=== PATIENT | female | born 1940 | race Caucasian/White ===

== ENCOUNTER 2019-03-31 19:33 | Inpatient (IN) | payer MEDICARE ==
--- NOTE | 2019-03-31 20:00 | ED ---
Adult Trauma - HPI Summary HPI Summary: 78 year old female presents to the ED with a chief complaint of right hip and knee pain secondary to falling this morning. Patient was walking in her kitchen when she tripped and fell on her right side. She denies LOC or head trauma. Patient took a nap after the fall and reports severe pain after she woke up. She reports shooting pain from her hip down her RLE. No chest pain or shortness of breath, although patient reports chronic SOB. History of right-sided sciatica , for which she just finished her course of steroids for. PMHx of DM, HTN, and depression. No history of CVA or tachycardia. PSHx of 2 c-sections and 2 carpal tunnels. FHx of PR and CVA. Patient does not smoke tobacco, drink alcohol, or do recreational drugs. - History of Current Complaint Chief Complaint: EDFall Stated Complaint: FALL PER PT Hx Obtained From: Patient ?: No Mechanism of Injury: Fall Ambulatory at the Scene: Yes Loss of Consciousness: no loss of consciousness Onset/Duration: Started Hours Ago, Still Present, Worse Since - After she took a nap Onset of Pain: Immediate - Immediate but worse throughout the day. Onset Severity: Severe Current Severity: Severe Pain Intensity: 8 Pain Scale Used: 0-10 Numeric Location: Abdomen/Pelvis, Extremities - RLE Character: Sharp - and shooting Associated Signs & Symptoms: Negative: SOB, Chest Pain, Loss of Consciousness - Allergy/Home Medications Allergies/Adverse Reactions: Allergies Allergy/AdvReac Type Severity Reaction Status Date / Time nickel Allergy Blisters Verified 03/31/19 19:41 Home Medications: Home Medications BuPROPion XL* [Bupropion XL*] 1 tab PO DAILY 04/01/19 [History Confirmed ] Divalproex Sodium [Divalproex Sodium ER] 1 tab PO DAILY 04/01/19 [History Confirmed 04/01/19] PMH/Surg Hx/FS Hx/Imm Hx Endocrine/Hematology History: Reports: Hx Diabetes - TYPE II ON ORAL MEDICATIONS Cardiovascular History: Reports: Hx Hypertension - ON MEDICATION GI History: Reports: Hx Gastroesophageal Reflux Disease - ON MEDICATION FOR Musculoskeletal History: Reports: Hx Arthritis - HANDS Sensory History: Reports: Hx Cataracts - BILATERAL, Hx Contacts or Glasses - GLASSES Denies: Hx Hearing Aid Opthamlomology History: Reports: Hx Cataracts - BILATERAL, Hx Contacts or Glasses - GLASSES Psychiatric History: Reports: Hx Depression - ON MEDICATION FOR - Cancer History Hx Chemotherapy: No Hx Radiation Therapy: No - Surgical History Surgery Procedure, Year, and Place: CARPAL TUNNEL RELEASE BILATERALLY. C- SECTIONS X 2 Hx Anesthesia Reactions: No Infectious Disease History: No Infectious Disease History: Denies: Traveled Outside the [place] in Last 30 Days - Family History Known Family History: Positive: Cardiac Disease, Other - CVA, PR - Social History Substance Use Type: Reports: None Smoking Status (MU): Never Smoked Tobacco Review of Systems - ROS Summary Review of Systems Summary: Home Medications Medication Instructions Recorded Confirmed Type Atorvastatin* [Lipitor*] 10 mg PO QAM 06/07/12 03/29/14 History Bupropion XL* [Wellbutrin XL (NF)] 150 mg PO QAM 06/07/12 03/29/14 History Citalopram TAB* [Celexa TAB*] 20 mg PO QPM 06/07/12 03/29/14 History Hydrochlorothiazide TAB* 25 mg PO QAM 06/07/12 03/29/14 History [Hydrodiuril TAB*] Lisinopril TAB* [Prinivil TAB*] 20 mg PO QAM 06/07/12 03/29/14 History Metformin HCl [Metformin HCl ER] 500 mg PO BID 06/07/12 03/29/14 History Omeprazole CAP (NF) [Prilosec CAP*] 20 mg PO QAM 06/07/12 03/29/14 History glipiZIDE TAB* [Glucotrol TAB*] 10 mg PO BID 06/07/12 03/29/14 History Negative: Fever Negative: Chest Pain Negative: Shortness Of Breath Positive: Arthralgia - right hip and knee, shooting pain from her hip. All Other Systems Reviewed And Are Negative: Yes Physical Exam - Summary Physical Exam Summary: General: Obese female. Moderately anxious appearing. Moderate discomfort with movement. HEENT: Normocephalic, Atraumatic. Eyes: Conjuctiva normal, PERRL. Ears: TMs within normal limits. Nares: (-) discharge, (-) erythema. Oropharynx: Clear, mucous membranes moist, (-) exudates. Neck: Soft, FROM, (-) lymphadenopathy, (-) thyromegaly, (-) JVD. Cardiovascular: Sinus rhythm, (-) murmur. Very tachycardic initially. Lungs: Clear to auscultation bilaterally (-) wheezes, (-) rales, (-) rhonchi. Abdomen: Soft, non-tender, non-distended, (-) organomegaly, normal bowel sounds. Back: (-) CVA tenderness Extremities: Tenderness of right posterior buttock. Normal strength, sensation, and reflexes and pulses in lower extremities bilaterally. Trace lower extremity edema. Skin: Warm, dry, (-) rash. Neuro: Alert and oriented x3, no focal deficits. Psychiatric: Mood normal, affect normal. Triage Information Reviewed: Yes Vital Signs On Initial Exam: Initial Vitals Temp Pulse Resp BP Pulse Ox 96.0 F 120 18 195/164 98 03/31/19 19:34 03/31/19 19:34 03/31/19 19:34 03/31/19 19:34 03/31/19 19:34 Vital Signs Reviewed: Yes Procedures - Sedation Patient Received Moderate/Deep Sedation with Procedure: No Diagnostics - Vital Signs Vital Signs Temp Pulse Resp BP Pulse Ox 03/31/19 19:34 96.0 F 120 18 195/164 98 - Laboratory Result Diagrams: 04/02/19 06:02 04/03/19 06:08 Lab Statement: Any lab studies that have been ordered have been reviewed, and results considered in the medical decision making process. - Radiology Chest XR Radiology Interpretation Completed By: ED Physician Summary of Radiographic Findings: Increased interstitial markings consistent CHF. No obvious infiltrate. An ED physician has interpreted and reviewed this scan. Pending official read. - EKG 1945 Cardiac Rate: Tachycardia - 191 bpm EKG Rhythm: Sinus Tachycardia ST Segment: Normal Summary of EKG Findings: EKG at 1945 reveals wide complex tachycardia with rate of 191 BPM. No STEMI. This EKG was reviewed and interpreted by Dr. Tong. 1957 Cardiac Rate: Tachycardia - 150 bpm EKG Rhythm: SVT Summary of EKG Findings: EKG at 1957 reveals SVT with rate of [address] elevation at III. No STEMI. This EKG was reviewed and interpreted by Dr. Tong. 2017 Cardiac Rate: Bradycardia - 58 bpm EKG Rhythm: Sinus Bradycardia ST Segment: Normal Ectopy: None Summary of EKG Findings: EKG at 2018 reveals bradycardic sinus rhythm with rate of 58 BPM, no acute changes, no ischemic changes. No STEMI. This EKG was reviewed and interpreted by Dr. Tong. Re-Evaluation - Re-Evaluation First Eval Re-Evaluation Time: 21:57 Change: Improved Comment: Patient is feeling better after being given an ice pack toradol. Heart rate is stable. I spoke to Dr. Harman Lopez who agrees to admit as observation. Adult Trauma Course/Dx - Course Course Of Treatment: 78-year-old female presents with left hip pain after fall this morning. Describes as sciatica. She states she just had an episode of this which just resolved. Pain has increased through the day. Worse with movement. No problem controlling bowel or bladder. No foot drop. upon arrival patient has heart rate of 190. Patient had no chest pain, shortness of breath. Denies any previous history of this. Patient's heart rate fluctuates greatly in the emergency room. At 150. 120. Appears to be wide complex, SVT at one point. Prior to any medication given the patient's heart rate decreases to the 60s. Sinus rhythm. she has workup demonstrates a negative troponin. Elevated BNP. chest x-ray negative. Patient referred to hospitalist for admission. - Diagnoses Provider Diagnoses: Fall, Right sided sciatica, Tachycardia - Physician Notifications Discussed Care Of Patient With: Harman Lopez - Hospitalist Time Discussed With Above Provider: 22:00 Instructed by Provider To: Admit As Observation - I spoke to Dr. Lopez at 2200. He recommends this patient for admission as observation. Admit/Transition Orders Completed By ED Provider: Yes Discharge ED - Sign-Out/Discharge Documenting (check all that apply): Patient Departure - admit - Discharge Plan Condition: Stable Disposition: ADMITTED TO [facility] - Billing Disposition and Condition Condition: STABLE Disposition: Admitted to [facility] - Attestation Statements Document Initiated by Scribe: Yes Documenting Scribe: Yaw Muniz Provider For Whom Nickibthuy is Documenting (Include Credential): Cassandra Tong MD Scribe Attestation: Yaw Xiong, scribed for Cassandra Tong MD on 04/03/19 at 2215. Scribe Documentation Reviewed: Yes Provider Attestation: The documentation as recorded by the scribYaw daley accurately reflects the service I personally performed and the decisions made by me, Cassandra Tong MD Status of Scribe Document: Viewed
--- OUTSIDE RECORDS SUMMARY | 2019-03-31 20:03 | XMS REPORT | Continuity of Care Document ---
:1940 External Reference #:[id number] Author Name Miki Gould M.D. Address [address] [place] [id number] Problems Description No Information Available Social History Type Date Description Comments Sex Unknown Tobacco Use Start: Unknown End: Former Cigarette Smoker quit 30 years ago Unknown ETOH Use Occasionally consumes alcohol Recreational Drug Use Denies Drug Use Enjoy Exercising Enjoys exercising walks some Allergies, Adverse Reactions, Alerts Description No Known Drug Allergies Medications Active Medications SIG Qnty Indications Ordering Date Provider Medrol dose pack take 21units Miki Gould, 03/26/2019 4mg TBPK as directed M.D. Ibuprofen 200 2-3 tabs by 60tabs M54.31 Miki Gould, 03/14/2019 200mg Tablets mouth three M.D. times a day for pain. Take with food. May cause heartburn. Bumetanide 1 by mouth 30tabs Carlos 04/21/2018 0.5mg Tablets every day as MD Thom needed for swollen ankles Blood Glucose Monitoring use as directed 1units Carlos 04/21/2018 System to test blood MD Thom W/Device Kit glucose once daily as per insurance coverage Glycolax 17 g daily in 8 255gm Pricilla 04/15/2018 3350NF Powder oz of water. Andrae Vásquez., R.D. Bupropion Hydrochloride 1 by mouth 90tabs Carlos 04/06/2018 ER (XL) every day MD Thom 300mg Tablets ER 24HR Glipizide 1 tab by mouth 90tabs E11.65 Carlos 07/22/2017 5mg Tablets with breakfast. MD Thom True Metrix Self use as directed 150units E11.65 Carlos Monitoring Blood Glucose to test blood MD Thom Strips sugars once Strips daily dx: e11.65 or as per brand covered by insurance. Trueplus Lancets 28G use as directed 200units Carlos 28G Misc to test blood MD Thom sugars once daily dx: e11.65 or as per brand covered by insurance Metformin HCL ER 2 tab by mouth 360tabs Carlos 500mg Tablets every morning MD Thom ER 24HR and 2 tabs by mouth in the evening Citalopram Hydrobromide 1 by mouth 90tabs Carlos 20mg every day MD Thom Tablets Atorvastatin Calcium 1 tab by mouth 90tabs Carlos 10mg every day MD Thom Tablets Divalproex Sodium ER 1 tab by mouth 90tabs Carlos 250mg every night at MD Thom Tablets ER 24HR bedtime Hydrochlorothiazide 1 tab by mouth 90tabs Carlos 25mg every day MD Thom Tablets Lisinopril 1 tab by mouth 90tabs Carlos 20mg Tablets every day MD Thom Omeprazole 1 by mouth 90caps Carlos 20mg Capsules DR every day MD Thom Immunizations CPT Code Status Date Vaccine Lot # [id number] Given 10/26/2017 Influenza Vaccine High Dose PF [id number] Given 03/14/2017 Prevnar-13 Pneumococcal Conjugate Vaccine [id number] 32948 Given 12/15/2016 Influenza Virus Vaccine, Quadrivalent, 3 Yr > Quad, Preserv Free 62906 Given 12/30/2014 Influenza Virus Vaccine, Quadrivalent, 3 Yr > Quad, Preserv Free 51639 Given 11/19/2011 Influenza Virus Vaccine, Quadrivalent, 3 Yr > Quad, Preserv Free [id number] Given 12/04/2008 Pneumovax 23 (PPSV23) 65+ years or high risk 2 to 64 year old Vital Signs Date Vital Result Comment 03/14/2019 9:59am Weight 214.00 lb Weight 97.070 kg BP Systolic 128 mmHg BP Diastolic 64 mmHg Heart Rate 70 /min Body Temperature 97.7 F Respiratory Rate 16 /min Height 61 inches 5'1" BMI (Body Mass Index) 40.4 kg/m2 O2 % BldC Oximetry 98 % 10/05/2018 3:12pm Weight 215.00 lb Weight 97.524 kg BP Systolic 120 mmHg BP Diastolic 80 mmHg Heart Rate 68 /min Body Temperature 97.8 F Respiratory Rate 16 /min O2 % BldC Oximetry 98 % Results Test Acquired Date Facility Test Result H/L Range Note CBC Auto 03/14/2019 [facility] White Blood 5.6 10^3/ uL Normal 3.5-10.8 Diff [phone] Count Red Blood Count 3.89 10^6/uL Normal 3.70-4.87 Hemoglobin 9.6 g/dL Low 12.0-16.0 Hematocrit 30 % Low 35-47 Mean Corpuscular Volume 76 fL Low 80-97 Mean Corpuscular Hemoglobin 25 pg Low 27-31 Mean Corpuscular HGB Conc 33 g/dL Normal 31-36 Red Cell Distribution Width 17 % High 10-15 Platelet Count 215 10^3/uL Normal 150-450 Mean Platelet Volume 9.3 fL Normal 7.4-10.4 Abs Neutrophils 3.7 10^3/uL Normal 1.5-7.7 Abs Lymphocytes 1.4 10^3/uL Normal 1.0-4.8 Abs Monocytes 0.5 10^3/uL Normal 0-0.8 Abs Eosinophils 0.1 10^3/uL Normal 0-0.6 Abs Basophils 0.0 10^3/uL Normal 0-0.2 Abs Nucleated RBC 0.0 10^3/uL Granulocyte % 65.3 % Lymphocyte % 24.7 % Monocyte % 8.7 % Eosinophil % 1.0 % Basophil % 0.3 % Nucleated Red Blood Cells % 0.0 Comp Metabolic 03/14/2019 [facility] Sodium 137 mmol/ L Normal 135-145 Panel [phone] Potassium 4.7 mmol/L Normal 3.5-5.0 Chloride 104 mmol/L Normal 101-111 Co2 Carbon Dioxide 24 mmol/L Normal 22-32 Anion Gap 9 mmol/L Normal 2-11 Glucose 89 mg/dL Normal 70-100 Blood Urea Nitrogen 30 mg/dL High 6-24 Creatinine 1.44 mg/dL High 0.51-0.95 BUN/Creatinine Ratio 20.8 High 8-20 Calcium 9.0 mg/dL Normal 8.6-10.3 Total Protein 6.6 g/dL Normal 6.4-8.9 Albumin 3.9 g/dL Normal 3.2-5.2 Globulin 2.7 g/dL Normal 2-4 Albumin/Globulin Ratio 1.4 Normal 1-3 Total Bilirubin 0.40 mg/dL Normal 0.2-1.0 Alkaline Phosphatase 117 U/L High 34-104 Alt 11 U/L Normal 7-52 Ast 12 U/L Low 13-39 Egfr Non- 35.4 >60 Egfr 42.8 >60 1 Laboratory test 03/14/2019 [facility] Hemoglobin A1c 7.4 % High 4.0-5.6 2 finding [phone] (Glyco HGB) TSH (Thyroid Stim Horm) 2.77 mcIU/mL Normal 0.34-5.60 3 Lipid Profile 03/14/2019 [facility] Triglycerides 98 mg/dL 4 (Trig/Chol/HDL) [phone] Cholesterol 109 mg/dL 5 HDL Cholesterol 43.5 mg/dL 6 LDL Cholesterol 46 mg/dL 7 Laboratory test finding 10/05/2018 In House Lab Hemoglobin A1c Poct 7.1 [phone] 1 Because ethnic data is not always readily available, this report includes an eGFR for both -Americans and non- Americans. The National Kidney Disease Education Program (NKDEP) does not endorse the use of the MDRD equation for patients that are not between the ages of 18 and 70, are , have extremes of body size, muscle mass, or nutritional status, or are non- or non-. According to the National Kidney Foundation, irrespective of diagnosis, the stage of the disease is based on the level of kidney function: Stage Description GFR(mL/min/1.73 m(2)) 1 Kidney damage with normal or decreased GFR 90 2 Kidney damage with mild decrease in GFR 60-89 3 Moderate decrease in GFR 30-59 4 Severe decrease in GFR 15-29 5 Kidney failure <15 (or dialysis) 2 Therapeutic target for the treatment of diabetes mellitus patients is <7% HBA1C, and in selective patients <6.0%. Please refer to [place] [employer] Association diabetic care guidelines for further information. 3 [id number] 4 Desirable: <150 Borderline High: 150-199 High: 200-499 Very High: >500 5 Desirable: <200 Borderline High: 200-239 High: >239 6 Low: <40 Desirable: 40-60 High: >60 7 Desirable: <100 Near Optimal: 100-129 Borderline High: 130-159 High: 160-189 Very High: >189 Procedures Description No Information Available Medical Devices Description No Information Available Encounters Type Date Location Provider Dx Diagnosis Office Visit 10/05/2018 Main Office Miki Gould M.D. M79.671 Pain in right foot 3:15p E11.65 Type 2 diabetes mellitus with hyperglycemia Assessments Date Code Description Provider 03/14/2019 M54.31 Sciatica, right side Miki Gould M.D. 03/14/2019 E11.65 Type 2 diabetes mellitus with hyperglycemia Miki Gould M.D. 10/05/2018 M79.671 Pain in right foot Miki Gould M.D. 10/05/2018 E11.65 Type 2 diabetes mellitus with hyperglycemia Miki Gould M.D. Plan of Treatment Future Appointment(s):04/04/2019 11:00 am - Miki Gould M.D. at Main Office Functional Status Description No Information Available Mental Status Description No Information Available Referrals Description No Information Available
[2019-03-31] MEDS ORDERED: Labetalol IV* 5 MG/ML 20 ML VIAL IV PUSH ONE (20:07)
[2019-03-31] MEDS ORDERED: Ketorolac INJ* 30 MG/ML 1 ML VIAL IV PUSH ONE (20:08)
[2019-03-31] MEDS ORDERED: Aspirin 81 mg CHEW TAB* 81 MG TAB.CHEW PO ONE (20:17)
[2019-03-31 20:50] LABS: ABS Basophils 0.1 10^3/ul (0-0.2); ABS Lymphocytes 1.9 10^3/ul (1.0-4.8); ABS Monocytes 0.8 10^3/ul (0-0.8); ABS Neutrophils 7.6 10^3/ul (1.5-7.7); Eosinophil % 0.3 %; Hematocrit 30 % (35-47); Hemoglobin 9.8 g/dL (12.0-16.0); Lymphocyte % 18.7 %; Mean Corpuscular HGB Conc 33 g/dL (31-36); Mean Corpuscular Hemoglobin 24 pg (27-31); Mean Corpuscular Volume 75 fL (80-97); Mean Platelet Volume 8.3 fL (7.4-10.4); Platelet Count 265 10^3/uL (150-450); Red Blood Count 4.01 10^6 /uL (3.70-4.87); Red Cell Distribution Width 17 % (10-15); White Blood Count 10.4 10^3/uL (3.5-10.8)
[2019-03-31 20:58] LABS: INR 1.11 (0.82-1.09)
[2019-03-31 21:08] LABS: ALT 12 U/L (7-52); AST 8 U/L (13-39); Albumin 4.1 g/dL (3.2-5.2); Albumin/Globulin Ratio 1.4 (1-3); Alkaline Phosphatase 102 U/L (34-104); Anion Gap 8 mmol/L (2-11); BUN/Creatinine Ratio 22.5 (8-20); Blood Urea Nitrogen 34 mg/dL (6-24); CO2 Carbon Dioxide 24 mmol/L (22-32); Calcium 9.5 mg/dL (8.6-10.3); Chloride 106 mmol/L (101-111); EGFR African American 40.5 (>60); EGFR Non-African American 33.5 (>60); Glucose 90 mg/dL (70-100); Magnesium 1.1 mg/dL (1.9-2.7); Potassium 4.3 mmol/L (3.5-5.0); Sodium 138 mmol/L (135-145); Total Protein 7.1 g/dL (6.4-8.9)
[2019-03-31 21:09] LABS: Troponin I 0.01 ng/mL (<0.03)
[2019-03-31 21:49] LABS: TSH (Thyroid Stimulating Horm) 3.88 mcIU/mL (0.34-5.60)
[2019-03-31] MEDS ORDERED: Magnesium Sulf 4 GM/100 ML IV* 4,000 MG/100 ML BAG IVPB ONE (22:50)
[2019-03-31] MEDS ORDERED: Adenosine* 3 MG/ML VIAL ONE (23:50)
[2019-03-31] MEDS: Adenosine* 3 MG/ML VIAL IV PUSH ONE ×2 (23:57→23:59)
[2019-03-31] MEDS ORDERED: Adenosine* 3 MG/ML VIAL IV PUSH ONE (23:59)
[2019-04-01] MEDS ORDERED: Adenosine* 3 MG/ML VIAL IV PUSH ONE (00:01)
[2019-04-01] MEDS: Adenosine* 3 MG/ML VIAL IV PUSH ONE (00:01)
[2019-04-01] MEDS ORDERED: Amiodarone IV VIAL** 50 MG/ML 3 ML (150 MG) VIAL ONE (00:03)
[2019-04-01] MEDS ORDERED: Amiodarone 150 MG IVPREMIX* 150 MG/100 ML BAG IV ONE ×2 (00:03→00:05)
[2019-04-01] MEDS ORDERED: Metoprolol Tartrate IV* 1 MG/ML 5 ML VIAL IV ONE (00:08)
[2019-04-01] MEDS ORDERED: Metoprolol Tartrate IV* 1 MG/ML 5 ML VIAL ONE (00:14)
[2019-04-01] MEDS ORDERED: Amiodarone 360 MG IVPREMIX* 360 MG/200 ML BAG IV ONE (00:28)
[2019-04-01 01:08] LABS: % Iron Saturation 5 % (15-55); Iron 24 ug/dL (50-212); Total Iron Binding Capacity 468 mcg/dL (250-450); Transferrin 334 mg/dL (203-362)
[2019-04-01] MEDS ORDERED: Ibuprofen TAB* 400 MG PO PRN (01:09)
[2019-04-01] MEDS: Acetaminophen TAB* 325 MG PO PRN ×3 (01:21→21:05)
[2019-04-01 06:06] LABS: Magnesium 2.3 mg/dL (1.9-2.7); Potassium 4.2 mmol/L (3.5-5.0)
[2019-04-01 06:11] LABS: BUN/Creatinine Ratio 24.4 (8-20); EGFR African American 36.9 (>60); EGFR Non-African American 30.5 (>60)
[2019-04-01] MEDS ORDERED: Perflutren Lipid Microsphere* 3 ML VIAL ONE (08:42)
[2019-04-01] MEDS: Atorvastatin* 10 MG TAB PO SCH (08:59)
[2019-04-01] MEDS: Ferrous Gluconate TAB* 324 MG TAB PO SCH (08:59)
--- NOTE | 2019-04-01 11:02 | ECHO ---
*[facility]* [place] [address] Fax #: [phone] Transthoracic Echocardiogram Patient: Denia Garrison : 1940 Study Date: 04/01/2019 Age: 78 Gender: F HR: 114 bpm Height: 60 in /152.4 cm BSA: 1.92 m^2 Weight: 214.6 lb /97.5 kg BMI: 42 kg/m^2 *Plan Checker: * Nicolette Suresh RDCS RN *Referring Physician: * Harman Lopez *Reading Physician: * Sara Velasquez MD Indications: SOB. Abnormal EKG. History: Risk factors: Hypertension. Diabetes mellitus. Obese. Conclusions Summary: - Study data: Sinus bradycardia to Atrial fibrillation during the exam. - Left ventricle: The cavity size is mildly reduced. Wall thickness is mildly increased. Systolic function is mildly reduced. The estimated ejection fraction is 45-50%. Doppler parameters are consistent with elevated ventricular end-diastolic filling pressure. - Left atrium: The atrium is moderately to severely dilated. - Mitral valve: There is mild regurgitation. - Tricuspid valve: There is trace to mild regurgitation. - Pulmonary arteries: Systolic pressure is mildly increased, estimated to be 38 mm Hg. - No prior echocardiogram to compare. Study data: Transthoracic echocardiogram. Procedure: Transthoracic echocardiography was performed. Image quality was fair. The study was technically limited due to body habitus. Intravenous Definity 3 ml was administered to enhance imaging. Complete 2D, spectral Doppler, and color flow Doppler. Location: ICU Patient status: Observation. Patient room number: ICU 2. Rhythm: Sinus bradycardia to Atrial fibrillation during the exam. Findings Left ventricle: The cavity size is mildly reduced. Wall thickness is mildly increased. Systolic function is mildly reduced. The estimated ejection fraction is 45-50%. There are no regional wall motion abnormalities. Left ventricular diastolic function parameters are indeterminate. Doppler parameters are consistent with elevated ventricular end-diastolic filling pressure. Right ventricle: The cavity size is normal. Systolic function is mildly reduced. [place] relatively hypokinetic. Systolic pressure is mildly increased. Left atrium: The atrium is moderately to severely dilated. Right atrium: The atrium is mildly dilated. Mitral valve: The leaflets are mildly thickened. There is no evidence of stenosis. There is mild regurgitation. Aortic valve: The leaflets are mildly thickened. Cusp separation is normal. There is no evidence of stenosis. There is no significant regurgitation. Tricuspid valve: Not well visualized. There is trace to mild regurgitation. Pulmonic valve: Not well visualized. There is trace to mild regurgitation. Aorta: Aortic root: The aortic root is not dilated. Ascending aorta: The ascending aorta is not dilated. Aortic arch: The aortic arch is not visualized. Pericardium: There is no significant pericardial effusion. Pulmonary arteries: Not well visualized. Systolic pressure is mildly increased, estimated to be 38 mm Hg. Systemic veins: Inferior vena cava: Not well visualized. Measurements Left ventricle Value Ref Right atrium Value Ref DILSHAD, LAX (L) 3.6 cm 3.8 - 5.2 ML dim, ES, A4C 4.3 cm 2.6 - 4.4 ESD, LAX 2.9 cm 2.2 - 3.5 SI dim, ES, A4C (H) 5.7 cm 3.4 - 5.3 PW, ED (H) 1.0 cm 0.6 - 0.9 Estimated RAP 8 mm Hg --------- IVS/PW, ED 1.15 E', lat latanya, TDI (L) 7.4 cm/sec >=10.0 Aortic valve Value Ref E/e', lat latanya, 20 Latanya diam, ED 2.0 cm ------- -- TDI Peak v, S 1.05 m/sec --------- E', med latanya, TDI 10.0 cm/sec >=7.0 VTI, S 17.8 cm ---- ----- E/e', med latanya, 15 Mean grad, S 3.0 mm Hg ------- -- TDI Peak grad, S 4.0 mm Hg --------- E', avg, TDI 8.7 cm/sec LVOT/AV, VTI ratio 0.74 ------- -- E/e', avg, TDI (H) 17 <=14 Mitral valve Value Ref LVOT Value Ref Peak E 1.5 m/sec --------- Peak ketan, S 0.74 m/sec Decel time 216 ms --------- VTI, S 13.1 cm PHT 104 ms --------- Mean grad, S 1 mm Hg Mean grad, D 3.0 mm Hg --------- Peak grad, D 9.0 mm Hg --------- Ventricular septum Value Ref MVA, PHT 2.8 cm^2 --------- IVS, ED (H) 1.1 cm 0.6 - 0.9 Tricuspid valve Value Ref Right ventricle Value Ref Peak RV-RA grad, S 30 mm Hg --------- DILSHAD, LAX 2.9 cm Max TR ketan 2.73 m/sec --------- DILSHAD minor ax, A4C 2.9 cm 1.9 - 3.5 mid Aortic root Value Ref Pressure, S 38 mm Hg Root diam 2.8 cm <4.1 Left atrium Value Ref Ascending aorta Value Ref AP dim, ES (H) 4.50 cm 2.70 - AAo AP diam, S 3.2 cm --------- 3.80 ML dim, A4C 5.1 cm Pulmonary artery Value Ref SI dim, A4C 5.9 cm Pressure, S 38.0 mm Hg --------- Vol/bsa, ES, 1-p (H) 55 ml/m^2 11 - 40 A4C Vol/bsa, ES, A/L (H) 53 ml/m^2 16 - 34 Legend: (L) and (H) nicol values outside specified reference range. Prepared and electronically signed by Sara Velasquez MD 04/01/2019 11:01
[2019-04-01] MEDS ORDERED: Dextrose 50% Syringe 50 ML* 25 GM/50 ML SYRINGE IV PUSH PRN (11:06)
[2019-04-01] MEDS ORDERED: Insulin LISPRO* 1 UNITS UNIT SUBCUT SCH (12:00)
[2019-04-01] MEDS: Lidocaine PATCH 5%* 1 PATCH TRANSDERM SCH (13:42)
--- NOTE | 2019-04-01 14:10 | PN ---
Date of Service: 04/01/19 Critical Care Services: Patient seen and examined. Pleasant, offers no complaints. Denies chest pain, no SOB, no palpitations. No headache or blurred vision. Pain in back and hip well controlled. Discussed plan of care at length. Family present. Vital Signs: Temp Pulse Resp BP SpO2 FiO2 96.7 F 50 14 89/43 98 04/01/19 07:34 04/01/19 13:00 04/01/19 13:00 04/01/19 12:02 04/01/19 13:00 Physical Exam: General: Alert, NAD HEENT: Normocephalic, atraumatic, non-icteric sclera, moist oral mucosa Neck: soft, supple, no JVD CV: Irregular rate and rhythm, no murmurs or rubs Pulm/Chest: Good bilateral air entry, no rhonchi or rales, no wheeze Abdomen/GI: soft, nontender, nondistended, +BS noted MSK/Skin: warm, dry, intact, +2 pulses+, no edema or cyanosis Neuro: A&Ox3, no gross focal deficits Psych: Appropriate affect and mood Fluid Balance (Past 24 Hours): I= O= Net Intake & Output 03/30/19 03/31/19 04/01/19 04/02/19 06:59 06:59 06:59 06:59 Intake Total 220 Output Total 200 Balance 20 Weight 210 lb 5.136 oz Intake: IV Fluids 100 Medicated IV 120 CC - Amiodarone 120 Oral 0 Output: Urine 200 Other: Estimated Void Large # Voids 1 Labs: Laboratory Results - last 24 hr 03/31/19 03/31/19 03/31/19 20:42 20:42 20:42 WBC 10.4 RBC 4.01 Hgb 9.8 L Hct 30 L MCV 75 L MCH 24 L MCHC 33 RDW 17 H Plt Count 265 MPV 8.3 Neut % (Auto) 73.0 Lymph % (Auto) 18.7 Gilliam % (Auto) 7.4 Eos % (Auto) 0.3 Baso % (Auto) 0.6 Absolute Neuts (auto) 7.6 Absolute Lymphs (auto) 1.9 Absolute Monos (auto) 0.8 Absolute Eos (auto) 0.0 Absolute Basos (auto) 0.1 Absolute Nucleated RBC 0.0 Nucleated RBC % 0.0 INR (Anticoag Therapy) 1.11 H APTT 33.0 D-Dimer, Quantitative 320 H Sodium 138 Potassium 4.3 Chloride 106 Carbon Dioxide 24 Anion Gap 8 BUN 34 H Creatinine 1.51 H Est GFR ( Amer) 40.5 Est GFR (Non-Af Amer) 33.5 BUN/Creatinine Ratio 22.5 H Glucose 90 POC Glucose (mg/dL) Lactic Acid Calcium 9.5 Magnesium 1.1 L Iron 24 L TIBC 468 H % Saturation 5 L Unsat Iron Binding < 453 Transferrin 334 Ferritin 5.0 L Total Bilirubin 0.30 AST 8 L ALT 12 Alkaline Phosphatase 102 Troponin I 0.01 B-Natriuretic Peptide Total Protein 7.1 Albumin 4.1 Globulin 3.0 Albumin/Globulin Ratio 1.4 TSH 3.88 03/31/19 03/31/19 03/31/19 20:42 20:42 23:30 WBC RBC Hgb Hct MCV MCH MCHC RDW Plt Count MPV Neut % (Auto) Lymph % (Auto) Gilliam % (Auto) Eos % (Auto) Baso % (Auto) Absolute Neuts (auto) Absolute Lymphs (auto) Absolute Monos (auto) Absolute Eos (auto) Absolute Basos (auto) Absolute Nucleated RBC Nucleated RBC % INR (Anticoag Therapy) APTT D-Dimer, Quantitative Sodium Potassium Chloride Carbon Dioxide Anion Gap BUN Creatinine Est GFR ( Amer) Est GFR (Non-Af Amer) BUN/Creatinine Ratio Glucose POC Glucose (mg/dL) Lactic Acid 1.5 Calcium Magnesium Iron TIBC % Saturation Unsat Iron Binding Transferrin Ferritin Total Bilirubin AST ALT Alkaline Phosphatase Troponin I 0.02 B-Natriuretic Peptide 177 H Total Protein Albumin Globulin Albumin/Globulin Ratio TSH 04/01/19 04/01/19 04/01/19 02:00 02:30 05:34 WBC RBC Hgb Hct MCV MCH MCHC RDW Plt Count MPV Neut % (Auto) Lymph % (Auto) Gilliam % (Auto) Eos % (Auto) Baso % (Auto) Absolute Neuts (auto) Absolute Lymphs (auto) Absolute Monos (auto) Absolute Eos (auto) Absolute Basos (auto) Absolute Nucleated RBC Nucleated RBC % INR (Anticoag Therapy) APTT D-Dimer, Quantitative Sodium 137 Potassium 4.2 Chloride 105 Carbon Dioxide 25 Anion Gap 7 BUN 40 H Creatinine 1.64 H Est GFR ( Amer) 36.9 Est GFR (Non-Af Amer) 30.5 BUN/Creatinine Ratio 24.4 H Glucose 160 H POC Glucose (mg/dL) 280 H Lactic Acid Calcium 9.0 Magnesium 2.3 Iron TIBC % Saturation Unsat Iron Binding Transferrin Ferritin Total Bilirubin AST ALT Alkaline Phosphatase Troponin I 0.02 B-Natriuretic Peptide Total Protein Albumin Globulin Albumin/Globulin Ratio TSH Studies: Patient Name: DENIA GARRISON Medical Record#: [id number] Ordering Physician: Bailey Stout NP Acct.#: [id number] : 1940 Age: 78 Sex: F Location: [facility] Exam Date: 04/01/19 1202 ADM Status: ADM Carmela Order Information: CT BRAIN WO Accession Number: [id number] CPT: 47899 Indication: Fall, head injury. CT of the brain performed without IV contrast. Ventricular structures are midline. No midline shift is noted. The extraction spaces are unremarkable. There is no evidence of intracranial mass or hemorrhage. No other high or low density lesions are identified. Mastoid air cells and paranasal sinuses are unremarkable. IMPRESSION: No intracranial mass or hemorrhage is noted. *[facility]* [place] [address] Fax #: [phone] Transthoracic Echocardiogram Patient: Denia Garrison : 1940 Study Date: 04/01/2019 Age: 78 Gender: F HR: 114 bpm Height: 60 in /152.4 cm BSA: 1.92 m^2 Weight: 214.6 lb /97.5 kg BMI: 42 kg/m^2 *Audio Visual Aide: * Nicolette Suresh RDCS RN *Referring Physician: * Harman Lopez *Reading Physician: * Sara Velasquez MD Indications: SOB. Abnormal EKG. History: Risk factors: Hypertension. Diabetes mellitus. Obese. Conclusions Summary: - Study data: Sinus bradycardia to Atrial fibrillation during the exam. - Left ventricle: The cavity size is mildly reduced. Wall thickness is mildly increased. Systolic function is mildly reduced. The estimated ejection fraction is 45-50%. Doppler parameters are consistent with elevated ventricular end-diastolic filling pressure. - Left atrium: The atrium is moderately to severely dilated. - Mitral valve: There is mild regurgitation. - Tricuspid valve: There is trace to mild regurgitation. - Pulmonary arteries: Systolic pressure is mildly increased, estimated to be 38 mm Hg. - No prior echocardiogram to compare. Nutrition: Heart healthy no caffeine Impression: This is a 78 year old female with history of mood disorder iron deficiency anemia, frequent falls, sciatica and CKD that presented to the ED after a fall, then found to be in a wide complex tachycardia. Diagnoses: 1. Afib with RVR/Tachy-Geoff Syndrome 2. Frequent Falls 3. DMII 4. CHUCK on CKD 5. Iron Deficiency Anemia 6. Hx of depression and mood disorder 7. Hx of sciatica/chronic pain Plan: Neuro - Patient describes striking her head during the fall, sent for CT to r/o occult bleeding - CT head negative for any acute findings - Mentating appropriately - No active issues CV - Rate has fluctuated from rapid afib to junctional, but per cardiology did not appear to be in any ventricular arrhythmia at any time - Currently bradycardic and alternating between afib and sinus geoff - Plan per cardiology, r/o bleeding given low H&H (which is more likely chronic iron deficiency rather than GIB) before opting to place on eliquis for anticoagulation. In terms of rate control, she is off amiodarone, will need something for rate control, multaq vs low dose metoprolol? and will likely need pacemaker in the future and holter monitoring as an outpatient - Echo shows reduced EF to approx 45% - Ordered overnight pulse oximetry, may be component of LIBRADO - Adjust BP meds at discharge if BB start for rate control, home BP meds currently on hold Resp - No active issues, but will address any findings on overnight oximetry as needed ID - No active issues GI - Follow occult stool when available - Consistent carb diet - PPI Renal- - Baseline CKD since last 4 years with creat above baseline, may be in presence of GIB vs advancing medical renal disease, also use of NSAIDS for back pain - Hold all NSAIDS - Replete to keep K>4, Mg>2 - UOP adequate - Monitor daily labs Heme - Iron studies indicative of iron deficiency - Evaluated records from 2014, EGD and colonoscopy; had small AVMs, no ulcers and no bleeding and stool occult was negative then. Not likely that low H&H is related to active bleeding now, but will obtain occult stool to ensure no bleeding before starting on NOAC - Continue iron supplementation Endo - A1c 7.4% - Maintain BG<200, insulin protocol as needed with lispro SS - Restart glipizide tomorrow MSK/SKIN - OOB to chair with assist, PT consult - Hold NSAIDS, trial lidoderm patch and tylenol for pain - Can trial tylenol with codeine for severe pain Psychosocial - Restart psychiatric meds in AM DVT prophylaxis: HSQ GI prophylaxis: PPI daily Central Line: None Disposition: Medically stable for downgrade to telemetry Patient clinical status: Stable Code Status: Full Total Critical Care time is 45 minutes
--- NOTE | 2019-04-01 14:37 | HP ---
HISTORY AND PHYSICAL: DATE OF ADMISSION: 03/31/19 ADMITTING PROVIDER: Harman Lopez MD PRIMARY CARE PROVIDER: Dr. Gould. CHIEF COMPLAINT: Right hip pain radiating to her leg after a mechanical fall. Course in the emergency room complicated by wide complex tachycardia. HISTORY OF PRESENT ILLNESS: Denia Garrison is a 78-year-old female with past medical history of xtr-etianfs-ylgablbcn diabetes mellitus, hypertension, hyperlipidemia, depression. She slipped on some ice around [facility] [place] and though she did not hit the ground, she seems to have twisted her body during the recovery effort. She developed increasing pain in her right hip with some radiation down her right leg. One week ago, she sought evaluation by primary care doctor and she was referred to [facility] and she received methylprednisolone pack, which improved her symptoms. The morning of admission, her shoe caught on something and she fell forward with her head hitting into the wall and then tumbling down onto a concrete floor. She denies that she lost consciousness, but did take her a little bit of time to get up from the floor get situated. Her pain in her right hip returned and progressed throughout the day. She contacted Dr. Gould, who eventually recommended that she come to the emergency room for further evaluation. Here, she was found to have a wide complex tachycardia with a heart rate 191 around the 1945 EKG. She was asymptomatic from that perspective, more focused on the pain that she have with ambulation in the emergency room. , she does have episodes of fluttering in her chest and had episodes when she was driving where she felt like she had a pressure in her head until like she had to pullover multiple times, this was back on [place] or [facility] last year. She is relatively a poor historian in terms of time and frequency of these events. Repeat EKG at 1957 shows heart rate 150, still with some widened QRS complexes, especially V1 to V3 and then by the EKG of 2018, she had slowed down all the way to 58 with evidence of a right bundle-branch block and possible isolated ST elevation in lead 3. She was referred to hospitalist service for consultation given this wide complex tachycardia. It was noted that her magnesium was very low at 1.1 and she had started to be supplemented with 4 g of that. She is notably on a Dyazide diuretic and PPI and also relates frequent diarrhea for about a year's duration, and she had multiple loose bowel movements on the morning of admission , though again, she is somewhat poor historian in terms of frequency. She was getting ready to get up to go to the commode. Once again, she went into a wide complex tachycardia between 160s and 180s. She was initially relatively asymptomatic, but her anxiety did increase given the commotion in the room to set up the EKG and the additional providers that were evaluating her, when she would say that she does feel some again fluttering in her chest during this episode. Denied any chest pain. Upon further review, she does say that she gets very stiff neck with exertion and this occurs seemingly randomly and not continuously and also has sometimes associated with wheezing. The EKG of 2353 showed QRS of 132, heart rate 165. She was hooked up to a continuous EKG. The V4 to V6 leads were notably to have narrow QRS complexes. She was given 6 mg of adenosine at 2356. This briefly slowed the heart rate but soon back to the 150s to 160s. She got 12 mg of adenosine at 2358 and this slowed the heart rate down to the 60s for about 7 seconds before returning to the 150s to 160s. She got an additional 12 mg of adenosine at 2358 and this slowed the heart rate again for approximately 8 seconds before returning again to heart rate 150s to 160s. There was continuous EKG traces, not the best quality with wandering baseline and no clear P waves are seen in the best lead of V5. V2 continued to have a widened QRS complex, but there was some irregularity in the V5 lead. At that point, 150 mg bolus of amio was given for the wide complex tachycardia and her rate did slow mostly to the 120s to 130s. An additional 5 mg Lopressor was trialed without much effect. She was admitted to the ICU for further amio drip. Repeat EKG at 227 seemed to show atrial fibrillation again with a right bundle-branch block, heart rate 104, and at 356, a repeat EKG showed heart rate 51 with junction rhythm and amiodarone was stopped. PAST MEDICAL HISTORY: Yxq-fpbliit-xoslbtotm diabetes mellitus, hypertension, hyperlipidemia, depression versus? bipolar disorder ( she needed some additional mood stabilization with long-standing Depakote), large hiatal hernia. MEDICATIONS: Include: 1. Lipitor 10 mg p.o. q.a.m. 2. Glipizide 10 mg p.o. q.a.m. 3. Prilosec 20 mg p.o. q.a.m. 4. Metformin 1000 mg p.o. b.i.d. 5. Lisinopril 20 mg daily. 6. Hydrochlorothiazide 25 mg daily. 7. Citalopram 20 mg daily. 8. Bupropion XL 300 mg p.o. daily. ALLERGIES: No known drug allergies. FAMILY MEDICAL HISTORY: Mother at age 83 of COPD, CAD, and CHF. Father at age 57 of heart attack. SOCIAL HISTORY: The patient is a former smoker about 30-pack years. She has significant alcohol use. Medical surrogate is son, Faustino Garrison. REVIEW OF SYSTEMS: A complete 14-point review of systems is negative except as per HPI. Denies any fevers, chills, nausea, vomiting, stomach pains. She is not the most reliable historian. PHYSICAL EXAMINATION GENERAL APPEARANCE: No acute distress. VITAL SIGNS: Temperature 96.0, heart rate initially 120, but then went up to 180, respiratory rate 18, oxygen saturation 98, initial blood pressure 195/164, the next one was 113/86. HEENT: Normocephalic, atraumatic. Pupils are equal, round, and reactive to light. Extraocular muscles intact. No scleral icterus. LUNGS: Clear to auscultation bilaterally with no wheezing, rales, or rhonchi. CARDIOVASCULAR: Upon initial evaluation, regular rate and rhythm. No murmurs, rubs, or gallops. ABDOMEN: Soft, nontender, nondistended. EXTREMITIES: Warm, well perfused. No peripheral edema. SKIN: No lesions or rashes. DIAGNOSTIC STUDIES/LAB DATA: White count 10.4, hemoglobin 9.8, hematocrit 30, platelets 265, MCV 75, INR 1.11, D-dimer 320. Sodium 138, potassium 4.3, chloride 106, carbon dioxide 24, BUN 34, creatinine 1.51, glucose 90, lactic acid 1.5, calcium 9.5, magnesium 1.1, iron panel pending. Total bili 0.3, AST 8 , ALT 12, alk phos 102. Troponin 0.01. BNP 177. TSH 3.88. Imaging: Chest x-ray formal read pending but no acute process per my read. EKGs, as described above, please see H and P. ASSESSMENT AND PLAN: Denia Garrison is a 78-year-old female with past medical history of hhj-uluswfj-yhdxheevx diabetes mellitus, hypertension, hyperlipidemia , depression, and recent diagnosis of right-sided hip pain with some mild sciatica that had been improving with steroids over the last week until mechanical fall morning of admission. On initial evaluation, she had a wide complex tachycardia into the 180s, which spontaneously resolved, but then returned and did not improve with 6, 12, 12 mg troughs of adenosine. She had evidence of some right bundle- branch block when she had been in the interim between these 2 events. Because of the broadened QRS, she was initiated on amiodarone bolus for her wide complex tachycardia. She has since converted with showing some evidence of some atrial fibrillation and then junctional rhythm and her amiodarone was stopped. She was admitted to ICU for the amiodarone bolus alone and is continued on telemetry, though poor historian she does reflect upon episodes of heart palpitations and sometimes presyncopal like event. I would recommend cardiology consult and echocardiogram in the morning. She had marked hypomagnesium levels and this may be reflected by her Dyazide diuretic, PPI, and diarrhea or combination of all three and that should be aggressively repleted and monitored. We will continue to trend the troponins which the next two were also negative. In the setting of above, I am going to hold her PPI and hydrochlorothiazide. If she comes out of this junctional rhythm, we will initiate a beta-jeremie. I have some suspicion that this is a kind of a rate dependent right bundle-branch block with aberrancy with underlying atrial fibrillation or supraventricular tachycardia. She is a full code. She can eat a heart healthy, carbohydrate consistent diet, and I will hold her citalopram and bupropion for now until we get her cardiac meds sorted out given QTc implications. Also going to hold her lisinopril given some fluctuations in her blood pressure. We will continue her atorvastatin 10 mg q.a.m. [id number]/[facility] #: [id number] [facility]
[2019-04-01] MEDS: Pantoprazole TAB * 40 MG TAB PO SCH (15:06)
[2019-04-01] MEDS ORDERED: Dronedarone TAB* 400 MG PO ONE (15:24)
[2019-04-01] MEDS: Insulin LISPRO* 1 UNITS UNIT SUBCUT SCH ×2 (16:15→21:05)
--- NOTE | 2019-04-01 17:04 | CONS ---
CC: Dr. Miki Gould; Hospitalist * CARDIOLOGY CONSULTATION: DATE OF CONSULT: 04/01/19 REASON FOR CONSULT: Wide complex tachycardia. HISTORY OF PRESENT ILLNESS: Denia Garrison is a 78-year-old woman with no past cardiac history identified. She was in her usual state of health until yesterday, 03/31/19 when she was turning and her foot slipped and she fell. She crawled to the chair, sat on the chair. She had hit her head and she had a bad headache and she has chronic sciatica and her back progressively got worse and she presented to the emergency room. She was found in a wide complex tachycardia at that time and was given Adenocard in the ER and amiodarone, then became bradycardiac and the amiodarone drip was stopped. The patient said she has had fluttering that she associates with anxiety on and off for quite a while, she thinks has escalated over the last 6 months, but she was not really ever aware that she had a rhythm and she does not recall feeling any fluttering or evidence of tachycardia yesterday when she presented to the emergency room. The patient's functional ability has been limited by her sciatica. It was revealed that her sciatica had increased recently, so she had been on steroids and was taking regular ibuprofen. She took extra ibuprofen yesterday after the fall. PAST MEDICAL HISTORY: The patient has a past medical history. based on the past records, (the patient is not a good historian in this respect) of type 2 diabetes, hypertension, dyslipidemia, depression, degenerative arthritis with sciatica, knee problems more and more, history of hiatal hernia. PAST SURGICAL HISTORY: Based on medical records includes: 1. Cesarian section 2. Hysterectomy. 3. Breast mass excision. 4. Carpal tunnel. 5. Salpingo-oophorectomy. OUTPATIENT MEDICATIONS: Included: 1. Bupropion XL. 2. Lipitor 10 mg a day. 3. Glipizide 10 mg a day. 4. Omeprazole 20 mg a day. 5. Metformin 1000 mg b.i.d. 6. Lisinopril 20 mg a day. 7. Hydrochlorothiazide 25 mg a day. 8. Celexa 20 mg a day. 9. Ibuprofen p.r.n. 10. Recent steroids as above. ALLERGIES: She is allergic to nickel but no known drug allergies. FAMILY HISTORY: Significant in that her father in his early 50s of myocardial infarction, had a history of rheumatic fever. Her mother had a history of strokes and a pacemaker. An old record report, she had a history of coronary disease. SOCIAL HISTORY: The patient smoked but has not in 30 years and she got a lot of passive smoking from her parents. She would like to drink 1 beer a year with the hotdog in the summer. 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 REVIEW OF SYSTEMS: As above with recent steroids for her sciatic pain. Additionally, she has had about 6 falls in the last 6 months. Her son and granddaughter were present. The patient and her family state there always seems to be a reason like the cat in a way, so they all sound like mechanical falls. She also describes "spells." At [facility], she was driving to her sons and felt her head was very full and she saw white, she had to pullover, this happened twice on the way there. She thought it might be because she had not eaten and she felt fine after eating. She denies orthopnea, PND, chest pain , pressure, heaviness. Positive fluttering as above. She denies any recent abdominal pain, respiratory symptoms, fevers, change in urinary habits or swelling in the legs. All other 14- point review of systems was negative. The patient's sleep cycles way off. She is up at night, sleeps in the day, admits to snoring, waking all the time. PHYSICAL EXAM: Vitals: The patient is 5 feet, weighs 210 pounds with a BMI of 41. Vitals on arrival to the emergency room 03/31/19, blood pressure 195/164, pulse was 120 to 140, oxygen saturation 98%, temperature 96. Current Vitals: Blood pressure 136/92, pulse at the time I saw her 54 but recently 102 in AFib, oxygen saturation 100% on room air and she remains afebrile. General Appearance : Short, quite overweight woman lying at 40 degrees, family in the room, appears comfortable, chatty, in no acute distress at rest, but very painful to move during exam. Psychologically, pleasant and cooperative. Neurologically, awake, alert, oriented to person, place and time. Grossly normal sensory and motor function in the upper and lower extremities on bed exam but as mentioned, pain with sitting up or rolling over and formal exam not done. Skin: Warm, dry without appreciable cyanosis or rashes. HEENT: Pupils were equal and round. Mucous membranes moist. Neck quite thick from obesity. Carotid pulses were hard to palpate but palpable and no carotid bruits. Respirations were distant but clear with good effort. No wheezes, rales or rhonchi. Coronary: Distal S1, S2, regular without murmurs or rubs. Abdomen: Quite overweight. No epigastric discomfort. Normal bowel sounds. No appreciable hepatomegaly but difficult exam. Femoral pulses without bruits. Lower extremities are free of edema, but distal pulses hard to find. DIAGNOSTIC STUDIES/LAB DATA: 12-lead ECGs and rhythm strips: EKG on arrival at 8 p.m. shows a regular wide complex tachycardia at a 150 beats a minute. Rhythm strips concur with this with a right bundle branch block morphology. 12-lead ECG 03/31/19 at 8:18 p.m. shows normal sinus rhythm, 58 beats a minute. QRS axis of 0, normal AV conduction times and a right bundle branch block. ST segments unremarkable. 12-lead ECG 03/31/19 at midnight consistent with atrial fibrillation, rate of 165 beats a minute with a right bundle branch block, upsloping ST depressions in the lateral leads. 12-lead ECG this morning at 4 a.m. shows a junctional rhythm at 51 beats a minute, QRS axis of 0, right bundle branch block, some nonspecific ST changes. Labs: White count 10.4, hematocrit 30, mean cell volume 75. INR 1.1. D-dimer 320. PTT 33. Sodium 137, potassium 4.2, chloride 105, bicarb 25, BUN 40, creatinine 1.64. Glucose 160, previously 280. Lactic acid on arrival 1.5. BNP 177. Troponin #1 is 0.02, troponin #2 is 0.02. TSH 3.88. Transaminases normal. Ferritin level low 5.0, transferrin 334. TIBC elevated at 468, iron level low at 24, magnesium 1.1, calcium 9.5. Echocardiogram done today showed some subtle septal dyssynchrony. Ejection fraction of 45% to 50%, evidence of elevated left ventricular end-diastolic pressure with left atrial enlargement. She had mild mitral insufficiency, trace -to- mild tricuspid insufficiency and PA pressure mildly elevated to 38 mmHg. ASSESSMENT AND PLAN: In summary, Denia Garrison is a 78-year-old woman who presented to the emergency room after a fall where she hit her head due to pain , both headache and sciatic pain, and was found seemingly incidentally in a wide complex tachycardia. This was consistent with atrial flutter with 2:1 block and a right bundle branch block. Later, she appears to be in atrial fibrillation as it was irregularly irregular with the ventricular rate of 165 beats a minute. With amiodarone, she developed junctional bradycardia as opposed to sinus bradycardia. Denia has paroxysmal atrial fibrillation with tachybrady syndrome. Denia does not have ventricular tachycardia. Denia has atherosclerotic risks but normal troponins. No evidence of an ischemic presentation. The patient has had frequent falls over the last 6 months that she attributes to mechanical issues, that it is concerning for her rhythm if dysrhythmias could possibly be contributing. Her "spells" could be hypoglycemic episodes that could also be dysrhythmias. For the paroxysmal atrial fibrillation, I recommend anticoagulation if considered safe with her recent fall hitting her head with headaches and with her iron deficiency anemia. Based on verbal communication with the hospitalist who reviewed her chart, she has had past workups with Dr. 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 We are going to guaiac her stools now, CT her head and then make a decision regarding anticoagulation. If she turns out not be a candidate for anticoagulation or a poor candidate, in the future we could consider her for an occluder device. I suspect she has been going in and out of atrial fibrillation for years where she is almost asymptomatic. In terms of antiarrhythmics, ideally we would get her on an antiarrhythmic or in the safest, in the setting of a renal insufficiency it would Multaq but this has low potency and could still make her bradycardiac as the amiodarone did. She is not a good candidate for sotalol due to her renal insufficiency or Tikosyn and with her ejection fraction not being perfect and atherosclerotic risk, I do not consider a good candidate for flecainide or procainamide. She might do well on lower dose amiodarone. For now, we can watch her as the amiodarone wears off but consider Multaq. Future outpatient options could include electrophysiology evaluation to see if she is a candidate for flutter ablation which often times will lead to lower incidence of atrial fibrillation. Short term, I think the most important thing is to make the decision about anticoagulation to lower her stroke risk. Her atrial fibrillation risks include age, recent use of steroids, and nonsteroidals which can raise blood pressure. I think we should get overnight oximeters here and an outpatient formal sleep study, I strongly suspect she has obstructive sleep apnea and the diagnosis and management of this will be integral treating her paroxysmal atrial fibrillation. For the patient's iron deficiency anemia, updated evaluation and management will be deferred to the hospitalist and her outpatient physician team. For her blood pressure, it was high on admission but in the setting of anxiety, currently is improved, although diastolic pressures are high. It would be ideal to get medications other than nonsteroidals for her in the setting of hypertension, atrial fibrillation, and renal insufficiency, but this could be tough. Outpatient, she was on lisinopril. I will defer to the hospitalist and outpatient physicians and renal team to determine if that is still of benefit with her diabetes, it may be reasonable to continue but consider adding a dihydropyridine such as amlodipine or Procardia as an additional non-rate lowering antihypertensive. For her diabetic management, I defer to the hospitalist and her primary care team. Additional considerations can be made pending her response to the above inpatient measures. It should be noted the patient very much wants to leave as soon as possible to take care of her cat and make her hair appointment. [id number]/[facility] #: [id number] MEE
[2019-04-01] MEDS: Citalopram TAB* 20 MG PO SCH (17:39)
[2019-04-01] MEDS: Apixaban* 5 MG TAB PO SCH (21:05)
[2019-04-01] MEDS: Lidocaine Patch REMOVE* 1 NOTE MISC SCH (21:06)
[2019-04-02] MEDS: Divalproex ER TAB(*) 250 MG PO SCH ×2 (00:12→21:05)
[2019-04-02] MEDS ORDERED: traMADol TAB* 50 MG PO ONE ×2 (00:26→23:21)
[2019-04-02 06:27] LABS: Hematocrit 29 % (35-47); Hemoglobin 9.3 g/dL (12.0-16.0); Mean Corpuscular HGB Conc 32 g/dL (31-36); Mean Corpuscular Hemoglobin 24 pg (27-31); Mean Corpuscular Volume 75 fL (80-97); Mean Platelet Volume 8.6 fL (7.4-10.4); Platelet Count 213 10^3/uL (150-450); Red Blood Count 3.81 10^6 /uL (3.70-4.87); Red Cell Distribution Width 16 % (10-15); White Blood Count 6.3 10^3/uL (3.5-10.8)
[2019-04-02 06:45] LABS: Magnesium 1.8 mg/dL (1.9-2.7)
[2019-04-02] MEDS: Acetaminophen TAB* 325 MG PO PRN ×3 (07:31→21:12)
[2019-04-02] MEDS: glipiZIDE TAB* 5 MG PO SCH (09:00)
[2019-04-02] MEDS: Atorvastatin* 10 MG TAB PO SCH (09:01)
[2019-04-02] MEDS: Apixaban* 5 MG TAB PO SCH (09:01)
[2019-04-02] MEDS: Pantoprazole TAB * 40 MG TAB PO SCH (09:01)
[2019-04-02] MEDS: BuPROPion XL* 300 MG TAB.XL PO SCH (09:01)
[2019-04-02] MEDS: Ferrous Gluconate TAB* 324 MG TAB PO SCH (09:01)
[2019-04-02] MEDS: Insulin LISPRO* 1 UNITS UNIT SUBCUT SCH ×4 (09:01→21:06)
[2019-04-02] MEDS: Lidocaine PATCH 5%* 1 PATCH TRANSDERM SCH (09:05)
--- NOTE | 2019-04-02 09:17 | PN ---
Subjective Date of Service: 04/02/19 - tachybrady syndrome Interval History: Patient continues to go in afib/flutter HR 120-130's with c/o heart racing. At times she is in sinus bradycardia rate 45-55. She denies dizziness, syncope. Does report sensation of heart racing when she is in AF. She states 2-3 weeks ago while sitting in her car she almost passed out. She is aware that PPM is indicated for SSS. I informed her that she could have it implanted this admission so we could initiate Multaq therapy/bblocker therapy or she could come back and have PPM implanted. She desires to have it implanted this admit. Medications Active Medications: Acetaminophen (Tylenol Tab*) 650 mg PO Q6H PRN PRN Reason: PAIN - MILD Last Admin: 04/02/19 07:31 Dose: 650 mg Atorvastatin Calcium (Lipitor*) 10 mg PO QAM [facility] Last Admin: 04/02/19 09:01 Dose: 10 mg Bupropion HCl (Bupropion Xl*) 300 mg PO DAILY [facility] Last Admin: 04/02/19 09:01 Dose: 300 mg Citalopram Hydrobromide (Celexa Tab*) 20 mg PO QPM [facility] Last Admin: 04/01/19 17:39 Dose: 20 mg Dextrose (D50w Syringe 50 Ml*) 12.5 gm IV PUSH .FOR FS < 60 - SS PRN PRN Reason: FS < 60 Divalproex Sodium (Depakote Er Tab(*)) 250 mg PO BEDTIME [facility] Last Admin: 04/02/19 00:12 Dose: 250 mg Enoxaparin Sodium (Lovenox(*)) 95 mg SUBCUT Q12H [facility] Stop: 04/02/19 22:01 Ferrous Gluconate (Fergon Tab*) 324 mg PO DAILY [facility] Last Admin: 04/02/19 09:01 Dose: 324 mg Glipizide (Glucotrol Tab*) 10 mg PO QAM [facility] Last Admin: 04/02/19 09:00 Dose: 10 mg Cefazolin Sodium/Dextrose (Kefzol 2 Gm Premix In Ors(*)) 2 gm in 50 mls @ 100 mls/hr IVPB ONCE ONE Stop: 04/03/19 07:29 Sodium Chloride (Ns 0.9% 1000 Ml) 1,000 mls @ 75 mls/hr IV PER RATE [facility] Insulin Human Lispro (Humalog*) 0 units SUBCUT ACHS [facility]; Protocol Last Admin: 04/02/19 09:01 Dose: 3 units Lidocaine (Lidoderm 5% Patch*) 1 patch TRANSDERM DAILY [facility] Last Admin: 04/02/19 09:05 Dose: 1 patch Pantoprazole Sodium (Protonix Tab*) 40 mg PO DAILY [facility] Last Admin: 04/02/19 09:01 Dose: 40 mg Pharmacy Profile Note (Lidocaine Patch Remove*) 1 note N/A 2100 [facility] Last Admin: 04/01/19 21:06 Dose: 1 note Objective Vital Signs: Temp Pulse Resp BP Pulse Ox 97.2 F 128 16 117/78 98 04/02/19 00:00 04/02/19 07:00 04/02/19 07:00 04/02/19 07:00 04/02/19 07:00 Oxygen Devices in Use Now: None Appearance: sitting upright in bed, NAD, obese pleasant 78 year old female Eyes: No Scleral Icterus, PERRLA Ears/Nose/Mouth/Throat: NL Teeth, Lips, Gums, Clear Oropharnyx, Mucous Membranes Moist Neck: NL Appearance and Movements; NL JVP, Trachea Midline, No Thyroid Enlargement, Masses, - - uncertain JVD Respiratory: Symmetrical Chest Expansion and Respiratory Effort, Clear to Auscultation Cardiovascular: RRR, No Edema Extremities: No Edema Skin: No Rash or Ulcers Neurological: Alert and Oriented x 3 Lines/Tubes/Other Access: Clean, Dry and Intact Peripheral IV Laboratory Results: 04/02/19 06:02 04/01/19 05:34 INR (Anticoag Therapy) 1.11 (0.82-1.09) H 03/31/19 20:42 APTT 33.0 seconds (26.0-38.0) 03/31/19 20:42 Total Bilirubin 0.30 mg/dL (0.2-1.0) 03/31/19 20:42 AST 8 U/L (13-39) L 03/31/19 20:42 ALT 12 U/L (7-52) 03/31/19 20:42 Alkaline Phosphatase 102 U/L (34-104) 03/31/19 20:42 B-Natriuretic Peptide 177 pg/mL (<=100) H 03/31/19 20:42 Total Protein 7.1 g/dL (6.4-8.9) 03/31/19 20:42 Albumin 4.1 g/dL (3.2-5.2) 03/31/19 20:42 Globulin 3.0 g/dL (2-4) 03/31/19 20:42 Albumin/Globulin Ratio 1.4 (1-3) 03/31/19 20:42 TSH 3.88 mcIU/mL (0.34-5.60) 03/31/19 20:42 03/31/19 03/31/19 04/01/19 20:42 23:30 02:30 Troponin I 0.01 0.02 0.02 Laboratory Results - last 24 hr 04/01/19 04/01/19 04/01/19 11:10 16:14 20:45 WBC RBC Hgb Hct MCV MCH MCHC RDW Plt Count MPV POC Glucose (mg/dL) 144 H 246 H 236 H Magnesium 04/02/19 04/02/19 04/02/19 06:02 06:02 08:31 WBC 6.3 RBC 3.81 Hgb 9.3 L Hct 29 L MCV 75 L MCH 24 L MCHC 32 RDW 16 H Plt Count 213 MPV 8.6 POC Glucose (mg/dL) 184 H Magnesium 1.8 L Diagnostic Imaging: fair. The study was technically limited due to body habitus. Intravenous Definity 3 ml was administered to enhance imaging. Complete 2D, spectral Doppler, and color flow Doppler. Location: ICU Patient status: Observation. Patient room number: ICU 2. Rhythm: Sinus bradycardia to Atrial fibrillation during the exam. Findings Left ventricle: The cavity size is mildly reduced. Wall thickness is mildly increased. Systolic function is mildly reduced. The estimated ejection fraction is 45-50%. There are no regional wall motion abnormalities. Left ventricular diastolic function parameters are indeterminate. Doppler parameters are consistent with elevated ventricular end-diastolic filling pressure. Right ventricle: The cavity size is normal. Systolic function is mildly reduced. [place] relatively hypokinetic. Systolic pressure is mildly increased. Left atrium: The atrium is moderately to severely dilated. Right atrium: The atrium is mildly dilated. Mitral valve: The leaflets are mildly thickened. There is no evidence of stenosis. There is mild regurgitation. Aortic valve: The leaflets are mildly thickened. Cusp separation is normal. There is no evidence of stenosis. There is no significant regurgitation. Tricuspid valve: Not well visualized. There is trace to mild regurgitation. Pulmonic valve: Not well visualized. There is trace to mild regurgitation. Aorta: Aortic root: The aortic root is not dilated. Ascending aorta: The ascending aorta is not dilated. Aortic arch: The aortic arch is not visualized. Pericardium: There is no significant pericardial effusion. Pulmonary arteries: Not well visualized. Systolic pressure is mildly increased, estimated to be 38 mm Hg. Systemic veins: Inferior vena cava: Not well visualized. Measurements Left ventricle Value Ref Right atrium Value Ref DILSHAD, LAX (L) 3.6 cm 3.8 - 5.2 ML dim, ES, A4C 4.3 cm 2.6 - 4.4 ESD, LAX 2.9 cm 2.2 - 3.5 SI dim, ES, A4C (H) 5.7 cm 3.4 - 5.3 This report is only to be considered final once signed by the Provider(s) as displayed in the "<Electronically Signed by >" field (s). Absence of a signature indicates the report is in a draft status and still needs to be finalized. In the event this document was created by someone other than the signing Provider, the individual initiating the document will be listed in the "Entered by:" or "Dictated by:" carey. Patient Name: MADELINE ALLISON Medical Record#: [id number] Ordering Physician: Bailey Stout NP Acct.#: [id number] : 1940 Age: 78 Sex: F Location: [facility] Exam Date: 04/01/19 1202 ADM Status: ADM Carmela Order Information: CT BRAIN WO Accession Number: [id number] CPT: 21887 Indication: Fall, head injury. CT of the brain performed without IV contrast. Ventricular structures are midline. No midline shift is noted. The extraction spaces are unremarkable. There is no evidence of intracranial mass or hemorrhage. No other high or low density lesions are identified. Mastoid air cells and paranasal sinuses are unremarkable. IMPRESSION: No intracranial mass or hemorrhage is noted. <Electronically signed by Catina Mendieta MD in OV> 04/01/191314 Dictated By: Catina Mendieta MD Dictated Date/Time: 04/01/191313 Transcribed Date/Time: 04/01/191313 Copy to: CC:Bailey Stout NP; Harman Lopez MD; Miki Gould MD; Sara Velasquez MD Imaging [facility] [address] [address] ph ([phone]) ph ([phone]) ph ([phone]) This report is only to be considered final once signed by the Provider(s) as displayed in the "<Electronically Signed by >" field (s). Absence of a signature indicates the report is in a draft status and still needs to be finalized. In the event this document was created by someone other than the signing Provider, the individual initiating the document will be listed in the "Entered by:" or "Dictated by:" carey. 1 of 1 EKG Data: Telemetry reviewed; Afib/flutter rate 120-130's, periods of sinus bradycardia rate 45-50. no significant pauses noted. ECG 04/01/2019; Junctional bradycardia rate 51, RBBB. Assessment/Plan #1 Newly diagnosed PAF/AFL with RVR. Echo 04/01/2019 revealed LVEF 45-50 % with moderate to severe LAD dilatation. She reports sensation of heart racing now that she is aware of AF. Chads Vasc 6( age, gender, h/o HTN, h/o DM and LV dysfunction). On Eliquis 5mg Po BID last dose 04/01/2019 at 2200. Will hold Eliquis and RX Lovenox 95mg Sub Q BID last dose this evening in preparation of PPM implant 04/03/2019. TFTs normal. Overnight oximetry did not show significant hypoxia. Will address initiating Multaq +/- bblocker post ppm implant. 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 NO evidence of RWMA. Troponin normal. May benefit from eventual stress test. TFTs normal. #3 SSS; periods of tachybrady noted on telemetry. She reports episodes of near syncope at home several weeks ago, but recent falls appears to be mechanical in nature. Patient desires PPM to be implanted prior to discharge this stay. I did inform her that she was stable enough to come back another time but again she desires it to be implanted now rather than re presenting to hospital. NPO after midnight. Pre PPM implant orders placed. Last dose of Lovenox is tonight at 2200. Risk/indication/ benefit of procedure reviewed with patient. Consent to be obtained by Dr. Nikos Loving. #4 h/o Sciatica with ongoing back pain and recent mechanical fall. Differ to primary team. #5 h/o SAVANNA; Differ to primary team. 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 #6 Disposition pending course. Will d/w Dr. Loving. Attending: Darren Loving
--- NOTE | 2019-04-02 10:00 | PN ---
Date of Service: 04/02/19 Critical Care Services: Had an uneventful evening but continues with alternating periods of tachycardia (AF) and bradycardia, which are mostly asymptomatic while patient in bed. Permanent pacer scheduled for tomorrow. Current anticoag is enoxaparin. Vital Signs: Temp Pulse Resp BP SpO2 FiO2 97.2 F 65 22 125/48 100 Physical Exam: Gen:Alert and appears comfortable. Lungs: Clear Cardiac: No murmurs Abdomen: Not distended Extremities: No cyanosis or edema Fluid Balance (Past 24 Hours): 04/01/19 06:59 Intake Total 220 Output Total 200 Balance 20 Weight 210 lb 5.136 oz Intake: IV Fluids 100 Medicated IV 120 CC - Amiodarone 120 Oral 0 Output: Urine 200 Other: Estimated Void Date of Last Bowel Movement # Bowel Movements Estimated Stool Amount # Voids Labs: 04/01/19 04/01/19 04/01/19 11:10 16:14 20:45 WBC RBC Hgb Hct MCV MCH MCHC RDW Plt Count MPV POC Glucose (mg/dL) 144 H 246 H 236 H Magnesium 04/02/19 04/02/19 04/02/19 06:02 06:02 08:31 WBC 6.3 RBC 3.81 Hgb 9.3 L Hct 29 L MCV 75 L MCH 24 L MCHC 32 RDW 16 H Plt Count 213 MPV 8.6 POC Glucose (mg/dL) 184 H Magnesium 1.8 L Studies: Stool hematest - negative Nutrition: Oral diet - intake good. Impression: Clinically stable while awaiting pacemaker. Plan: 1. Infuse magnesium to correct hypomagnesemia. 2. Anticoagulate with enoxaparin pending pacer (CrCL around 30 mL/min). 3. Transfer to telemetry. Critical Care Time: 30 minutes
[2019-04-02] MEDS ORDERED: Amiodarone IV VIAL** 50 MG/ML 3 ML (150 MG) VIAL ONE ×2 (10:26→10:27)
[2019-04-02] MEDS ORDERED: Magnesium Sulfate 2 GM IV* 2 GM/50 ML BAG IVPB ONE (10:44)
[2019-04-02] MEDS: Enoxaparin(*) 100 MG/ML SYR SUBCUT SCH ×2 (10:51→21:06)
[2019-04-02 13:02] LABS: BUN/Creatinine Ratio 24.3 (8-20); Calcium 8.7 mg/dL (8.6-10.3); EGFR African American 41.5 (>60); EGFR Non-African American 34.3 (>60)
[2019-04-02] MEDS: Citalopram TAB* 20 MG PO SCH (17:41)
[2019-04-02] MEDS: Lidocaine Patch REMOVE* 1 NOTE MISC SCH (21:06)
[2019-04-03] MEDS ORDERED: Metoprolol Tartrate IV* 1 MG/ML 5 ML VIAL IV ONE ×2 (00:27→01:04)
[2019-04-03] MEDS ORDERED: Dronedarone TAB* 400 MG PO ONE (02:15)
[2019-04-03] MEDS ORDERED: NS 0.9% 1000 ML** 1,000 ML IV SCH (06:00)
[2019-04-03 06:29] LABS: Calcium 8.5 mg/dL (8.6-10.3); Potassium 4.6 mmol/L (3.5-5.0)
[2019-04-03 06:35] LABS: BUN/Creatinine Ratio 21.1 (8-20); EGFR African American 41.8 (>60); EGFR Non-African American 34.6 (>60)
[2019-04-03] MEDS ORDERED: ceFAZolin 2 GM PREMIX in ORs 2 GM/50 ML BAG IVPB ONE (07:00)
[2019-04-03] MEDS ORDERED: ceFAZolin 2 GM in NS 100 ml - ONCE (Pharmacy Admix) IVPB ONE (07:00)
[2019-04-03] MEDS ORDERED: Diazepam TAB(*) 5 MG PO ONE (08:02)
[2019-04-03] MEDS ORDERED: ceFAZolin 1 GM/10 ML flush(*) SYRINGE for pocket flush (cardiology) FLUSH ONE (08:02)
[2019-04-03] MEDS ORDERED: ceFAZolin VIAL 1 GM in NS *SYRINGE * * 10 ML ONE (09:00)
[2019-04-03] MEDS: Insulin LISPRO* 1 UNITS UNIT SUBCUT SCH ×4 (09:03→20:28)
--- NOTE | 2019-04-03 09:03 | PN ---
Subjective Date of Service: 04/03/19 Interval History: Patient evaluated shortly after returning to the floor after pacemaker placement. Patient's family telling me she is a "little more loopy than usual" due to anesthesia. Patient overall has no complaints. She tells me she does have low back pain and right hip pain, which have been ongoing since fall prior to presenting to hospital. Her family does mention she was outpatient diagnosed with disc herniation after fall in January 2019. She denies palpitations, chest pain, difficulty breathing, abd pain, nausea. Objective Active Medications: Acetaminophen (Tylenol Tab*) 650 mg PO Q6H PRN PRN Reason: PAIN - MILD Last Admin: 04/02/19 21:12 Dose: 650 mg Atorvastatin Calcium (Lipitor*) 10 mg PO QAM [facility] Last Admin: 04/02/19 09:01 Dose: 10 mg Bupropion HCl (Bupropion Xl*) 300 mg PO DAILY [facility] Last Admin: 04/02/19 09:01 Dose: 300 mg Citalopram Hydrobromide (Celexa Tab*) 20 mg PO QPM [facility] Last Admin: 04/02/19 17:41 Dose: 20 mg Dextrose (D50w Syringe 50 Ml*) 12.5 gm IV PUSH .FOR FS < 60 - SS PRN PRN Reason: FS < 60 Divalproex Sodium (Depakote Er Tab(*)) 250 mg PO BEDTIME [facility] Last Admin: 04/02/19 21:05 Dose: 250 mg Ferrous Gluconate (Fergon Tab*) 324 mg PO DAILY [facility] Last Admin: 04/02/19 09:01 Dose: 324 mg Glipizide (Glucotrol Tab*) 10 mg PO QAM [facility] Last Admin: 04/02/19 09:00 Dose: 10 mg Sodium Chloride (Ns 0.9% 1000 Ml) 1,000 mls @ 75 mls/hr IV PER RATE [facility] Cefazolin Sodium 1 gm/ Sodium (Chloride) 10 mls @ 0 mls/hr .SEE ORDER ONCE ONE Stop: 04/03/19 09:01 Insulin Human Lispro (Humalog*) 0 units SUBCUT ACHS [facility]; Protocol Last Admin: 04/02/19 21:06 Dose: Not Given Lidocaine (Lidoderm 5% Patch*) 1 patch TRANSDERM DAILY [facility] Last Admin: 04/02/19 09:05 Dose: 1 patch Pantoprazole Sodium (Protonix Tab*) 40 mg PO DAILY [facility] Last Admin: 04/02/19 09:01 Dose: 40 mg Pharmacy Profile Note (Lidocaine Patch Remove*) 1 note N/A 2100 [facility] Last Admin: 04/02/19 21:06 Dose: 1 note Vital Signs - 8 hr 04/03/19 04/03/19 04/03/19 01:16 02:07 02:17 Temperature 97.2 F Pulse Rate 112 126 Respiratory 20 17 Rate Blood Pressure 134/61 114/66 (mmHg) O2 Sat by Pulse 98 Oximetry 04/03/19 07:31 Temperature 96.9 F Pulse Rate 57 Respiratory 16 Rate Blood Pressure 101/39 (mmHg) O2 Sat by Pulse 97 Oximetry Oxygen Devices in Use Now: None Appearance: Obese, elderly white female, laying in bed, appearing comfortable and in NAD Eyes: No Scleral Icterus, - - PERRL Ears/Nose/Mouth/Throat: Mucous Membranes Moist Neck: Trachea Midline Respiratory: Symmetrical Chest Expansion and Respiratory Effort, Clear to Auscultation Cardiovascular: NL Sounds; No Murmurs; No JVD, RRR Abdominal: - - abd soft, nontender, nondistended Extremities: No Edema, No Clubbing, Cyanosis, - - MSK: minimal tenderness to palpation along spinous processes in lumbar spine; strength 2/5 with right hip flexion and 5/5 with lef hip flexion Skin: No Rash or Ulcers Neurological: Alert and Oriented x 3 Result Diagrams: 04/02/19 06:02 04/03/19 06:08 Microbiology and Other Data: Microbiology 04/01/19 15:30 Stool Occult Blood (SABRA) - Final Stool 04/01/19 02:30 Nasal Screen MRSA (PCR) - Final Nasal Mrsa Not Detected Assess/Plan/Problems-Billing Assessment: 78 yo white female with PMHx DMT2, HTN, HLD, BPD, CKD presents to the ED after a fall at home, found to be in wide complex tachycardia in the emergency department. Initially admitted to the ICU and now on the medical floor. - Patient Problems (1) Paroxysmal atrial fibrillation Current Visit: Yes Status: Acute Code(s): I48.0 - PAROXYSMAL ATRIAL FIBRILLATION SNOMED Code(s): 906681572 Comment: -presenting with symptomatic tachycardia, sxs of palpitations, and wide- appearing complex tachycardia at admission -Dr. Velasquez notes patient does not have Vtach and appears to have pAfib with tachy-carola syndrome -patient tachycardic overnight -appreciate cardiology consult, recommended starting metoprolol today -s/p pacemaker placement today, tolerated well -patient has [id number] score of 5, will start eliquis tomorrow (2) Tachy-carola syndrome Current Visit: Yes Status: Acute Code(s): I49.5 - SICK SINUS SYNDROME SNOMED Code(s): 53608387 Comment: -s/p pacemaker placement today, further mgmt above (3) Fall Current Visit: Yes Status: Acute Comment: -patient initially presented after mechanical fall at home -PT involved -patient has had residual back pain and right hip pain since this fall -no acute findings on lumbar CT or hip xray; if weakness of hip persists then an MRI inpatient vs outpatient may be needed (4) Iron deficiency anemia Current Visit: Yes Status: Acute Code(s): D50.9 - IRON DEFICIENCY ANEMIA, UNSPECIFIED SNOMED Code(s): 19365509 Comment: -continue iron supplement (5) HFrEF (heart failure with reduced ejection fraction) Current Visit: Yes Status: Acute Code(s): I50.20 - UNSPECIFIED SYSTOLIC ( CONGESTIVE) HEART FAILURE SNOMED Code(s): 557909763 Comment: -continue metoprolol -home lisinopril held at this time (6) Diabetes mellitus type 2 in obese Current Visit: Yes Status: Acute Code(s): E11.69 - TYPE 2 DIABETES MELLITUS WITH OTHER SPECIFIED COMPLICATION; E66.9 - OBESITY, UNSPECIFIED SNOMED Code(s) : 00491699 Comment: -A1c 7.4% last month -continue home glipizide and lispro SS (7) CKD (chronic kidney disease) Current Visit: Yes Status: Acute Code(s): N18.9 - CHRONIC KIDNEY DISEASE, UNSPECIFIED SNOMED Code(s): 364851664 Comment: -at baseline (8) Hypomagnesemia Current Visit: Yes Status: Acute Code(s): E83.42 - HYPOMAGNESEMIA SNOMED Code(s): 982003577 Comment: -resolved (9) Depression Current Visit: Yes Status: Acute Code(s): F32.9 - MAJOR DEPRESSIVE DISORDER , SINGLE EPISODE, UNSPECIFIED SNOMED Code(s): 83408549 Comment: -continue depakote and wellbutrin -unclear if hx of BPD or if depakote is ancillary for depression (10) DVT prophylaxis Current Visit: Yes Status: Acute Code(s): Z29.9 - ENCOUNTER FOR PROPHYLACTIC MEASURES, UNSPECIFIED SNOMED Code(s): 141257586 (11) Full code status Current Visit: Yes Status: Acute Code(s): Z78.9 - OTHER SPECIFIED HEALTH STATUS SNOMED Code(s): 107736921
[2019-04-03] MEDS ORDERED: Midazolam* 1 MG/ML 5 ML VIAL (5 MG) ONE (09:54)
[2019-04-03] MEDS ORDERED: fentaNYL* 50 MCG/ML 2 ML VIAL (100 MCG VIAL) ONE (09:54)
[2019-04-03] MEDS ORDERED: Flumazenil* 0.1 MG/ML 5 ML MDV ONE (09:54)
[2019-04-03] MEDS ORDERED: Lidocaine 1% INJ* 10 MG/ML 30 ML SDV ONE (09:54)
[2019-04-03] MEDS ORDERED: Naloxone* 0.4 MG/ML 1 ML VIAL ONE (09:54)
[2019-04-03] MEDS ORDERED: Metoprolol Tartrate IV* 1 MG/ML 5 ML VIAL ONE (11:07)
[2019-04-03] MEDS: Pantoprazole TAB * 40 MG TAB PO SCH (13:22)
[2019-04-03] MEDS: glipiZIDE TAB* 5 MG PO SCH (13:22)
[2019-04-03] MEDS: BuPROPion XL* 300 MG TAB.XL PO SCH (13:22)
[2019-04-03] MEDS: Atorvastatin* 10 MG TAB PO SCH (13:22)
[2019-04-03] MEDS: Metoprolol Succinate XL TAB* 50 MG PO SCH ×2 (13:22→20:29)
[2019-04-03] MEDS: Ferrous Gluconate TAB* 324 MG TAB PO SCH (13:23)
[2019-04-03] MEDS: Lidocaine PATCH 5%* 1 PATCH TRANSDERM SCH (13:23)
[2019-04-03] MEDS ORDERED: Ketorolac INJ* 30 MG/ML 1 ML VIAL IV PUSH ONE (13:39)
[2019-04-03] MEDS: Citalopram TAB* 20 MG PO SCH (18:02)
[2019-04-03] MEDS: ceFAZolin VIAL(*) 1 GM in NS 0.9% 50 ML* 50 ML IVPB SCH (20:28)
[2019-04-03] MEDS: Lidocaine Patch REMOVE* 1 NOTE MISC SCH (20:32)
[2019-04-03] MEDS: Divalproex ER TAB(*) 250 MG PO SCH (21:08)
[2019-04-03] MEDS: Acetaminophen TAB* 325 MG PO PRN (21:08)
--- NOTE | 2019-04-03 22:49 | OP ---
CC: Dr. Sara Velasquez * DATE OF OPERATION: 04/03/19 - ROOM #444 DATE OF : 44 SURGEON: Darren Loving MD ANESTHESIA: Local anesthesia with conscious sedation. PRE-OP DIAGNOSIS: Tachybrady syndrome. POST-OP DIAGNOSIS: Tachybrady syndrome. OPERATIVE PROCEDURE: Dual-chamber pacemaker implantation. ESTIMATED BLOOD LOSS: Nil. COMPLICATIONS: None. INDICATIONS: The patient is a 78-year-old female who came into the hospital because of back pain, who was noted to be in atrial fibrillation. She was given medications to slow down of her heart rate. Ultimately, the patient broke to normal sinus rhythm with a heart rate of 40 beats per minute and then was having runs of AFib at 130 beats per minute. The patient was diagnosed with tachybrady syndrome, permanent pacemaker was recommended for maximization of medical therapy. DESCRIPTION OF PROCEDURE: The patient was brought to the procedure room in a fasting state. Informed consent had been obtained prior to the procedure. All labs were reviewed. The patient was placed supine on the procedure table. Her left pectoral area was prepped and draped in the usual fashion. A 1% Lidocaine was used for local anesthesia. The axillary vein was entered via Seldinger technique and a guidewire was placed. The second guidewire was placed with the same technique. A 4-cm incision was made in the pectoral area. Blunt dissection was carried down to the pectoral fascia. A pocket was fashioned for the pacemaker. Over the first guidewire, a 7-Bhutanese sheath introducer was placed through which a right ventricular lead was advanced to the right ventricular septum. The right ventricular lead is a Medtronic, model 5076, serial #[id number], it had a R-wave sensitivity of 8.6, impedance 836 ohms, threshold 0.5 volts at 0.4 milliseconds. The ventricular lead was sutured to the pectoral fascia. A 7-[place]ut[place] sheath introducer was placed over the second guidewire and an atrial lead was advanced to the high right atrium. The atrial lead is a Medtronic, model 5076, serial #[id number], it had a P-wave sensitivity of 1.9, impedance 494 ohms, threshold could not be tested as the patient was in atrial flutter. The atrial lead was sutured to the pectoral fascia. The pocket was flushed and a generator was attached appropriately to the atrioventricular lead. The generator is a [employer]rape, model W1DR01, serial #[id number]. The device was placed in the pocket. The surgical incision was closed in 3 layers. The patient was returned to holding area in stable condition. [id number]/[facility] #: [id number] MTDD
[2019-04-04] MEDS: ceFAZolin VIAL(*) 1 GM in NS 0.9% 50 ML* 50 ML IVPB SCH ×2 (03:47→12:18)
[2019-04-04 06:37] LABS: ABS Basophils 0.1 10^3/ul (0-0.2); ABS Eosinophils 0.2 10^3/ul (0-0.6); ABS Lymphocytes 1.6 10^3/ul (1.0-4.8); ABS Monocytes 0.8 10^3/ul (0-0.8); ABS Neutrophils 4.8 10^3/ul (1.5-7.7); Eosinophil % 2.1 %; Hematocrit 28 % (35-47); Hemoglobin 9.1 g/dL (12.0-16.0); Lymphocyte % 21.8 %; Mean Corpuscular HGB Conc 32 g/dL (31-36); Mean Corpuscular Hemoglobin 24 pg (27-31); Mean Corpuscular Volume 75 fL (80-97); Mean Platelet Volume 8.5 fL (7.4-10.4); Platelet Count 211 10^3/uL (150-450); Red Blood Count 3.77 10^6 /uL (3.70-4.87); Red Cell Distribution Width 17 % (10-15); White Blood Count 7.5 10^3/uL (3.5-10.8)
[2019-04-04] MEDS: Insulin LISPRO* 1 UNITS UNIT SUBCUT SCH ×2 (08:09→12:17)
[2019-04-04] MEDS: BuPROPion XL* 300 MG TAB.XL PO SCH (08:09)
[2019-04-04] MEDS: Pantoprazole TAB * 40 MG TAB PO SCH (08:10)
[2019-04-04] MEDS: Ferrous Gluconate TAB* 324 MG TAB PO SCH (08:10)
[2019-04-04] MEDS: glipiZIDE TAB* 5 MG PO SCH (08:10)
[2019-04-04] MEDS: Atorvastatin* 10 MG TAB PO SCH (08:10)
[2019-04-04] MEDS: Metoprolol Succinate XL TAB* 50 MG PO SCH (08:10)
[2019-04-04] MEDS: Lidocaine PATCH 5%* 1 PATCH TRANSDERM SCH (08:10)
[2019-04-04] MEDS: Acetaminophen TAB* 325 MG PO PRN (08:10)
[2019-04-04] MEDS ORDERED: Apixaban* 5 MG TAB PO SCH (09:00)
--- NOTE | 2019-04-04 11:41 | PN ---
<AnkitKarlie - Last Filed: 04/04/19 11:36> Subjective Date of Service: 04/04/19 - SSS,HFmrEF, Junctional rhythm Interval History: No events last night, patient sleeping upon entering the room with friends at her bedside. She is A+O x3, appears in NAD. Denies chest pain, sob, dizziness, palpitations at this time. She has been up and ambulating with no difficulty. Medications Active Medications: Acetaminophen (Tylenol Tab*) 650 mg PO Q6H PRN PRN Reason: PAIN - MILD Last Admin: 04/04/19 08:10 Dose: 650 mg Apixaban (Eliquis*) 5 mg PO BID [facility] Last Admin: 04/04/19 08:09 Dose: 5 mg Atorvastatin Calcium (Lipitor*) 10 mg PO QAM [facility] Last Admin: 04/04/19 08:10 Dose: 10 mg Bupropion HCl (Bupropion Xl*) 300 mg PO DAILY [facility] Last Admin: 04/04/19 08:09 Dose: 300 mg Cephalexin HCl (Keflex Cap*) 250 mg PO TID [facility] Stop: 04/07/19 20:59 Citalopram Hydrobromide (Celexa Tab*) 20 mg PO QPM [facility] Last Admin: 04/03/19 18:02 Dose: 20 mg Dextrose (D50w Syringe 50 Ml*) 12.5 gm IV PUSH .FOR FS < 60 - SS PRN PRN Reason: FS < 60 Divalproex Sodium (Depakote Er Tab(*)) 250 mg PO BEDTIME [facility] Last Admin: 04/03/19 21:08 Dose: 250 mg Dronedarone (Multaq Tab*) 400 mg PO BID [facility] Ferrous Gluconate (Fergon Tab*) 324 mg PO DAILY [facility] Last Admin: 04/04/19 08:10 Dose: 324 mg Glipizide (Glucotrol Tab*) 10 mg PO QAM [facility] Last Admin: 04/04/19 08:10 Dose: 10 mg Cefazolin Sodium 1 gm/ Sodium (Chloride) 50 mls @ 200 mls/hr IVPB Q8H [facility] Stop: 04/04/19 12:14 Last Admin: 04/04/19 03:47 Dose: 200 mls/hr Insulin Human Lispro (Humalog*) 0 units SUBCUT ACHS [facility]; Protocol Last Admin: 04/04/19 08:09 Dose: 3 units Lidocaine (Lidoderm 5% Patch*) 1 patch TRANSDERM DAILY [facility] Last Admin: 04/04/19 08:10 Dose: Not Given Metoprolol Succinate (Toprol Xl Tab*) 50 mg PO BID [facility] Last Admin: 04/04/19 08:10 Dose: 50 mg Pantoprazole Sodium (Protonix Tab*) 40 mg PO DAILY [facility] Last Admin: 04/04/19 08:10 Dose: 40 mg Pharmacy Profile Note (Lidocaine Patch Remove*) 1 note N/A 2100 [facility] Last Admin: 04/03/19 20:32 Dose: Not Given Objective Vital Signs: Temp Pulse Resp BP Pulse Ox 97.4 F 60 16 121/56 99 04/04/19 07:14 04/04/19 07:14 04/04/19 08:00 04/04/19 07:14 04/04/19 07:14 Oxygen Devices in Use Now: None Appearance: sitting upright in bed, NAD, obese pleasant 78 year old female Eyes: No Scleral Icterus, PERRLA Ears/Nose/Mouth/Throat: NL Teeth, Lips, Gums, Clear Oropharnyx, Mucous Membranes Moist Neck: NL Appearance and Movements; NL JVP, Trachea Midline, No Thyroid Enlargement, Masses, - - uncertain JVD Respiratory: Symmetrical Chest Expansion and Respiratory Effort, Clear to Auscultation Cardiovascular: RRR, No Edema Extremities: No Edema Skin: No Rash or Ulcers, - - left anterior device site examined, no pocket hematoma. scant dried blood noted on dressing, non tender to palpation. no erythema. Neurological: Alert and Oriented x 3 Lines/Tubes/Other Access: Clean, Dry and Intact Peripheral IV Laboratory Results: 04/04/19 06:27 04/03/19 06:08 INR (Anticoag Therapy) 1.11 (0.82-1.09) H 03/31/19 20:42 APTT 33.0 seconds (26.0-38.0) 03/31/19 20:42 Total Bilirubin 0.30 mg/dL (0.2-1.0) 03/31/19 20:42 AST 8 U/L (13-39) L 03/31/19 20:42 ALT 12 U/L (7-52) 03/31/19 20:42 Alkaline Phosphatase 102 U/L (34-104) 03/31/19 20:42 B-Natriuretic Peptide 177 pg/mL (<=100) H 03/31/19 20:42 Total Protein 7.1 g/dL (6.4-8.9) 03/31/19 20:42 Albumin 4.1 g/dL (3.2-5.2) 03/31/19 20:42 Globulin 3.0 g/dL (2-4) 03/31/19 20:42 Albumin/Globulin Ratio 1.4 (1-3) 03/31/19 20:42 TSH 3.88 mcIU/mL (0.34-5.60) 03/31/19 20:42 03/31/19 03/31/19 04/01/19 20:42 23:30 02:30 Troponin I 0.01 0.02 0.02 Laboratory Results - last 24 hr 04/03/19 04/03/19 04/03/19 12:12 16:51 20:27 WBC RBC Hgb Hct MCV MCH MCHC RDW Plt Count MPV Neut % (Auto) Lymph % (Auto) [place] % (Auto) Eos % (Auto) Baso % (Auto) Absolute Neuts (auto) Absolute Lymphs (auto) Absolute Monos (auto) Absolute Eos (auto) Absolute Basos (auto) Absolute Nucleated RBC Nucleated RBC % POC Glucose (mg/dL) 151 H 142 H 98 04/04/19 04/04/19 06:27 07:45 WBC 7.5 RBC 3.77 Hgb 9.1 L Hct 28 L MCV 75 L MCH 24 L MCHC 32 RDW 17 H Plt Count 211 MPV 8.5 Neut % (Auto) 64.3 Lymph % (Auto) 21.8 [place] % (Auto) 10.6 Eos % (Auto) 2.1 Baso % (Auto) 1.2 Absolute Neuts (auto) 4.8 Absolute Lymphs (auto) 1.6 Absolute Monos (auto) 0.8 Absolute Eos (auto) 0.2 Absolute Basos (auto) 0.1 Absolute Nucleated RBC 0.0 Nucleated RBC % 0.0 POC Glucose (mg/dL) 162 H Diagnostic Imaging: fair. The study was technically limited due to body habitus. Intravenous Definity 3 ml was administered to enhance imaging. Complete 2D, spectral Doppler, and color flow Doppler. Location: ICU Patient status: Observation. Patient room number: ICU 2. Rhythm: Sinus bradycardia to Atrial fibrillation during the exam. Findings Left ventricle: The cavity size is mildly reduced. Wall thickness is mildly increased. Systolic function is mildly reduced. The estimated ejection fraction is 45-50%. There are no regional wall motion abnormalities. Left ventricular diastolic function parameters are indeterminate. Doppler parameters are consistent with elevated ventricular end-diastolic filling pressure. Right ventricle: The cavity size is normal. Systolic function is mildly reduced. [place] relatively hypokinetic. Systolic pressure is mildly increased. Left atrium: The atrium is moderately to severely dilated. Right atrium: The atrium is mildly dilated. Mitral valve: The leaflets are mildly thickened. There is no evidence of stenosis. There is mild regurgitation. Aortic valve: The leaflets are mildly thickened. Cusp separation is normal. There is no evidence of stenosis. There is no significant regurgitation. Tricuspid valve: Not well visualized. There is trace to mild regurgitation. Pulmonic valve: Not well visualized. There is trace to mild regurgitation. Aorta: Aortic root: The aortic root is not dilated. Ascending aorta: The ascending aorta is not dilated. Aortic arch: The aortic arch is not visualized. Pericardium: There is no significant pericardial effusion. Pulmonary arteries: Not well visualized. Systolic pressure is mildly increased, estimated to be 38 mm Hg. Systemic veins: Inferior vena cava: Not well visualized. Measurements Left ventricle Value Ref Right atrium Value Ref DILSHAD, LAX (L) 3.6 cm 3.8 - 5.2 ML dim, ES, A4C 4.3 cm 2.6 - 4.4 ESD, LAX 2.9 cm 2.2 - 3.5 SI dim, ES, A4C (H) 5.7 cm 3.4 - 5.3 This report is only to be considered final once signed by the Provider(s) as displayed in the "<Electronically Signed by >" field (s). Absence of a signature indicates the report is in a draft status and still needs to be finalized. In the event this document was created by someone other than the signing Provider, the individual initiating the document will be listed in the "Entered by:" or "Dictated by:" carey. Patient Name: MADELINE ALLISON Medical Record#: [id number] Ordering Physician: Bailey Stout NP Acct.#: [id number] : 1940 Age: 78 Sex: F Location: [facility] Exam Date: 04/01/19 1202 ADM Status: ADM Carmela Order Information: CT BRAIN WO Accession Number: [id number] CPT: 34616 Indication: Fall, head injury. CT of the brain performed without IV contrast. Ventricular structures are midline. No midline shift is noted. The extraction spaces are unremarkable. There is no evidence of intracranial mass or hemorrhage. No other high or low density lesions are identified. Mastoid air cells and paranasal sinuses are unremarkable. IMPRESSION: No intracranial mass or hemorrhage is noted. <Electronically signed by Catina Mendieta MD in [place]> 04/01/19 1315 Dictated By: Catina Mendieta MD Dictated Date/Time: 04/01/19 1314 Transcribed Date/Time: 04/01/19 1314 Copy to: CC:Bailey Stout LIGHT OIL OPERATOR; Harman Lopez MD; Miki Gould MD; Sara Velasquez MD Imaging - [facility] Imaging - [place] [facility] [address] [address] ph ([phone]) ph ([phone]) ph ([phone]) This report is only to be considered final once signed by the Provider(s) as displayed in the "<Electronically Signed by >" field (s). Absence of a signature indicates the report is in a draft status and still needs to be finalized. In the event this document was created by someone other than the signing Provider, the individual initiating the document will be listed in the "Entered by:" or "Dictated by:" carey. 1 of 1 Patient Name: MADELINE ALLISON Medical Record#: [id number] Ordering Physician: Darren Loving MD Acct.#: [id number] : 1940 Age: 78 Sex: F Location: [address] [place] [address]/TELEMETRY Exam Date: 04/04/19 08 ADM Status: ADM IN Order Information: CHEST PA & LAT 2 VWS Accession Number: [id number] CPT: 39595 HISTORY: S/P Device Implant COMPARISONS: April 03, 2019 VIEWS: 4: Frontal dual-energy and lateral views of the chest. FINDINGS: CARDIOMEDIASTINAL SILHOUETTE: The cardiomediastinal silhouette is normal. GALE: The gale are normal. PLEURA: The costophrenic angles are sharp. No pleural abnormalities are noted. LUNG PARENCHYMA: The lungs are clear. ABDOMEN: The upper abdomen is clear. There is no subphrenic gas. BONES AND SOFT TISSUES: No bone or soft tissue abnormalities are noted. OTHER: A left-sided pacemaker is noted. IMPRESSION: NO ACTIVE CARDIOPULMONARY DISEASE. <Electronically signed by Tee Taylor MD in [place]> 04/04/19810 Dictated By: Tee Taylor MD Dictated Date/Time: 04/04/19807 Transcribed Date/Time: 04/04/19807 Copy to: CC:Lupe Bermeo MD; Harman Lopez MD; Miki Gould MD; Sara Velasquez MD; Darren Loving MD Imaging - [facility] Imaging - [facility] [address] [address] ph [phone]) ph ([phone]) ([phone]) This report is only to be considered final once signed by the Provider(s) as displayed in the "<Electronically Signed by >" field (s). Absence of a signature indicates the report is in a draft status and still needs to be finalized. In the event this document was created by someone other than the signing Provider, the individual initiating the document will be listed in the "Entered by:" or "Dictated by:" carey. 1 of 1 EKG Data: Telemetry reviewed; ECG 04/04/2019; Ap/ROUSTABOUT CREW LEADER rate 86 Device check 04/04/2019 reviewed; Ap 95%, ROUSTABOUT CREW LEADER 96.5%, 2.7% AF burden ( 31 minutes total). RV pacing threshold .5V@0.4ms, Atrial lead pacing threshold 0.75 V@ 0.4ms. Assessment/Plan #1 Newly diagnosed PAF/AFL with RVR. Echo 04/01/2019 revealed LVEF 45-50 % with moderate to severe LA dilatation. She reports sensation of heart racing now that she is aware of AF. Chads Vasc 6( age, gender, h/o HTN, h/o DM and LV dysfunction). On Eliquis 5mg Po BID. TFTs normal. Overnight oximetry did not show significant hypoxia. She is on Celexa which can cause QTc prolongation it is listed as a severe interraction. Patient states she has been in Celexa for many years. I will start Multaq at 400mg PO BID however, she will need close f/ u for evaluation of QTc. I also asked that she f/u with PCP to discuss alternative medications( Celexa). Will continue bblocker therapy. 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 NO evidence of RWMA. Troponin normal. May benefit from eventual stress test. TFTs normal. #3 SSS; periods of tachybrady noted on telemetry. She reports episodes of near syncope at home several weeks ago, but recent falls appears to be mechanical in nature. she is s/p DC PPM 04/03/2019. CXR was normal, device check reviewed. pacing thresholds are appropriate. AP 95%, ROUSTABOUT CREW LEADER 96.5%. Device site examined, no pocket hematoma. to f/u next week for wound check. She will need Keflex 250mg TIDx3 days. #4 h/o Sciatica with ongoing back pain and recent mechanical fall. Differ to primary team. #5 h/o SAVANNA; Differ to primary team. 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 #6 Disposition pending course. Will d/w Dr. Velasquez. We may keep her an additional night to evaluate QTc interval after start Multaq versus arranging for close outpatient ECG will differ f/u care to Dr. Velasquez given she is on Celexa which can potentiate QTc prolongation. Keep K>4, Mag >2 Attending: Sara Velasquez <Sara Velasquez - Last Filed: 04/04/19 13:20> Medications Active Medications: Acetaminophen (Tylenol Tab*) 650 mg PO Q6H PRN PRN Reason: PAIN - MILD Last Admin: 04/04/19 08:10 Dose: 650 mg Apixaban (Eliquis*) 5 mg PO BID [facility] Last Admin: 04/04/19 08:09 Dose: 5 mg Atorvastatin Calcium (Lipitor*) 10 mg PO QAM [facility] Last Admin: 04/04/19 08:10 Dose: 10 mg Bupropion HCl (Bupropion Xl*) 300 mg PO DAILY [facility] Last Admin: 04/04/19 08:09 Dose: 300 mg Cephalexin HCl (Keflex Cap*) 250 mg PO TID [facility] Stop: 04/07/19 20:59 Citalopram Hydrobromide (Celexa Tab*) 10 mg PO QPM [facility] Dextrose (D50w Syringe 50 Ml*) 12.5 gm IV PUSH .FOR FS < 60 - SS PRN PRN Reason: FS < 60 Divalproex Sodium (Depakote Er Tab(*)) 250 mg PO BEDTIME [facility] Last Admin: 04/03/19 21:08 Dose: 250 mg Dronedarone (Multaq Tab*) 400 mg PO BID [facility] Ferrous Gluconate (Fergon Tab*) 324 mg PO TID [facility] Glipizide (Glucotrol Tab*) 10 mg PO QAM [facility] Last Admin: 04/04/19 08:10 Dose: 10 mg Insulin Human Lispro (Humalog*) 0 units SUBCUT ACHS [facility]; Protocol Last Admin: 04/04/19 12:17 Dose: 3 units Lidocaine (Lidoderm 5% Patch*) 1 patch TRANSDERM DAILY [facility] Last Admin: 04/04/19 08:10 Dose: Not Given Metoprolol Succinate (Toprol Xl Tab*) 50 mg PO BID [facility] Last Admin: 04/04/19 08:10 Dose: 50 mg Pantoprazole Sodium (Protonix Tab*) 40 mg PO DAILY [facility] Last Admin: 04/04/19 08:10 Dose: 40 mg Pharmacy Profile Note (Lidocaine Patch Remove*) 1 note N/A 2100 [facility] Last Admin: 04/03/19 20:32 Dose: Not Given Objective Vital Signs: Temp Pulse Resp BP Pulse Ox 97.0 F 60 16 101/43 100 04/04/19 12:10 04/04/19 12:10 04/04/19 12:10 04/04/19 12:10 04/04/19 12:10 Laboratory Results: 04/04/19 06:27 04/03/19 06:08 INR (Anticoag Therapy) 1.11 (0.82-1.09) H 03/31/19 20:42 APTT 33.0 seconds (26.0-38.0) 03/31/19 20:42 Total Bilirubin 0.30 mg/dL (0.2-1.0) 03/31/19 20:42 AST 8 U/L (13-39) L 03/31/19 20:42 ALT 12 U/L (7-52) 03/31/19 20:42 Alkaline Phosphatase 102 U/L (34-104) 03/31/19 20:42 B-Natriuretic Peptide 177 pg/mL (<=100) H 03/31/19 20:42 Total Protein 7.1 g/dL (6.4-8.9) 03/31/19 20:42 Albumin 4.1 g/dL (3.2-5.2) 03/31/19 20:42 Globulin 3.0 g/dL (2-4) 03/31/19 20:42 Albumin/Globulin Ratio 1.4 (1-3) 03/31/19 20:42 TSH 3.88 mcIU/mL (0.34-5.60) 03/31/19 20:42 03/31/19 03/31/19 04/01/19 20:42 23:30 02:30 Troponin I 0.01 0.02 0.02 Assessment/Plan I saw and examined the patient personally. No back pain with lido patch. C/o incisional pain. No SOB. Walking well. Agree with above, Multaq seems safest option of antiarrhythmics in setting of CKD, it is not proarrhythmic with increased QT. OK for Tyl.+codiene or percocet x 5 days PRN for incisional pain. Pt aware to avoid NSAIDs going forward as on OAC, hx microcytic anemia.
[2019-04-04 12:13] VITALS: BP 101/43
[2019-04-04] MEDS ORDERED: Ferrous Gluconate TAB* 324 MG TAB PO SCH (14:00)
[2019-04-04] MEDS ORDERED: Citalopram TAB* 10 MG PO SCH (18:00)
[2019-04-04] MEDS ORDERED: Cephalexin CAP* 250 MG PO SCH (21:00)
[2019-04-04] MEDS ORDERED: Dronedarone TAB* 400 MG PO SCH (21:00)
--- NOTE | 2019-04-04 22:18 | DS ---
CC: Dr. Gould * DISCHARGE SUMMARY: DATE OF ADMISSION: 03/31/19 DATE OF DISCHARGE: 04/04/19 ATTENDING PHYSICIAN WHILE IN THE HOSPITAL: Dr. Mishra * (dictated by GRACE Guzman) PRIMARY CARE PROVIDER: Dr. Gould. CONSULTING NETTING WEAVER WHILE IN THE HOSPITAL: Dr. Velasquez; Dr. Loving; Karlie Pham NP PRIMARY DIAGNOSES: 1. 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 2. Iron deficiency anemia. 3. Heart failure with reduced ejection fraction with EF of 45% to 50%. SECONDARY DIAGNOSES: 1. Diabetes mellitus, type 2. 2. Hypertension. 3. Hyperlipidemia. 4. Depression. 5. Chronic kidney disease. SIGNIFICANT STUDIES WHILE IN THE HOSPITAL: 1. Transthoracic echocardiogram with EF of 40% to 45%, no regional wall motion abnormalities, left atrium moderately to fairly dilated and right atrium is mildly dilated. Please see full report for further details. 2. Chest x-ray on 03/31/19, impression: No active cardiopulmonary disease. Chest x-ray on 04/03/19, no active cardiopulmonary disease. 3. CT of the brain on 04/01/19, no intracranial mass or hemorrhage is noted. 4. Right hip/pelvic x-ray on 04/03/19, impression: Osteoarthritis. No radiographic evidence for hip fracture. 5. Lumbar spine CT on 04/03/19, no lumbar spine fracture. Multilevel spondylosis resulted in severe spinal canal stenosis and severe right neural foraminal stenosis at L4-L5. 6. Pelvis CT, no fracture of the right hip or pelvis is noted. HISTORY OF PRESENT ILLNESS/HOSPITAL COURSE: Denia Garrison is a 78-year-old white female with past medical history significant for diabetes mellitus, type 2 , hypertension, hyperlipidemia, and depression, who presented to the emergency department on 03/31/19 due to a mechanical fall at home when tripping on something. The patient presented due to falling and residual hip and back pain and her primary care provider advised her to go to the emergency department. While she was in the emergency department, however, she was found to have wide complex tachycardia with heart rates in the 150s. She was admitted to the ICU initially and evaluated by Cardiology. Dr. Velasquez is the podiatry professor who initially evaluated her and found that she was not having ventricular tachycardia, but was in fact having tachy-carola syndrome in the setting of what was believed to be new onset paroxysmal atrial fibrillation. The patient was monitored on telemetry through her hospitalization and from point of cardiology consultation, it appears she developed junctional bradycardia with amiodarone. For that reason, she was ultimately taken off of amiodarone and by day of discharge, was switched to dronedarone. During her hospitalization, pacemaker was placed on 04/03/[address] Loving. The patient tolerated the procedure well, but did have some chest wall tenderness by day of discharge. She initially was taking metoprolol and by day of discharge, had excellent rate control on telemetry. Due to the patient's paroxysmal atrial fibrillation and her HEART score of 5, it is recommended that she start anticoagulation to reduce stroke risk. The patient has had falls more recently; however, she accepted this risk and was okay with anticoagulation. The patient did have history of AVMs in the past and the stool guaiac was checked in the hospital, which was negative. Dr. Loving was okay with the Eliquis being started the morning after pacemaker placement. By the time I began taking care of the patient on 04/03/19, she was still complaining of low back and hip pain and in the setting of her recent fall, I was concerned for acute fracture and lumbar spine fracture was ruled out with CT scan with findings as above. Unfortunately, the best test to rule out a hip fracture is an MRI and [employer] recommends no pacemaker for 6 weeks after pacemaker placement despite this being an MRI compatible device. Her CT showed no evidence of fracture; however, this does not entirely rule this out. Additionally, though, the patient's hip pain and low back pain were significantly improved by day of discharge and the previously observed weakness of fraction of the right hip was resolved. Her strength was 5/5 with hip flexion bilaterally. The patient's CKD was around baseline by the time of her disposition and she was started on an iron supplement for iron studies consistent with iron deficiency anemia. She overall had a fair glycemic control during her hospitalization. The patient was seen by Physical Therapy during her hospital stay and did recommend further skilled PT services. The patient did not wish to return home at discharge with VNS and visiting PT in lieu of [facility] facility. With the patient's new metoprolol, her blood pressure was found to be decreased and her home antihypertensive medications were held and she was normotensive on this regimen without these medications for several days. PHYSICAL EXAM ON DAY OF DISCHARGE: General: Obese white female, sitting in the hospital chair, appearing comfortable, in no acute distress. Eyes: PERRL. Sclerae anicteric. Neck: Trachea midline. Lungs: Clear to auscultation throughout. Cardio: Regular rate and rhythm without murmurs, rubs, or gallops. Abdomen: Nondistended. Extremities: No clubbing, cyanosis, or edema. Musculoskeletal: Strength is 5/5 bilaterally with hip flexion and knee flexion, extension. DISCHARGE PLAN: DISCHARGE INSTRUCTIONS: If the patient continues to have concerns regarding her hip pain, then MRI of the right hip should be performed 6 weeks after when it is safe for MRI to be performed. She was advised by both myself and the cardiology service to avoid NSAID use now that she is on anticoagulation. Cardiology recommends that she should ultimately have an outpatient stress test in the future; however, this will be determined in the outpatient setting. She has office appointment scheduled for 04/06/19 for the cardiology office for an EKG check. The patient takes Celexa and with her new dronedarone, this does cause risk for QT prolongation and she was advised of this risk. I have decreased her Celexa to 10 mg and this should be slowly tapered over the next 2 to 4 weeks by her primary care provider. She was advised to follow up with her primary care provider within 1 week. She was advised to limit her left upper extremity movement as recommended by cardiology service due to the risk in pacemaker placement and further instructions will be discussed outpatient as to how long these limitations will be. She was advised to return to the emergency department if she is experiencing chest pain, difficulty breathing, fluttering in her chest, loss of consciousness, fever, chills, or significant pain at the site of pacemaker placement. DISCHARGE MEDICATIONS: Continued home medications: 1. Depakote 250 mg p.o. daily. 2. Wellbutrin 300 mg p.o. daily. 3. Lipitor 10 mg p.o. daily. 4. Glipizide 10 mg p.o. daily. 5. Omeprazole 20 mg p.o. daily. 6. Metformin 1000 mg p.o. b.i.d. New medications: 1. Oxycodone 5 mg p.o. q.6 hours p.r.n. severe pain (2 day supply provided). 2. Metoprolol succinate 50 mg p.o. b.i.d. 3. Lidocaine patch, 1 patch transdermally daily p.r.n. pain. 4. Ferrous gluconate 324 mg p.o. daily. 5. Dronedarone 400 mg p.o. b.i.d. 6. Celexa 10 mg p.o. q.p.m. 7. Keflex 250 mg p.o. t.i.d. x3 days. 8. Eliquis 5 mg p.o. b.i.d. 9. Tylenol 650 mg p.o. q.6 hours p.r.n. mild pain. Discontinued home medications: 1. Citalopram 20 mg p.o. daily. 2. Lisinopril 20 mg p.o. daily. 3. Hydrochlorothiazide 25 mg p.o. daily. DISCHARGE DISPOSITION: Home. CONDITION AT DISCHARGE: Stable. TIME SPENT: Approximately 45 minutes was spent on this discharge, approximately half of this time was spent at bedside evaluating the patient and discussing the plan of care and coordinating her care. GRACE GUZMAN [id number]/[facility] #: [id number] MTDD
== END 2019-04-04 14:57 | disposition home health service (06) | DRG 243 ==
LOC: ED 19:33 → MEDTELE 23:51 → OBSVTOIN 23:52 → ICU 04-01 00:37 → MEDTELE 04-02 12:48
PROVIDERS: ADMIT Internal Medicine; ATTEND Internal Medicine
PROC: 02H63JZ Insertion of Pacemaker Lead into Right Atrium, Percutaneous Approach (ICD-10-PCS; 2019-04-03)
PROC: 02HK3JZ Insertion of Pacemaker Lead into Right Ventricle, Percutaneous Approach (ICD-10-PCS; 2019-04-03)
PROC: 0JH606Z Insertion of Pacemaker, Dual Chamber into Chest Subcutaneous Tissue and Fascia, Open Approach (ICD-10-PCS; principal; 2019-04-03 10:00)
DX: I48.0 Paroxysmal atrial fibrillation (principal); I13.0 Hypertensive heart and chronic kidney disease with heart failure and stage 1 through stage 4 chronic kidney disease, or unspecified chronic kidney disease; N17.9 Acute kidney failure, unspecified; I50.22 Chronic systolic (congestive) heart failure; I48.92 Unspecified atrial flutter; E78.5 Hyperlipidemia, unspecified; F32.9 Major depressive disorder, single episode, unspecified; F41.9 Anxiety disorder, unspecified; K21.9 Gastro-esophageal reflux disease without esophagitis; M19.042 Primary osteoarthritis, left hand; M19.041 Primary osteoarthritis, right hand; M54.31 Sciatica, right side; I49.5 Sick sinus syndrome; W01.0XXA Fall on same level from slipping, tripping and stumbling without subsequent striking against object, initial encounter; I45.10 Unspecified right bundle-branch block; M54.5 Low back pain; M25.551 Pain in right hip; E11.36 Type 2 diabetes mellitus with diabetic cataract; D50.9 Iron deficiency anemia, unspecified; E11.22 Type 2 diabetes mellitus with diabetic chronic kidney disease; N18.9 Chronic kidney disease, unspecified; E83.42 Hypomagnesemia; Z88.8 Allergy status to other drugs, medicaments and biological substances; Z87.891 Personal history of nicotine dependence; Y92.000 Kitchen of unspecified non-institutional (private) residence as the place of occurrence of the external cause; Z79.84 Long term (current) use of oral hypoglycemic drugs; Z79.01 Long term (current) use of anticoagulants; Z79.899 Other long term (current) drug therapy
CPT/HCPCS: 33208; 36415; 70450; 71045; 71046; 72131; 72192; 80048; 80053; 82272; 82728; 83540; 83550; 83605; 83735; 83880; 84443; 84484; 85025; 85027; 85379; 85610; 85730; 87641; 93005; 93306; 94762; 96374; 99156; 99157; 99284; A9270-GY; C1785; C1892; C1898; C8929; J0153; J0282; J0690; J1650; J1885; J2250; J2310; J3010; J3475; J3490

== ENCOUNTER 2019-06-01 13:57 | Emergency (ER) | payer MEDICARE ==
--- NOTE | 2019-06-01 14:05 | ED ---
HPI Chest Pain - HPI Summary HPI Summary: 78 year old F presenting to [facility] via EMS with a chief complaint of shortness of breath since last night, worse since today. Patient reports fast, short, sharp, left sided chest pains last night. The patient rates the current pain 0/ 10 in severity. Symptoms aggravated by nothing. Symptoms alleviated by nothing. The patient spoke with Dr. Kingsley yesterday who she says was not concerned. She had a Pacemaker placed 6 weeks ago. The patient states that she has a runny nose and gets diaphoresis. Patient denies any fever, chills, erythema of eyes, sore throat, cough, abdominal pain, nausea/vomiting, dysuria, hematuria, myalgia , edema, rash, or dizziness. She has been isolating herself. Medication list reviewed. Allergy list reviewed. - History of Current Complaint Hx Obtained From: Patient Onset/Duration: Started Hours Ago Timing: Intermittent Current Severity: None Pain Intensity: 0 Pain Scale Used: 0-10 Numeric Chest Pain Location: Discrete at: - Left side Aggravating Factor(s): Nothing Alleviating Factor(s): Nothing Associated Signs and Symptoms: Positive: Negative - Dysuria, hematuria, erythema (eyes), sore throat, myalgia, edema, rash, Chest Pain, Diaphoresis, Other: - Runny nose. Negative: Dizziness, Fever, Chills, Nausea, Cough, Abdominal Pain, Vomiting - Additional Pertinent History Primary Care Physician: [id number] - Allergy/Home Medications Allergies/Adverse Reactions: Allergies Allergy/AdvReac Type Severity Reaction Status Date / Time nickel Allergy Blisters Verified 03/31/19 19:41 Home Medications: Home Medications Atorvastatin* [Lipitor 10 MG*] 10 mg PO QAM 06/07/12 [History Confirmed 06/01/19 ] Acetaminophen TAB* [Tylenol TAB*] 650 mg PO Q6H PRN tab 04/04/19 [Rx Confirmed 06/01/19] Apixaban* [Eliquis*] 5 mg PO BID #60 tab 04/04/19 [Rx Confirmed 06/01/19] Citalopram TAB* [Celexa TAB*] 10 mg PO QPM #14 tab 04/04/19 [Rx Confirmed ] Dronedarone TAB* [Multaq TAB*] 400 mg PO BID #60 tab 04/04/19 [Rx Confirmed ] BuPROPion XL* [Bupropion XL*] 300 mg PO DAILY 06/01/19 [History Confirmed ] Bumetanide TAB* [Bumex 1 MG TAB*] 0.5 mg PO DAILY PRN 06/01/19 [History Confirmed 06/01/19] Divalproex ER TAB(*) [Depakote ER TAB(*)] 250 mg PO BEDTIME 06/01/19 [History Confirmed 06/01/19] Ferrous Gluconate TAB* [Fergon TAB*] 325 mg PO DAILY 06/01/19 [History Confirmed 06/01/19] Gabapentin CAP(*) [Neurontin 100 mg CAP(*)] 100 mg PO BEDTIME PRN MDD 200 mg [History Confirmed 06/01/19] Hydrochlorothiazide TAB* [Hydrodiuril TAB*] 25 mg PO DAILY 06/01/19 [History Confirmed 06/01/19] Lisinopril TAB* [Prinivil TAB*] 20 mg PO DAILY 06/01/19 [History Confirmed 05/31] Metformin ER (NF) 1,000 mg PO BID 06/01/19 [History Confirmed 06/01/19] Metoprolol Succinate XL TAB* [Toprol XL TAB*] 50 mg PO DAILY 06/01/19 [History Confirmed 06/01/19] Metoprolol Tartrate TAB* [Lopressor TAB*] 50 mg PO BID #28 tab 06/01/19 [Rx] Omeprazole CAP (NF) [Prilosec CAP* 20 MG] 20 mg PO BID 06/01/19 [History Confirmed 06/01/19] Polyethylene Glycol 3350 [Glycolax] 17 gm PO DAILY 06/01/19 [History Confirmed 06/01/19] glipiZIDE TAB* [Glucotrol TAB*] 5 mg PO DAILY 06/01/19 [History Confirmed ] oxyCODONE TAB* [Roxycodone TAB 5 mg*] 5 - 10 mg PO Q4H PRN 06/01/19 [History Confirmed 06/01/19] PMH/Surg Hx/FS Hx/Imm Hx Endocrine/Hematology History: Reports: Hx Diabetes - TYPE II ON ORAL MEDICATIONS Cardiovascular History: Reports: Hx Hypercholesterolemia, Hx Hypertension - ON MEDICATION Denies: Hx Angina, Hx Coronary Artery Disease, Hx Myocardial Infarction, Hx Pacemaker/ICD, Hx Valvular Heart Disease Respiratory History: Denies: Hx Asthma, Hx Chronic Obstructive Pulmonary Disease (COPD) GI History: Reports: Hx Gastroesophageal Reflux Disease - ON MEDICATION FOR Musculoskeletal History: Reports: Hx Arthritis - HANDS, Other Musculoskeletal History - Sciatica right side Sensory History: Reports: Hx Cataracts - BILATERAL, Hx Contacts or Glasses - GLASSES Denies: Hx Hearing Aid Opthamlomology History: Reports: Hx Cataracts - BILATERAL, Hx Contacts or Glasses - GLASSES Psychiatric History: Reports: Hx Depression - ON MEDICATION FOR, Hx Bipolar Disorder - Cancer History Hx Chemotherapy: No Hx Radiation Therapy: No - Surgical History Surgical History: Yes Surgery Procedure, Year, and Place: CARPAL TUNNEL RELEASE BILATERALLY. C- SECTIONS X 2 Hx Anesthesia Reactions: No - Family History Known Family History: Positive: Cardiac Disease, Other - CVA, [place] - Social History Alcohol Use: Rare Substance Use Type: Reports: None Smoking Status (MU): Never Smoked Tobacco Review of Systems Positive: Skin Diaphoresis. Negative: Fever, Chills Negative: Erythema Positive: Nasal Discharge. Negative: Sore Throat Positive: Chest Pain Positive: Shortness Of Breath. Negative: Cough Negative: Abdominal Pain, Vomiting, Nausea Negative: dysuria, hematuria Negative: Myalgia, Edema Negative: Rash Neurological/Mental Status: Negative - Dizziness All Other Systems Reviewed And Are Negative: Yes Physical Exam - Summary Physical Exam Summary: Constitutional: Well-developed, Well-nourished, Alert. (-) Distressed Skin: Warm, Dry HENT: Normocephalic; Atraumatic Eyes: Conjunctiva normal Neck: Musculoskeletal ROM normal neck. (-) JVD, (-) Stridor, (-) Tracheal deviation Cardio: Rapid irregular heart rate, Heart sounds normal; Intact distal pulses; The pedal pulses are 2+ and symmetric. Radial pulses are 2+ and symmetric. (-) Murmur Pulmonary/Chest wall: Effort normal. (-) Respiratory distress, (-) Wheezes, (-) Rales Abd: Soft, (-) tenderness, (-) Distension, (-) Guarding, (-) Rebound Musculoskeletal: (-) Edema Lymph: (-) Cervical adenopathy Neuro: Alert, Oriented x3 Psych: Mood and affect Normal Triage Information Reviewed: Yes Vital Signs Reviewed: Yes Procedures - Sedation Patient Received Moderate/Deep Sedation with Procedure: No Diagnostics - Laboratory Result Diagrams: 06/01/19 17:32 06/01/19 18:12 Lab Statement: Any lab studies that have been ordered have been reviewed, and results considered in the medical decision making process. - Radiology Chest x-ray Radiology Interpretation Completed By: Radiologist Summary of Radiographic Findings: 1. No acute cardiopulmonary process by radiograph. 2. 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 Probably with a chronic rotator cuff injury. ED physician has reviewed this report. - EKG 14:23 Cardiac Rate: Other Rate - 130 BPM EKG Rhythm: Atrial Flutter Summary of EKG Findings: No STEMI. ED physician has reviewed and interpreted this EKG. Re-Evaluation - Re-Evaluation First Eval Re-Evaluation Time: 16:40 Comment: Discussed the pacer interrogation with [employer], the patient's heart rate has been up to 150/170 BPM, rapid atrial fibrillation and rapid atrial flutter. On re-evaluation the patient's heart rate is 73 BPM and sinus. Chest Pain Course/Dx - Course Course Of Treatment: 78 year old F presenting to [facility] via EMS with a chief complaint of shortness of breath since last night, worse since today. Patient reports fast, short, sharp, left sided chest pains last night. Physical exam findings: rapid irregular heart rate. An EKG reveals atrial flutter rate of 130 BPM, no STEMI. CXR reveals, per radiologist, 1. No acute cardiopulmonary process by radiograph. 2. 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 Probably with a chronic rotator cuff injury. Laboratory results with no significant abnormalities except for Hgb of 10.8, Hct of 34, MCV of 74, MCH of 24, RDW of 18, BUN of 25, creatinine of 1.31, and calcium of 8.5. In the ED course, the patient was given Duonebs and Multaq. I reviewed her medical records from her hospital discharge in March and she was discharged with a prescription for Metoprolol 50 mg twice per day. However, our pharmacist verified 50 mg once per day with her pharmacy and she is unaware of the medication. I am concerned for medication uncompliance. Given her rapid atrial flutter and atrial fibrillation, will restart her Metoprolol 50 mg twice per day. She states that she has not followed up at all since she left the hospital. Patient will be discharged with prescription for Metoprolol and follow up from Dr. Loving. The patient is agreeable with this plan. - Diagnoses Provider Diagnoses: Atrial flutter with rapid ventricular response, Rapid atrial fibrillation - Critical Care Time Critical Care Statement: Critical care time is provided exclusive of any time spent performing procedures. Discharge ED - Sign-Out/Discharge Documenting (check all that apply): Patient Departure - Discharge Plan Condition: Stable Disposition: HOME Prescriptions: Metoprolol Tartrate TAB* [Lopressor TAB*] 50 mg PO BID #28 tab Patient Education Materials: Atrial Flutter (ED), A-fib (Atrial Fibrillation) ( ED) Referrals: Miki Gould MD [Primary Care Provider] - Darren Loving MD [Medical Doctor] - 5 Days Additional Instructions: Follow-up with Dr. Loving in 3-5 days. Please take your medication as prescribed. Return to the emergency department for changing or worsening symptoms. - Attestation Statements Document Initiated by Scribe: Yes Documenting Scribe: Maria Teresa Simpson Provider For Whom Scribe is Documenting (Include Credential): Ayaz Nelson MD Scribe Attestation: Maria Teresa Xiong, scribed for Ayaz Nelson MD on 06/01/19 at 1932. Status of Scribe Document: Ready
[2019-06-01] MEDS ORDERED: Albuterol/Ipratropium NEB.SOL* (2.5/0.5 MG) 3 ML NEB.SOLN INH ONE (14:11)
--- OUTSIDE RECORDS SUMMARY | 2019-06-01 14:52 | XMS REPORT | Continuity of Care Document ---
:1940 External Reference #:[id number] Author Name Miki Goudl M.D. Address [address] [place] [id number] Problems Description No Information Available Social History [...] Ordering Date Provider Medrol dose pack take as 21units Miki Gould, 05/17/2019 4mg TBPK directed Shay Roller Walker four wheeled 1units R53.1 Carlos 05/02/2019 Misc walker with seat. MD Thom Gabapentin take 1 capsule at 14caps Julia PNorma 03/14/2019 100mg bedtime and up to Shay Bonilla Capsules twice per day as needed for nerve pain, can cause drowsiness Bumetanide 1 by mouth every 30tabs Carlos 04/21/2018 0.5mg day as needed for MD Thom Tablets swollen ankles Blood Glucose use as directed 1units Carlos 04/21/2018 Monitoring System to test blood MD Thom glucose once W/Device Kit daily as per insurance coverage Glycolax 17 g daily in 8 255gm Pricilla Vásquez, 04/15/2018 [id number] Powder oz of water. Dawit Day Bupropion Take 1 Tablet By 90tabs Carlos 04/06/2018 Hydrochloride ER (XL) Mouth Every Day MD Thom 300mg Tablets ER 24HR Glipizide Take 1 Tablet By 90tabs E11.65 Carlos 07/22/2017 5mg Tablets Mouth Every Day MD Thom With Breakfast Ferrous Gluconate 1 by mouth every Unknown day 324(38Fe) mg Tablets Onetouch Delica Use To Test Blood Unknown Lancets Fine 30G Sugar Once Daily 30G Misc Onetouch Verio Flex Use as Directed Unknown Blood Glucose -Need Hmo Monitoring System Insurance w/Device Kit Oxycodone HCL Take 1 -2 Tablet 30tabs Miki Gould, 5mg By Mouth Every 4 M.D. Tablets Hours as Needed For Severe Pain. Maximum daily dose of 8 tablets Metoprolol Succinate Take One Tablet Unknown ER By Mouth Twice A 50mg Tablets ER 24HR Day Multaq Take One Tablet Unknown 400mg Tablets By Mouth Twice A Day Citalopram take one tablet 90tabs Miki Gould, Hydrobromide by mouth every M.D. 10mg evening Tablets Eliquis Unknown 5mg Tablets Omeprazole Take 1 Capsule By 90caps Carlos 20mg Mouth Every Day MD Thom Capsules DR Divalproex Sodium ER Take 1 Tablet By 90tabs Carlos Mouth Everyday AT MD Thom 250mg Tablets ER 24HR Bedtime Atorvastatin Calcium Take 1 Tablet By 90tabs Carlos Mouth Every Day MD Thom 10mg Tablets Metformin HCL ER 2 tab by mouth 360tabs Miki Gould, 500mg every morning and M.D. Tablets ER 24HR 2 tabs by mouth in the evening Trueplus Lancets 28G use as directed 200units Carlos to test blood MD Thom 28G Misc sugars once daily dx: e11.65 or as per brand covered by insurance True Metrix Self use as directed 150units E11.65 Carlos Monitoring Blood to test blood MD Thom Glucose Strips sugars once daily Strips dx: e11.65 or as per brand covered by insurance. History Medications Medrol dose pack take as 21units Miki Gould, 03/26/2019 - 4mg TBPK directed M.DNorma 04/25/2019 Ibuprofen 200 2-3 tabs by mouth 60tabs M54.31 Miki Gould, 03/14/2019 - 200mg three times a day M.D. 04/25/2019 Tablets for pain. Take with food. May cause heartburn. Immunizations CPT Code Status Date Vaccine Lot # [id number] Given 10/26/2017 Influenza Vaccine High Dose PF [id number] Given 03/14/2017 Prevnar-13 Pneumococcal Conjugate Vaccine [id number] 99130 Given 12/15/2016 Influenza Virus Vaccine, Quadrivalent, 3 Yr > Quad, Preserv Free 04142 Given 12/30/2014 Influenza Virus Vaccine, Quadrivalent, 3 Yr > Quad, Preserv Free 35857 Given 11/19/2011 Influenza Virus Vaccine, Quadrivalent, 3 Yr > Quad, Preserv Free 64329 Given 12/04/2008 Pneumovax 23 (PPSV23) 65+ years or high risk 2 to 64 year old Vital Signs Date Vital Result Comment 04/27/2019 2:31pm Weight 208.00 lb Weight 94.349 kg BP Systolic 138 mmHg BP Diastolic 70 mmHg Heart Rate 60 /min Respiratory Rate 18 /min O2 % BldC Oximetry 99 % 03/14/2019 9:59am Weight 214.00 lb Weight 97.070 kg BP Systolic 128 mmHg BP Diastolic 64 mmHg Heart Rate 70 /min Body Temperature 97.7 F Respiratory Rate 16 /min Height 61 inches 5'1" BMI (Body Mass Index) 40.4 kg/m2 O2 % BldC Oximetry 98 % Results Test Acquired Date Facility Test Result H/L Range Note Laboratory test 04/27/2019 In House Lab Glucose 79 finding [phone] - Fingerstick Iron & Iron 03/31/2019 [facility] Iron 24 g/dL Low 50-212 Binding [phone] Capacity Unsaturated Iron Binding < 453 g/dL Total Iron Binding Capacity 468 g/dL High 250-450 Transferrin 334 mg/dL Normal 203-362 % Iron Saturation 5 % Low 15-55 Laboratory test 03/31/2019 [facility] Magnesium 1.1 mg/dL Low 1.9-2.7 finding [phone] Troponin-I (TnI) 0.01 ng/mL <0.03 1 TSH (Thyroid Stimulating Horm) 3.88 mcIU/mL Normal 0.34-5.60 Ferritin 5.0 ng/mL Low 11-307 Comp Metabolic 03/31/2019 [facility] Sodium 138 mmol/ L Normal 135-145 Panel [phone] Potassium 4.3 mmol/L Normal 3.5-5.0 Chloride 106 mmol/L Normal 101-111 Co2 Carbon Dioxide 24 mmol/L Normal 22-32 Anion Gap 8 mmol/L Normal 2-11 Glucose 90 mg/dL Normal 70-100 Blood Urea Nitrogen 34 mg/dL High 6-24 Creatinine 1.51 mg/dL High 0.51-0.95 BUN/Creatinine Ratio 22.5 High 8-20 Calcium 9.5 mg/dL Normal 8.6-10.3 Total Protein 7.1 g/dL Normal 6.4-8.9 Albumin 4.1 g/dL Normal 3.2-5.2 Globulin 3.0 g/dL Normal 2-4 Albumin/Globulin Ratio 1.4 Normal 1-3 Total Bilirubin 0.30 mg/dL Normal 0.2-1.0 Alkaline Phosphatase 102 U/L Normal 34-104 Alt 12 U/L Normal 7-52 Ast 8 U/L Low 13-39 Egfr Non- 33.5 >60 Egfr 40.5 >60 2 Laboratory test 03/31/2019 [facility] Lactic Acid 1.5 mmol/L Normal 0.5-2.0 3 finding [phone] B-Type Natriuretic Peptide BNP 177 pg/mL High <=100 CBC Auto 03/31/2019 [facility] White Blood 10.4 10^3/ uL Normal 3.5-10.8 Diff [phone] Count Red Blood Count 4.01 10^6/uL Normal 3.70-4.87 Hemoglobin 9.8 g/dL Low 12.0-16.0 Hematocrit 30 % Low 35-47 Mean Corpuscular Volume 75 fL Low 80-97 Mean Corpuscular Hemoglobin 24 pg Low 27-31 Mean Corpuscular HGB Conc 33 g/dL Normal 31-36 Red Cell Distribution Width 17 % High 10-15 Platelet Count 265 10^3/uL Normal 150-450 Mean Platelet Volume 8.3 fL Normal 7.4-10.4 Abs Neutrophils 7.6 10^3/uL Normal 1.5-7.7 Abs Lymphocytes 1.9 10^3/uL Normal 1.0-4.8 Abs Monocytes 0.8 10^3/uL Normal 0-0.8 Abs Eosinophils 0.0 10^3/uL Normal 0-0.6 Abs Basophils 0.1 10^3/uL Normal 0-0.2 Abs Nucleated RBC 0.0 10^3/uL Granulocyte % 73.0 % Lymphocyte % 18.7 % Monocyte % 7.4 % Eosinophil % 0.3 % Basophil % 0.6 % Nucleated Red Blood Cells % 0.0 Laboratory test 03/31/2019 [facility] Partial 33.0 Normal 26.0-38.0 finding [phone] Thrombo seconds Time PTT D Dimer Quantitative 320 ng/mL High Less Than 230 4 Inr/Protime 03/31/2019 [facility] Inr 1.11 High 0.82-1.09 5 [phone] Laboratory test 03/31/2019 [facility] Troponin-I 0.02 <0.03 6 finding [phone] (TnI) ng/mL CBC Auto Diff 03/14/2019 [facility] White 5.6 Normal 3.5-10.8 [phone] Blood 10^3/uL Count Red Blood Count 3.89 10^6/uL Normal [...] Blood Cells % 0.0 Comp Metabolic 03/14/2019 [facility] Sodium 137 mmol/ L Normal 135-145 Panel [phone] Potassium 4.7 mmol/L Normal 3.5-5.0 Chloride 104 [...] Egfr Non- 35.4 >60 Egfr 42.8 >60 7 Laboratory test 03/14/2019 [facility] Hemoglobin A1c 7.4 % High 4.0-5.6 8 finding [phone] (Glyco HGB) TSH (Thyroid Stim Horm) 2.77 mcIU/mL Normal 0.34-5.60 9 Lipid Profile 03/14/2019 [facility] Triglycerides 98 mg/dL 10 (Trig/Chol/HDL) [phone] Cholesterol 109 mg/dL 11 HDL Cholesterol 43.5 mg/dL 12 LDL Cholesterol 46 mg/dL 13 1 Troponin-I testing on Plasma Separator Tubes (PST) has a known false positive rate of 0.20-0.40%. All positive troponins reflex immediately to secondary confirmatory testing. Using the [employer] 800 Access Immunoassay systems, the 99th percentile upper reference limit was demonstrated to be < 0.03 ng/mL. 2 Because ethnic data is not always readily [...] 15-29 5 Kidney failure <15 (or dialysis) 3 [facility] Severe Sepsis and Septic Shock Management Bundle Measure requires all lactic acids initially measuring >2.0 mmol/L be repeated. 4 Please note: The following may produce a false positive D Dimer test: - Rheumatoid factor greater than 60 IU/ml - Plasma hemoglobin greater than 0.05 gm/dl - Bilirubin greater than 50 mg/dl - Lipids greater than 1000 mg/dl - FDP greater than 20 ug/ml 5 Standard intensity warfarin therapeutic range: 2.0-3.0 High intensity warfarin therapeutic range: 2.5-3.5 6 Troponin-I testing on Plasma Separator Tubes (PST) has a known false positive rate of 0.20-0.40%. All positive troponins reflex immediately to secondary confirmatory testing. Using the [employer] DxI 800 Access Immunoassay systems, the 99th percentile upper reference limit was demonstrated to be < 0.03 ng/mL. 7 Because ethnic data is not always readily [...] 15-29 5 Kidney failure <15 (or dialysis) 8 Therapeutic target for the treatment of diabetes mellitus patients is <7% HBA1C, and in selective patients <6.0%. Please refer to [place] Diabetes Association diabetic care guidelines for further information. 9 [id number] Desirable: <150 Borderline High: 150-199 High: 200-499 Very High: >500 11 Desirable: <200 Borderline High: 200-239 High: >239 12 Low: <40 Desirable: 40-60 High: >60 13 Desirable: <100 Near Optimal: 100-129 Borderline High: 130-159 High: 160-189 Very High: >189 Procedures Description No Information Available Medical Devices Description No Information Available Encounters Type Date Location Provider Dx Diagnosis Office Visit 04/27/2019 Main Office Carlos Tomas M54.31 Sciatica, right 2:30p MD side F31.81 Bipolar II disorder I48.0 Paroxysmal atrial fibrillation I50.9 Heart failure, unspecified I49.5 Sick sinus syndrome Office Visit 03/14/2019 10:00a Main Office Miki Gould M.D. M54.31 Sciatica, right side E11.65 Type 2 diabetes mellitus with hyperglycemia Assessments Date Code Description Provider 05/17/2019 M54.31 Sciatica, right side Miki Gould M.D. 04/27/2019 M54.31 Sciatica, right side Carlos Tomas MD 04/27/2019 F31.81 Bipolar II disorder Carlso Tomas MD 04/27/2019 I48.0 Paroxysmal atrial fibrillation Carlos Tomas MD 04/27/2019 I50.9 Heart failure, unspecified Carlos Tomas MD 04/27/2019 I49.5 Sick sinus syndrome Carlos Tomas MD 03/14/2019 M54.31 Sciatica, right side Miki Gould M.D. 03/14/2019 E11.65 Type 2 diabetes mellitus with hyperglycemia Miki Gould M.D. Plan of Treatment Future Appointment(s):05/31/2019 10:00 am - Miki Gould M.D. at Main [id number] - Miki Gould M.D.M54.31 Sciatica, right sideRecommendations:Lets repeat the steroid pills. Take 2 glipizide every morning while 1 or 2 oxycodone every 4 hours as needed. Watch for constipation. Never take more than 8 tylenol in a day. Functional Status Description No Information Available Mental Status Description No Information Available Referrals Description No Information Available
--- OUTSIDE RECORDS SUMMARY | 2019-06-01 14:52 | XMS REPORT ---
:1940 Author Organization [facility] Care Team Providers Name Role Phone Unavailable Unavailable Unavailable Problems Condition Condition Condition Status Onset Resolution Last Treating Comments Name Details Category Date Date Treatment Clinician Date Sick sinus Sick sinus Diagnosis Active Latoya syndrome syndrome 2- Malnoske RN Presence of Presence of Diagnosis Active Latoya cardiac cardiac 2- Malnoske pacemaker pacemaker RN Essential Essential Diagnosis Active Latoya (primary) (primary) 2- Malnoske hypertensio hypertensio RN n n Type 2 Type 2 Diagnosis Active Latoya diabetes diabetes 2- Malnoske mellitus mellitus RN without without complicatio complicatio ns ns Major Major Diagnosis Active 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, disorder, RN recurrent, recurrent, unspecified unspecified Hyperlipide Hyperlipide Diagnosis Active Latoya dorina, dorina, 2- Malnoske unspecified unspecified RN Bipolar Bipolar Diagnosis Active Latoya disorder, disorder, Malnoske unspecified unspecified RN halfway halfway Diagnosis Active Latoya (current) (current) Malnoske use of use of RN anticoagula anticoagula nts nts Pain frequent Pain Mgmt Resolve 2019-04-16 Julieta pain d 04-06 09:35:00 Vallely 09:15: 00 Pain knowledge/s Pain Mgmt Resolve 2019-04-16 Julieta kill d 04-06 09:35:00 Vallely deficit: pt 09:15: 00 Cardio knowledge/s Cardiovasc Resolve 2019-05-03 Julieta oneill ular d 04-06 14:20:00 Vallely deficit: pt 09:15: 00 Cardio pacemaker/I Cardiovasc Resolve 2019-04-16 Julieta staleyar tonja 04-06 09:35:00 Vallely 09:15: 00 Respiratory dyspnea Respirator Resolve 2019-04-12 Julieta present y d 04-06 12:50:00 Vallely 09:15: 00 Endo/Angelito knowledge/s Endo/Angelito Resolve 2019-04-12 Julieta kill d 04-06 12:50:00 Vallely deficit: pt 09:15: 00 Endo/Angelito anti-coagul Endo/Angelito Resolve 2019-04-12 Julieta ation d 04-06 12:50:00 Vallely therapy 09:15: 00 Sensory impaired Sensory Resolve 2019-05-03 Julieta hearing d 04-06 14:20:00 Vallely 09:15: 00 Integument surgical Integument Resolve 2019-04-12 Julieta wound d 04-06 12:50:00 Vallely present 09:15: 00 Integument knowledge/s Integument Resolve 2019-04-12 Julieta kill d 04-06 12:50:00 Vallely deficit: pt 09:15: 00 Nutrition knowledge/s Nutrition Resolve 2019-04-16 Julieta kill d 04-06 09:35:00 Vallely deficit: pt 09:15: 00 Nutrition nutritional Nutrition Resolve 2019-04-12 Julieta restriction d 04-06 12:50:00 Vallely s 09:15: 00 Elimination diarrhea Eliminatio Resolve 2019-04-12 Julieta n d 04-06 12:50:00 Vallely 09:15: 00 Elimination knowledge/s Eliminatio Resolve 2019-04-12 Julieta kill n d 04-06 12:50:00 Vallely deficit: pt 09:15: 00 Neuro confusion Neuro/Emot Resolve 2019-05-03 Julieta present ion d 04-06 14:20:00 Vallely 09:15: 00 Neuro knowledge/s Neuro/Emot Resolve 2019-04-12 Julieta kill ion d 04-06 12:50:00 Vallely deficit: pt 09:15: 00 Activity ADL Activity Resolve 2019-04-19 Julieta assistance d 04-06 15:32:00 Vallely required 09:15: 00 Activity knowledge/s Activity Resolve 2019-04-19 Julieta kill d 04-06 15:32:00 Vallely deficit: pt 09:15: 00 Activity self-care Activity Resolve 2019-04-19 Julieta deficit d 04-06 15:32:00 Vallely 09:15: 00 Safety knowledge/s Safety Resolve 2019-04-26 Julieta kill d 04-06 15:15:00 Vallely deficit: pt 09:15: 00 Safety fall risk Safety Resolve 2019-04-09 Julieta factor d 04-06 11:34:00 Vallely present 09:15: 00 Safety risk for Safety Resolve 2019-04-09 Julieta hospitaliza d 04-06 11:34:00 Vallely tion 09:15: 00 Safety can be left Safety Resolve 2019-04-26 Julieta alone for d 04-06 15:15:00 Vallely only short 09:15: periods 00 Medication oral med Meds Resolve 2019-04-12 Julieta assistance d 04-06 12:50:00 Vallely required 09:15: 00 Medication knowledge/s Meds Resolve 2019-05-09 Julieta kill d 04-06 10:15:00 Vallely deficit: pt 09:15: 00 Medication potential Meds Resolve 2019-05-09 Julieta clinically d 04-06 10:15:00 Vallely significant 09:15: medication 00 issue Musculoskel transfer Musculoske Resolve 2019-04-12 Julieta etal assistance letal d 04-06 12:50:00 Vallely required 09:15: 00 Musculoskel knowledge/s Musculoske Resolve 2019-04-12 Julieta etal kill letal d 04-06 12:50:00 Vallely deficit: pt 09:15: 00 Musculoskel requires Musculoske Resolve 2019-04-12 Julieta etal human letal d 04-06 12:50:00 Vallely assist to 09:15: leave home 00 Social support DEB: Active Julieta Services deficit Social 04-06 Vallely Services 09:15: 00 Cardio knowledge/s Cardiovasc Unknown 2019-0 Latoya kill ular 2-24 Malnoske deficit: pt 11:34: RN 00 Respiratory dyspnea Respirator Unknown 2019-0 Latoya present y 2-24 Malnoske 11:34: RN 00 Endo/Angelito knowledge/s Endo/Angelito Unknown 2019-0 Latoya kill 2-24 Malnoske deficit: pt 11:34: RN 00 Endo/Angelito anti-coagul Endo/Angelito Unknown 2019-0 Latoya ation 2-24 Malnoske therapy 11:34: RN 00 Integument surgical Integument Unknown 2019-0 Latoya wound 2-24 Malnoske present 11:34: RN 00 Integument knowledge/s Integument Unknown 2019-0 Latoya kill 2-24 Malnoske deficit: pt 11:34: RN 00 Nutrition knowledge/s Nutrition Unknown 2019-0 Latoya kill 2-24 Malnoske deficit: pt 11:34: RN 00 Nutrition nutritional Nutrition Unknown 2019-0 Latoya restriction 2-24 Malnoske s 11:34: RN 00 Elimination knowledge/s Eliminatio Unknown 2019-0 Latoya kill n 2-24 Malnoske deficit: pt 11:34: RN 00 Neuro confusion Neuro/Emot Unknown 2019-0 Latoya present ion 2-24 Malnoske 11:34: RN 00 Neuro knowledge/s Neuro/Emot Unknown 2019-0 Latoya kill ion 2-24 Malnoske deficit: pt 11:34: RN 00 Activity ADL Activity Unknown 2019-0 Latoya assistance 2-24 Malnoske required 11:34: RN 00 Activity knowledge/s Activity Unknown 2019-0 Latoya kill 2-24 Malnoske deficit: pt 11:34: RN 00 Activity self-care Activity Unknown 2019-0 Latoya deficit 2-24 Malnoske 11:34: RN 00 Safety knowledge/s Safety Unknown 2019-0 Latoya kill 2-24 Malnoske deficit: pt 11:34: RN 00 Safety can be left Safety Unknown 2019-0 Latoya alone for 2-24 Malnoske only short 11:34: RN periods 00 Medication oral med Meds Unknown 2019-0 Latoya assistance 2-24 Malnoske required 11:34: RN 00 Medication knowledge/s Meds Unknown 2020-0 Latoya kill 2-24 Malnoske deficit: pt 11:34: RN 00 Medication potential Meds Unknown Latoya clinically 2- Malnoske significant 11:34: roll up helper 00 issue Musculoskel transfer Musculoske Unknown Latoya etal assistance letal - Malnoske required 11:34: RN 00 Musculoskel knowledge/s Musculoske Unknown Latoya etal kill letal - Malnoske deficit: pt 11:34: RN 00 Safety risk for Safety Unknown Jonn hospitaliza 2- Lacey tion 15:15: [id number] Bed transfer PT/OT: Bed Resolve 2019-05-02 Jonn Mobility/Tr deficit: Mobility/T d 224 15:45:00 Abhijit joel sit/stand ransfer 15:15: [id number] 00 Bed transfer PT/OT: Bed Resolve 2019-05-02 Jonn Mobility/Tr deficit: Mobility/T d 224 15:45:00 Abhijit joel shower/tub ransfer 15:15: [id number] 00 Bed knowledge/s PT/OT: Bed Resolve 2019-05-02 Jonn Mobility/Tr kill Mobility/T d 224 15:45:00 Abhijit joel deficit: pt ransfer 15:15: [id number] 00 Bed bed PT/OT: Bed Resolve 2019-05-02 Jonn Mobility/Tr mobility Mobility/T d 224 15:45:00 Abhijit joel deficit ransfer 15:15: [id number] 00 Balance/End balance/litigation coordinator PT/OT: Resolve 2019-05-02 Jonn blake rdination Balance/En d 224 15:45:00 Abhijit deficit durance 15:15: [id number] Balance/End endurance PT/OT: Resolve 2019-05-02 Jonn urance deficit Balance/En d 224 15:45:00 Lacey durance 15:15: [id number] 00 Balance/End knowledge/s PT/OT: Resolve 2019-05-02 Jonn urance kill Balance/En d 224 15:45:00 Abhijit deficit: pt durance 15:15: [id number] 00 Gait/Locomo knowledge/s PT/OT: Resolve 2019-05-02 Jonn tion kill Gait/Locom d 24 15:45:00 Lacey problems deficit: pt otion 15:15: [id number] Gait/Locomo knowledge/s PT/OT: Resolve 2019-05-02 Jonn tion kill Gait/Locom d 24 15:45:00 Lacey problems deficit: cg otion 15:15: [id number] Gait/Locomo gait PT/OT: Resolve 2019-05-02 Jonn tion deficit Gait/Locom d 04-09 15:45:00 Lacey problems otion 15:15: [id number] 00 Activity self-care Activity Unknown Latoya deficit 04-12 Malnoske 12:50: RN 00 Safety risk for Safety Resolve 2019-04-12 Latoya hospitaliza d 04-12 12:50:00 Malnoske tion 12:50: RN 00 Safety risk for Safety Resolve 2019-04-19 Sheila White hospitaliza d 04-13 15:32:00 tion 10:45: 22 Safety fall risk Safety Resolve 2019-04-19 Sheila White factor d 04-13 15:32:00 present 10:45: 22 Endo/Angelito knowledge/s Endo/Angelito Resolve 2019-04-16 Jonn kill d 04-13 09:35:00 Lacey deficit: pt 15:50: [id number] Nutrition nutritional Nutrition Resolve 2019-04-16 Jnon restriction d 04-13 09:35:00 Lacey s 15:50: [id number] 00 Neuro knowledge/s Neuro/Emot Resolve 2019-04-26 Jonn kill ion d 04-13 15:15:00 Lacey deficit: pt 15:50: [id number] 00 Musculoskel knowledge/s Musculoske Resolve 2019-04-19 Jonn etal kill letal d 04-13 15:32:00 Lacey deficit: pt 15:50: [id number] 00 Endo/Angelito anti-coagul Endo/Angelito Resolve 2019-04-19 Latoya ation d 04-15 15:32:00 Malnoske therapy 09:35: RN 00 Endo/Angelito knowledge/s Endo/Angelito Unknown Ngozi kill 04-15 Hillebrand deficit: pt 14:00: t 00 [id number] Cardio pacemaker/I Cardiovasc Resolve 2019-05-03 Latoya CD ular d 04-18 14:20:00 Malnoske 15:32: RN 00 Endo/Angelito knowledge/s Endo/Angelito Resolve 2019-04-19 Altoya kill d 04-18 15:32:00 Malnoske deficit: pt 15:32: RN 00 Neuro anxiety Neuro/Emot Resolve 2019-05-03 Latoay present ion d 04-22 14:20:00 Malnoske 14:40: RN 00 Safety risk for Safety Resolve 2019-04-26 Latoya hospitaliza d 04-22 15:15:00 Malnoske tion 14:40: RN 00 Musculoskel knowledge/s Musculoske Active Latoya etal kill letal 04-22 Malnoske deficit: pt 14:40: RN 00 Musculoskel requires Musculoske Resolve 2019-04-26 Latoya etal human letal d 04-22 15:15:00 Malnoske assist to 14:40: RN leave home 00 Safety risk for Safety Resolve 2019-04-30 Latoya hospitaliza d 04-29 15:05:00 Malnoske tion 15:05: RN 00 Musculoskel requires Musculoske Resolve 2019-05-03 Latoya etal human letal d 04-29 14:20:00 Malnoske assist to 15:05: RN leave home 00 Safety risk for Safety Resolve 2019-05-03 Jonn hospitaliza d 05-01 14:20:00 Lacey tion 15:45: [id number] 00 Cardio pacemaker/I Cardiovasc Active Latoya CD ular 05-08 Malnoske 10:15: RN 00 Safety risk for Safety Resolve 2019-05-09 Latoya hospitaliza d 05-08 10:15:00 Malnoske tion 10:15: RN 00 Allergies, Adverse Reactions, Alerts Allergy Allergy Type Status Severity Reaction(s) Onset Inactive Treating Comments Name Date Date Clinician nickel Base Active Unknown Blisters 2019-03 Venecia Beam Medications Ordered Filled Start Stop Current Ordering Indication Dosage Frequency Signature Comments Components Medication Medication Date Date Medication? Clinician (SIG) Name Name apixaban 5 apixaban 5 2020- Yes Gould Unknown Unknown mg tablet mg tablet 04-06 Miki KATZ apixaban 5 apixaban 5 Yes Brand Unknown Unknown mg tablet mg tablet 04-06 Darren KATZ cephALEXin cephALEXin 2019- Yes Brand Unknown Unknown 250 mg 250 mg 04-06 Darren KATZ capsule capsule citalopram citalopram Yes Gould Unknown Unknown 10 mg 10 mg 04-06 Miki KATZ tablet tablet Multaq 400 Multaq 400 Yes Brand Unknown Unknown mg tablet mg tablet 04-06 Darren KATZ ferrous ferrous Yes Gould Unknown Unknown gluconate gluconate 04-06 Miki KATZ 324 mg 324 mg (37.5 mg (37.5 mg iron) iron) tablet tablet metoprolol metoprolol 2020- Yes Brand Unknown Unknown succinate succinate 04-06 Darren KATZ ER 50 mg ER 50 mg tablet,exte tablet,exte nded nded release 24 release 24 hr hr divalproex divalproex Yes Gould Unknown Unknown 250 mg 250 mg 04-06 Miki KATZ tablet,sukhjinder tablet,sukhjinder yed release yed release buPROPion buPROPion Yes Gould Unknown Unknown HCL XL 300 HCL XL 300 04-06 Miki KATZ 24 hr mg 24 hr tablet, tablet, extended extended release release atorvastati atorvastati Yes Gould Unknown Unknown n 10 mg n 10 mg 04-06 Miki KATZ tablet tablet glipiZIDE glipiZIDE 2020- Yes Gould Unknown Unknown ER 5 mg ER 5 mg 04-06 Miki KATZ tablet, tablet, extended extended release 24 release 24 hr hr omeprazole omeprazole 2019- Yes Gould Unknown Unknown 20 mg 20 mg 04-06 Miki KATZ capsule,del capsule,del ayed ayed release release metFORMIN metFORMIN Yes Gould Unknown Unknown 500 mg 500 mg 04-06 Miki KATZ tablet tablet TylenoL 325 TylenoL 325 2020- Yes Gould Unknown Unknown mg tablet mg tablet 04-06 Miki KATZ oxyCODONE 5 oxyCODONE 5 2019- Yes Brand Unknown Unknown mg tablet mg tablet 04-06 Darren KATZ glipiZIDE glipiZIDE 2019- Yes Gould Unknown Unknown ER 5 mg ER 5 mg 04-15 Miki KATZ tablet, tablet, extended extended release 24 release 24 hr hr gabapentin gabapentin Yes Gould Unknown Unknown 100 mg 100 mg 04-25 Miki KATZ capsule capsule glipiZIDE glipiZIDE Yes Gould Unknown Unknown ER 5 mg ER 5 mg 04-26 Miki KATZ tablet, tablet, extended extended release 24 release 24 hr hr metoprolol metoprolol Yes Brand Unknown Unknown succinate succinate 05-02 Darren KATZ ER 50 mg ER 50 mg tablet,exte tablet,exte nded nded release 24 release 24 hr hr Tylenol Tylenol Yes Gould Unknown Unknown Extra Extra 05-08 Miki KATZ Strength Strength 500 mg 500 mg tablet tablet oxyCODONE 5 oxyCODONE 5 Yes Gould Unknown Unknown mg tablet mg tablet 05-08 Miki KATZ Vital Signs Vital Name Observation Time Observation Value Comments SYSTOLIC mm[Hg] 2019-05-09 18:11:03 130 mm[Hg] mm[Hg] Method: Sit DIASTOLIC mm[Hg] 2019-05-09 18:11:03 64 mm[Hg] mm[Hg] Method: Sit PULSE 2019-05-10 18:11:04 64 /min /min RESP RATE 2019-05-09 18:11:03 16 /min /min TEMP 2019-05-09 18:11:03 97.1 [degF] Procedures This patient has no known procedures. Results This patient has no known results.
--- OUTSIDE RECORDS SUMMARY | 2019-06-01 14:52 | XMS REPORT | Continuity of Care Document ---
:1940 External Reference #:[id number] Author Name Miki Gould M.D. (transmitted by agent of provider Tiffanie Puentes) Address [address] [place] [id number] Problems Description No Information Available Social History [...] Gabapentin take 1 capsule at 14caps Julia P. 03/14/2019 100mg bedtime and up to Blegen, MNormaD. Capsules twice per day as needed for [...] Vásquez, 04/15/2018 [id number] Powder oz of water. Shay, R.D. Bupropion Take 1 Tablet By 90tabs Carlos [...] Miki Gould, 03/26/2019 - 4mg TBPK directed M.D. 04/25/2019 Ibuprofen 200 2-3 tabs by mouth 60tabs M54.31 Miki Gould, 03/14/2019 - 200mg three times a day M.D. 04/25/2019 Tablets for pain. Take with food. May cause heartburn. Immunizations CPT Code Status Date Vaccine Lot # 26567 Given 10/26/2017 Influenza Vaccine High Dose PF [id number] 19506 Given 03/14/2017 Prevnar-13 Pneumococcal Conjugate Vaccine [id number] Given 12/15/2016 Influenza Virus Vaccine, Quadrivalent, 3 Yr > Quad, Preserv Free 03180 Given 12/30/2014 Influenza Virus Vaccine, Quadrivalent, 3 Yr > Quad, Preserv Free 37680 Given 11/19/2011 Influenza Virus Vaccine, Quadrivalent, 3 Yr > Quad, Preserv Free 24667 Given 12/04/2008 Pneumovax 23 (PPSV23) 65+ years [...] (607)- - Fingerstick Iron & Iron 03/31/2019 [facility] Iron 24 g/dL Low 50-212 Binding [phone] Capacity Unsaturated Iron Binding < 453 g/dL Total Iron Binding Capacity 468 g/dL High 250-450 Transferrin 334 mg/dL Normal 203-362 % Iron Saturation 5 % Low 15-55 Laboratory test 03/31/2019 [facility] Magnesium 1.1 mg/dL Low 1.9-2.7 finding [phone] Troponin-I (TnI) 0.01 ng/mL <0.03 1 TSH (Thyroid Stimulating Horm) 3.88 mcIU/mL Normal 0.34-5.60 Ferritin 5.0 ng/mL Low 11-307 Comp Metabolic 03/31/2019 [facility] Sodium 138 mmol/ L Normal 135-145 Panel [phone] Potassium 4.3 mmol/L Normal 3.5-5.0 Chloride 106 [...] Egfr 40.5 >60 2 Laboratory test 03/31/2019 [facility] Lactic Acid 1.5 mmol/L Normal 0.5-2.0 3 finding [phone] B-Type Natriuretic Peptide BNP 177 pg/mL High <=100 CBC Auto 03/31/2019 [facility] White Blood 10.4 10^3/ uL Normal 3.5-10.8 Diff [phone] Count Red Blood Count 4.01 10^6/uL Normal [...] Blood Cells % 0.0 Laboratory test 03/31/2019 [facility] Partial 33.0 Normal 26.0-38.0 finding [phone] Thrombo seconds Time PTT D Dimer Quantitative 320 ng/mL High Less Than 230 4 Inr/Protime 03/31/2019 [facility] Inr 1.11 High 0.82-1.09 5 [phone] Laboratory test 03/31/2019 [facility] Troponin-I 0.02 <0.03 6 finding [phone] (TnI) ng/mL CBC Auto Diff 03/14/2019 [facility] White 5.6 Normal 3.5-10.8 [phone] Blood 10^3/uL Count Red Blood Count 3.89 [...] Blood Cells % 0.0 Comp Metabolic 03/14/2019 [facility] Sodium 137 mmol/ L Normal 135-145 Panel [phone] Potassium 4.7 mmol/L Normal 3.5-5.0 Chloride 104 [...] Egfr 42.8 >60 7 Laboratory test 03/14/2019 [facility] Hemoglobin A1c 7.4 % High 4.0-5.6 8 finding [phone] (Glyco HGB) TSH (Thyroid Stim Horm) 2.77 mcIU/mL Normal 0.34-5.60 9 Lipid Profile 03/14/2019 [facility] Triglycerides 98 mg/dL 10 (Trig/Chol/HDL) [phone] Cholesterol 109 mg/dL 11 HDL Cholesterol 43.5 mg/dL 12 LDL Cholesterol 46 mg/dL 13 1 Troponin-I testing on Plasma Separator Tubes (PST) has a known false positive rate of 0.20-0.40%. All positive troponins reflex immediately to secondary confirmatory testing. Using the [employer] DxI 800 Access Immunoassay systems, the 99th [...] 5 Kidney failure <15 (or dialysis) 3 [facility] Severe Sepsis and Septic Shock Management [...] immediately to secondary confirmatory testing. Using the [employer] DxI 800 Access Immunoassay systems, the 99th [...] in selective patients <6.0%. Please refer to [place] [employer] diabetic care guidelines for further information. 9 [id number] Desirable: <150 Borderline High: 150-199 High: 200-499 Very High: >500 11 Desirable: <200 Borderline High: 200-239 High: >239 12 Low: <40 Desirable: 40-60 High: >60 13 Desirable: <100 Near Optimal: 100-129 Borderline High: 130-159 High: 160-189 Very High: >189 Procedures Description No Information Available Medical Devices Description No Information Available Encounters Type Date Location Provider Dx Diagnosis Office Visit 05/17/2019 Main Office Miki Gould M.D. M54.31 Sciatica, right side 2:15p I49.5 Sick sinus syndrome I48.0 Paroxysmal atrial fibrillation I42.9 Cardiomyopathy, unspecified Office Visit 04/27/2019 2:30p Main Office Carlos Tomas, M54.31 Sciatica, right MD side F31.81 Bipolar II disorder I48.0 Paroxysmal atrial fibrillation I50.9 Heart failure, unspecified I49.5 Sick sinus syndrome Office Visit 03/14/2019 10:00a Main Office Miki Gould M.D. M54.31 Sciatica, right side E11.65 Type 2 diabetes mellitus with hyperglycemia Assessments Date Code Description Provider 05/31/2019 M54.31 Sciatica, right side Miki Gould M.D. 05/31/2019 I49.5 Sick sinus syndrome Miki Gould M.D. 05/31/2019 E11.65 Type 2 diabetes mellitus with hyperglycemia Miki Gould M.D. 05/31/2019 F31.81 Bipolar II disorder Miki Gould M.D. 05/17/2019 M54.31 Sciatica, right side Miki Gould M.D. 05/17/2019 I49.5 Sick sinus syndrome Miki Gould M.D. 05/17/2019 I48.0 Paroxysmal atrial fibrillation Miki Gould M.D. 05/17/2019 I42.9 Cardiomyopathy, unspecified Miki Gould M.D. 04/27/2019 M54.31 Sciatica, right side Carlos Tomas MD 04/27/2019 F31.81 Bipolar II disorder Carlos Tomas MD 04/27/2019 I48.0 Paroxysmal atrial fibrillation Carlos Tomas MD 04/27/2019 I50.9 Heart failure, unspecified Carlos Tomas MD 04/27/2019 I49.5 Sick sinus syndrome Carlos Tomas MD 03/14/2019 M54.31 Sciatica, right side Miki Gould M.D. 03/14/2019 E11.65 Type 2 diabetes mellitus with hyperglycemia Miki Gould M.D. Plan of Treatment 05/31/2019 - Miki Gould M.D.M54.31 Sciatica, right sideNew Therapy:Physical Therapy-Evaluate And EugwnR17.5 Sick sinus dakuotdzZ33.65 Type 2 diabetes mellitus with snqymgxkxepslB89.81 Bipolar II disorderFollow up:1 week Functional Status Description No Information Available Mental Status Description No Information Available Referrals Description No Information Available
--- OUTSIDE RECORDS SUMMARY | 2019-06-01 14:52 | XMS REPORT ---
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, disorder, RN recurrent, recurrent, unspecified unspecified Hyperlipide Hyperlipide Diagnosis Active Latoya dorina, dorina, 2- Malnoske unspecified unspecified RN Bipolar Bipolar Diagnosis Active Latoya disorder, disorder, Malnoske unspecified unspecified RN FDC FDC Diagnosis Active Latoya (current) (current) Malnoske use [...] Unknown Latoya clinically 2- Malnoske significant 11:34: 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 issue Musculoskel transfer Musculoske Unknown Latoya etal assistance letal - Malnoske required 11:34: RN 00 Musculoskel knowledge/s Musculoske Unknown Latoya etal kill letal - Malnoske deficit: pt 11:34: RN 00 Safety risk for Safety Unknown Jonn hospitaliza 2- Lacey tion 15:15: [id number] Bed transfer PT/OT: Bed Resolve 2019-05-02 Jonn Mobility/Tr deficit: Mobility/T d 224 15:45:00 Abhijit joel sit/stand ransfer 15:15: [id number] 00 Bed transfer PT/OT: Bed Resolve 2019-05-02 Jonn Mobility/Tr deficit: Mobility/T d 224 15:45:00 Abhijit joel shower/tub ransfer 15:15: [id number] 00 Bed knowledge/s PT/OT: Bed Resolve 2019-05-02 Jonn Mobility/Tr kill Mobility/T d 224 15:45:00 Abhijit joel deficit: pt ransfer 15:15: [id number] Bed bed PT/OT: Bed Resolve 2019-05-02 Jonn Mobility/Tr mobility Mobility/T d 224 15:45:00 Abhijit joel deficit ransfer 15:15: [id number] Balance/End balance/head start coordinator PT/OT: Resolve 2019-05-02 Jonn blake rdination Balance/En d 224 15:45:00 Abhijit deficit durance 15:15: [id number] Balance/End endurance PT/OT: Resolve 2019-05-02 Jonn urance deficit Balance/En d 224 15:45:00 Lacey durance 15:15: [id number] 00 Balance/End knowledge/s PT/OT: Resolve 2019-05-02 Jonn urance kill Balance/En d 224 15:45:00 Abhijit deficit: pt durance 15:15: [id number] 00 Gait/Locomo knowledge/s PT/OT: Resolve 2019-05-02 Jonn tion kill Gait/Locom d 24 15:45:00 Lacey problems deficit: pt otion 15:15: [id number] Gait/Locomo knowledge/s PT/OT: Resolve 2019-05-02 Jonn tion kill Gait/Locom d 24 15:45:00 Lacey problems deficit: cg otion 15:15: [id number] Gait/Locomo gait PT/OT: Resolve 2019-05-02 Jonn tion deficit Gait/Locom d 04-09 15:45:00 Lacey problems otion 15:15: [id number] Activity self-care Activity Unknown Latoya deficit [...] d 04-13 09:35:00 Lacey deficit: pt 15:50: [id number] Nutrition nutritional Nutrition Resolve 2019-04-16 Jonn restriction d 04-13 09:35:00 Lacey s 15:50: [id number] Neuro knowledge/s Neuro/Emot Resolve 2019-04-26 Jonn kill ion d 04-13 15:15:00 Lacey deficit: pt 15:50: [id number] Musculoskel knowledge/s Musculoske Resolve 2019-04-19 Jonn etal kill letal d 04-13 15:32:00 Lacey deficit: pt 15:50: [id number] 00 Endo/Angelito anti-coagul Endo/Angelito Resolve 2019-04-19 Latoya ation d 04-15 15:32:00 Malnoske therapy 09:35: RN 00 Endo/Angelito knowledge/s Endo/Angelito Unknown Ngozi kill 04-15 Hillebrand deficit: pt 14:00: t 00 [id number] Cardio pacemaker/I Cardiovasc Resolve 2019-05-03 Latoya CD ular d 04-18 14:20:00 Malnoske 15:32: RN 00 Endo/Angelito knowledge/s Endo/Angelito Resolve 2019-04-19 Laotya kill d 04-18 15:32:00 Malnoske deficit: pt 15:32: RN 00 Neuro anxiety Neuro/Emot Resolve 2019-05-03 Latoya present ion d 04-22 14:20:00 Malnoske 14:40: [...] hospitaliza d 05-01 14:20:00 Lacey tion 15:45: [id number] Cardio pacemaker/I Cardiovasc Active Latoya CD [...] release buPROPion buPROPion Yes Gould Unknown Unknown HCl XL 300 HCl XL 300 04-06 Miki KATZ 24 hr [...] 500 mg 04-06 Miki KATZ tablet tablet Tylenol 325 Tylenol 325 2020- Yes Gould Unknown Unknown mg [...]
--- OUTSIDE RECORDS SUMMARY | 2019-06-01 14:52 | XMS REPORT ---
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 issue Musculoskel transfer Musculoske Unknown Latoya etal assistance letal - Malnoske required 11:34: RN 00 Musculoskel knowledge/s Musculoske Unknown Latoya etal kill letal - Malnoske deficit: pt 11:34: RN 00 Safety risk for Safety Unknown Jonn hospitaliza 2- Lacey tion 15:15: [id number] Bed transfer PT/OT: Bed Resolve 2019-05-02 Jonn Mobility/Tr deficit: Mobility/T d 224 15:45:00 Abhijit joel sit/stand ransfer 15:15: [id number] Bed transfer PT/OT: Bed Resolve 2019-05-02 Jonn Mobility/Tr deficit: Mobility/T d 224 15:45:00 Abhijit joel shower/tub ransfer 15:15: [id number] Bed knowledge/s PT/OT: Bed Resolve 2019-05-02 Jonn Mobility/Tr kill Mobility/T d 224 15:45:00 Abhijit joel deficit: pt ransfer 15:15: [id number] Bed bed PT/OT: Bed Resolve 2019-05-02 Jonn Mobility/Tr mobility Mobility/T d 224 15:45:00 Abhijit joel deficit ransfer 15:15: [id number] Balance/End balance/home health care coordinator PT/OT: Resolve 2019-05-02 Jonn blake rdination Balance/En d 224 15:45:00 Abhijit deficit durance 15:15: [id number] Balance/End endurance PT/OT: Resolve 2019-05-02 Jonn urance deficit Balance/En d 224 15:45:00 Lacey durance 15:15: [id number] Balance/End knowledge/s PT/OT: Resolve 2019-05-02 Jonn urance kill Balance/En d 224 15:45:00 Abhijit deficit: pt durance 15:15: [id number] Gait/Locomo knowledge/s PT/OT: Resolve 2019-05-02 Jonn tion kill Gait/Locom d 24 15:45:00 Lacey problems deficit: pt otion 15:15: [id number] Gait/Locomo knowledge/s PT/OT: Resolve 2019-05-02 Jonn tion kill Gait/Locom d 24 15:45:00 Lacey problems deficit: cg otion 15:15: [id number] Gait/Locomo gait PT/OT: Resolve 2019-05-02 Jonn tion deficit Gait/Locom d 04-09 15:45:00 Lacey problems otion 15:15: [id number] Activity self-care Activity Unknown Latoya deficit [...] d 04-13 09:35:00 Lacey deficit: pt 15:50: [id number] Nutrition nutritional Nutrition Resolve 2019-04-16 Jonn restriction d 04-13 09:35:00 Lacey s 15:50: [id number] Neuro knowledge/s Neuro/Emot Resolve 2019-04-26 Jonn kill ion d 04-13 15:15:00 Lacey deficit: pt 15:50: [id number] Musculoskel knowledge/s Musculoske Resolve 2019-04-19 Jonn etal kill letal d 04-13 15:32:00 Lacey deficit: pt 15:50: [id number] Endo/Angelito anti-coagul Endo/Angelito Resolve 2019-04-19 Latoya ation d 04-15 15:32:00 Malnoske therapy 09:35: RN 00 Endo/Angelito knowledge/s Endo/Angelito Unknown Ngozi kill 04-15 Hillebrand deficit: pt 14:00: t 00 [id number] Cardio pacemaker/I Cardiovasc Resolve 2019-05-03 Latoya CD ular d 04-18 14:20:00 Malnoske 15:32: RN 00 Endo/Angelito knowledge/s Endo/Angelito Resolve 2019-04-19 Latoya kill d 04-18 15:32:00 Malnoske deficit: pt [...] hospitaliza d 05-01 14:20:00 Lacey tion 15:45: [id number] Cardio pacemaker/I Cardiovasc Resolve 2019-05-15 Latoya CD ular d 05-08 14:00:00 Malnoske 10:15: RN 00 Safety risk for Safety Resolve 2019-05-09 Latoya hospitaliza d 05-08 10:15:00 Malnoske tion 10:15: RN 00 Pain knowledge/s Pain Mgmt Active Latoya kill 05-14 Jomalick deficit: pt 14:00: RN 00 Allergies, Adverse Reactions, Alerts Allergy Allergy Type Status Severity Reaction(s) Onset Inactive Treating Comments Name Date Date Clinician nickel Base Active Unknown Blisters 2019-03 Venecia Beam Ingredient -19 Medications Ordered Filled Start Stop Current Ordering Indication Dosage Frequency Signature Comments Components Medication Medication Date Date Medication? Clinician (SIG) Name Name apixaban 5 apixaban 5 2019- Yes Gould Unknown Unknown mg tablet mg tablet 04-06 Miki KATZ apixaban 5 apixaban 5 2019- Yes Brand Unknown Unknown mg tablet mg tablet 04-06 Darren KATZ cephALEXin cephALEXin 2019- Yes Brand Unknown Unknown 250 mg 250 mg 04-06 Darren KATZ capsule capsule citalopram citalopram 2019- Yes Gould Unknown Unknown 10 mg 10 mg 04-06 Miki KATZ tablet tablet Multaq 400 Multaq 400 2019- Yes Brand Unknown Unknown mg tablet mg tablet 04-06 Darren KATZ ferrous ferrous 2019- Yes Gould Unknown Unknown gluconate gluconate 04-06 Miki KATZ 324 mg 324 mg (37.5 mg (37.5 mg iron) iron) tablet tablet metoprolol metoprolol 2019- Yes Brand Unknown Unknown succinate succinate 04-06 Darren KATZ ER 50 mg ER 50 mg tablet,exte tablet,exte nded nded release 24 release 24 hr hr divalproex divalproex 2019- Yes Gould Unknown Unknown 250 mg 250 mg 04-06 Miki KATZ tablet,sukhjinder tablet,sukhjinder yed release yed release buPROPion buPROPion 2020- Yes Gould Unknown Unknown HCL XL 300 HCL XL 300 04-06 Miki KATZ 24 hr mg 24 hr tablet, tablet, extended extended release release atorvastati atorvastati 2019- Yes Gould Unknown Unknown n 10 mg n 10 mg 04-06 Miki KATZ tablet tablet glipiZIDE glipiZIDE 2019- Yes Gould Unknown Unknown ER 5 mg ER 5 mg 04-06 Miki KATZ tablet, tablet, extended extended release 24 release 24 hr hr omeprazole omeprazole 2019- 2020- Yes Gould Unknown Unknown 20 mg 20 mg 04-06 ,Miki capsule,del capsule,del ayed ayed release release metFORMIN metFORMIN 2019- 2020- Yes Gould Unknown Unknown 500 mg 500 mg 04-06 Miki KATZ tablet tablet TylenoL 325 TylenoL 325 2019- 2020- Yes Gould Unknown Unknown mg tablet mg tablet 04-06 Miki KATZ oxyCODONE 5 oxyCODONE 5 2020- Yes Brand Unknown Unknown mg tablet mg tablet 04-06 Darren KATZ glipiZIDE glipiZIDE 2020- Yes Gould Unknown Unknown ER 5 mg ER 5 mg 04-15 ,Miki tablet, tablet, extended extended release 24 release 24 hr hr gabapentin gabapentin 2020- Yes Gould Unknown Unknown 100 mg 100 mg 04-25 ,Miki capsule capsule glipiZIDE glipiZIDE 2020- Yes Gould Unknown Unknown ER 5 mg ER 5 mg 04-26 ,Miki tablet, tablet, extended extended release 24 release 24 hr hr metoprolol metoprolol 2020- Yes Brand Unknown Unknown succinate succinate 05-02 ,Darren ER 50 mg ER 50 mg tablet,exte tablet,exte nded nded release 24 release 24 hr hr Tylenol Tylenol 2019- 2020- Yes Gould Unknown Unknown Extra Extra 05-08 Miki KATZ Strength Strength 500 mg 500 mg tablet tablet oxyCODONE 5 oxyCODONE 5 2020- Yes Gould Unknown Unknown mg tablet mg tablet 05-08 Miki KATZ Vital Signs Vital Name Observation Time Observation Value Comments SYSTOLIC mm[Hg] 2019-05-15 18:11:09 120 mm[Hg] mm[Hg] Method: Sit DIASTOLIC mm[Hg] 2019-05-15 18:11:09 70 mm[Hg] mm[Hg] Method: Sit PULSE 2019-05-15 18:11:09 64 /min /min RESP RATE 2019-05-15 18:11:09 16 /min /min TEMP 2019-05-15 18:11:09 97.6 [degF] Procedures This patient has no known procedures. Results This patient has no known results.
--- OUTSIDE RECORDS SUMMARY | 2019-06-01 14:52 | XMS REPORT | Continuity of Care Document ---
:1940 External Reference #:[id number] Author Name Miki Gould M.D. (transmitted by agent of provider Izzy Bishop) Address [address] [place] [id number] Problems Description No Information Available Social History [...] P. 03/14/2019 100mg bedtime and up to Shay [...] 04/15/2018 [id number] Powder oz of water. Shay, RSixto Bupropion Take 1 Tablet By 90tabs Carlos [...] CPT Code Status Date Vaccine Lot # [id number] Given 10/26/2017 Influenza Vaccine High Dose PF [id number] Given 03/14/2017 Prevnar-13 Pneumococcal Conjugate Vaccine [id number] Given 12/15/2016 Influenza Virus Vaccine, Quadrivalent, 3 Yr > Quad, Preserv Free 92157 Given 12/30/2014 Influenza Virus Vaccine, Quadrivalent, 3 Yr > Quad, Preserv Free 39374 Given 11/19/2011 Influenza Virus Vaccine, Quadrivalent, 3 Yr > Quad, Preserv Free 98928 Given 12/04/2008 Pneumovax 23 (PPSV23) 65+ years [...] (607)- - Fingerstick Iron & Iron 03/31/2019 [facility] Iron 24 g/dL Low 50-212 Binding [phone] Capacity Unsaturated Iron Binding < 453 g/dL Total Iron Binding Capacity 468 g/dL High 250-450 Transferrin 334 mg/dL Normal 203-362 % Iron Saturation 5 % Low 15-55 Laboratory test 03/31/2019 [facility] Magnesium 1.1 mg/dL Low 1.9-2.7 finding [phone] Troponin-I (TnI) 0.01 ng/mL <0.03 1 TSH (Thyroid Stimulating Horm) 3.88 mcIU/mL Normal 0.34-5.60 Ferritin 5.0 ng/mL Low 11-307 Comp Metabolic 03/31/2019 [facility] Sodium 138 mmol/ L Normal 135-145 Panel [phone] Potassium 4.3 mmol/L Normal 3.5-5.0 Chloride 106 [...] Egfr 40.5 >60 2 Laboratory test 03/31/2019 [facility] Lactic Acid 1.5 mmol/L Normal 0.5-2.0 3 finding [phone] B-Type Natriuretic Peptide BNP 177 pg/mL High <=100 CBC Auto 03/31/2019 [facility] White Blood 10.4 10^3/ uL Normal 3.5-10.8 Diff [phone] Count Red Blood Count 4.01 10^6/uL Normal [...] Blood Cells % 0.0 Laboratory test 03/31/2019 [facility] Partial 33.0 Normal 26.0-38.0 finding [phone] Thrombo seconds Time PTT D Dimer Quantitative 320 ng/mL High Less Than 230 4 Inr/Protime 03/31/2019 [facility] Inr 1.11 High 0.82-1.09 5 [phone] Laboratory test 03/31/2019 [facility] Troponin-I 0.02 <0.03 6 finding [phone] (TnI) ng/mL CBC Auto Diff 03/14/2019 [facility] White 5.6 Normal 3.5-10.8 [phone] Blood 10^3/uL Count Red Blood Count 3.89 [...] Blood Cells % 0.0 Comp Metabolic 03/14/2019 [facility] Sodium 137 mmol/ L Normal 135-145 Panel [phone] Potassium 4.7 mmol/L Normal 3.5-5.0 Chloride 104 [...] Egfr 42.8 >60 7 Laboratory test 03/14/2019 [facility] Hemoglobin A1c 7.4 % High 4.0-5.6 8 finding [phone] (Glyco HGB) TSH (Thyroid Stim Horm) 2.77 mcIU/mL Normal 0.34-5.60 9 Lipid Profile 03/14/2019 [facility] Triglycerides 98 mg/dL 10 (Trig/Chol/HDL) [phone] Cholesterol 109 mg/dL 11 HDL Cholesterol 43.5 mg/dL 12 LDL Cholesterol 46 mg/dL 13 1 Troponin-I testing on Plasma Separator Tubes (PST) has a known false positive rate of 0.20-0.40%. All positive troponins reflex immediately to secondary confirmatory testing. Using the [employer] 800 Access Immunoassay systems, the 99th percentile [...] 5 Kidney failure <15 (or dialysis) 3 [facility] Severe Sepsis and Septic Shock Management Bundle [...] immediately to secondary confirmatory testing. Using the [employer] DxI 800 Access Immunoassay systems, the 99th [...] in selective patients <6.0%. Please refer to [place] [employer] diabetic care guidelines for further information. 9 [id number] Desirable: <150 Borderline High: 150-199 High: [...] Office Visit 04/27/2019 2:30p Main Office Carlos Tomas M54.31 Sciatica, right MD side F31.81 Bipolar [...] am - Miki Gould M.D. at [id number] - Miki Gould M.D.M54.31 Sciatica, right sideComments:By CT scan and she had no evidence of fracture of her spine or hips.She could not have MRI of her hip because of the pacemaker but this will be possible in 6 weeks if necessary.She is now ambulating reasonably well in her apartment but does not have adequate pain control.We need to avoid NSAIDs given her anticoagulation.We discussed Tylenol as well as daily limits.We also discussed more frequent use of oxycodone as that does seem to provide her good relief for several hours with 5 mg.We discussed the need to watch for constipation.Recommendations:Lets repeat the steroid pills. Take 2 glipizide every morning while 1 or 2 oxycodone every 4 hours as needed. Watch for constipation. Never take more than 8 tylenol in a day.I49.5 Sick sinus syndromeComments:Doing well after pacemaker and Multivite.Given atrial fibrillation she is also now anticoagulated.Overconcern of QT prolongation her citalopram has been decreased and so far she is not having any concerns about depression.For now I want to hold on any further decreases but we will need to consider this going forward.I48.0 Paroxysmal atrial fibrillationComments:Currently no symptoms to suggest decompensation.Continue anticoagulation.I42.9 Cardiomyopathy, unspecifiedComments:As above.Plan is for stress testing as an outpatient. Functional Status Description No Information Available Mental Status Description No Information Available Referrals Description No Information Available
--- OUTSIDE RECORDS SUMMARY | 2019-06-01 14:52 | XMS REPORT ---
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 Musculoskel transfer Musculoske Unknown Latoya etal assistance letal - Malnoske required 11:34: RN 00 Musculoskel knowledge/s Musculoske Unknown Latoya etal kill letal - Malnoske deficit: pt 11:34: RN 00 Safety risk for Safety Unknown Jonn hospitaliza 2- Lacey tion 15:15: [id number] Bed transfer PT/OT: Bed Resolve 2019-05-02 Jonn Mobility/Tr deficit: Mobility/T d 224 15:45:00 Abhijit joel sit/stand ransfer 15:15: [id number] Bed transfer PT/OT: Bed Resolve 2019-05-02 Jonn Mobility/Tr deficit: Mobility/T d 224 15:45:00 Abhijit joel shower/tub ransfer 15:15: [id number] Bed knowledge/s PT/OT: Bed Resolve 2019-05-02 Jonn Mobility/Tr kill Mobility/T d 224 15:45:00 Abhijit joel deficit: pt ransfer 15:15: [id number] 00 Bed bed PT/OT: Bed Resolve 2019-05-02 Jonn Mobility/Tr mobility Mobility/T d 224 15:45:00 Abhijit joel deficit ransfer 15:15: [id number] Balance/End balance/supervisor cooler service PT/OT: Resolve 2019-05-02 Jonn blake rdination Balance/En d 224 15:45:00 Abhijit deficit durance 15:15: [id number] Balance/End endurance PT/OT: Resolve 2019-05-02 Jonn urance deficit Balance/En d 224 15:45:00 Lacey durance 15:15: [id number] Balance/End knowledge/s PT/OT: Resolve 2019-05-02 Jonn urance kill Balance/En d 224 15:45:00 Abhijit deficit: pt durance 15:15: [id number] Gait/Locomo knowledge/s PT/OT: Resolve 2019-05-02 Jonn tion kill Gait/Locom d 24 15:45:00 Lacey problems deficit: pt otion 15:15: [id number] Gait/Locomo knowledge/s PT/OT: Resolve 2019-05-02 Jonn tion kill Gait/Locom d 24 15:45:00 Lacey problems deficit: cg otion 15:15: [id number] Gait/Locomo gait PT/OT: Resolve 2019-05-02 Jonn tion deficit Gait/Locom d 04-09 15:45:00 Lacey problems otion 15:15: [id number] Activity self-care Activity Unknown Latoya deficit 04-12 Malnoske 12:50: RN 00 Safety risk for Safety Resolve 2019-04-12 Latoya hospitaliza d 04-12 12:50:00 Malnoske tion 12:50: RN 00 Safety risk for Safety Resolve 2019-04-19 Sheila White hospitaliza d 04-13 15:32:00 tion 10:45: 22 Safety fall risk Safety Resolve 2019-04-19 Sheila White factor d 04-13 15:32:00 present 10:45: 22 Endo/Angelito knowledge/s Endo/Angeliot Resolve 2019-04-16 Jonn kill d 04-13 09:35:00 Lacey deficit: pt 15:50: [id number] Nutrition nutritional Nutrition Resolve 2019-04-16 Jonn restriction d 04-13 09:35:00 Lacey s 15:50: [id number] Neuro knowledge/s Neuro/Emot Resolve 2019-04-26 Jonn kill ion d 04-13 15:15:00 Lacey deficit: pt 15:50: [id number] Musculoskel knowledge/s Musculoske Resolve 2019-04-19 Jonn etal kill letal d 04-13 15:32:00 Lacey deficit: pt 15:50: [id number] Endo/Angelito anti-coagul Endo/Angelito Resolve 2019-04-19 Latoya ation d 04-15 15:32:00 Malnoske therapy 09:35: RN 00 Endo/Angelito knowledge/s Endo/Angelito Unknown Ngozi kill 04-15 Hillebrand deficit: pt 14:00: t 00 [id number] Cardio pacemaker/I Cardiovasc Resolve 2019-05-03 Latoya CD [...] hospitaliza d 05-01 14:20:00 Lacey tion 15:45: [id number] Cardio pacemaker/I Cardiovasc Resolve 2019-05-15 Latoya [...]
--- OUTSIDE RECORDS SUMMARY | 2019-06-01 14:53 | XMS REPORT | Continuity of Care Document ---
:1940 External Reference #:[id number] Author Name Yael Davis N.Abhi Address [facility] [address] [facility] [address] [place] [address] Care Team Providers Name Role Phone Shree Fajardo MD - Internal Care Team Information Reimbursement Consultant Medicine Miki Gould M.D. - Family Medicine Care Team Information Reimbursement Consultant [phone] Problems Active Problems Provider Date Tachycardia-bradycardia Yael Davis N.PNorma Onset: 04/13/2019 Paroxysmal atrial fibrillation Yael Davis N.PNorma Onset: 04/13/2019 Cardiac pacemaker in situ Yael Davis, N.PNorma Onset: 04/13/2019 Cardiomyopathy Yael Davis, N.PNorma Onset: 04/13/2019 Social History Type Date Description Comments Sex Unknown Allergies, Adverse Reactions, Alerts Active Allergies Reaction Severity Comments Date NKDA 04/13/2019 Nickel Blisters on body 04/13/2019 Medications Active Medications SIG Qnty Indications Ordering Date Provider Metformin HCL 1 by mouth twice Unknown 500mg a day Tablets Bupropion 1 by mouth every Unknown Hydrochloride ER (XL) day 300mg Tablets ER 24HR Multaq 1 by mouth twice 180tabs Yael Davis, 400mg Tablets a day N.P. Atorvastatin Calcium 1 by mouth every Unknown day 10mg Tablets Eliquis 1 by mouth twice 180tabs Yael Davis, 5mg Tablets a day N.P. Ferrous Gluconate 1 by mouth every Unknown day 324(38Fe) mg Tablets Divalproex Sodium 1 by mouth twice Unknown 250mg a day Tablets DR Cephalexin 1 tab 3 times a Unknown 250mg day for 3 days Capsules Glipizide 1 tab daily in Unknown 5mg Tablets the am Tylenol 8 Hour take every 6 Unknown 650mg hours as needed Tablets ER for pain, headache or fever HM Esomeprazole take two capsules Unknown Magnesium Delayed 1/2 before Release breakfast 20mg Capsules Metoprolol Succinate 1 by mouth every 90tabs Yael Davis, ER day N.P. 50mg Tablets ER 24HR Citalopram 1 by mouth every Unknown Hydrobromide day 10mg Tablets Omeprazole 1 by mouth every Unknown 20mg day Capsules Gabapentin 1 capsule three Unknown 100mg times daily. Capsules Medications Administered in Office Medication SIG Qnty Indications Ordering Provider Date Celestone 3 mg and 3mg Juani Velazco, 04/28/2010 Injection M.DNorma Immunizations Description No Information Available Vital Signs Date Vital Result Comment 05/01/2019 2:26pm Height 60 inches 5'0" Weight 209.00 lb without shoes Heart Rate 62 /min BP Systolic Sitting 120 mmHg Ra BP Diastolic Sitting 62 mmHg Ra BP Systolic Standing 120 mmHg Ra BP Diastolic Standing 60 mmHg Ra BMI (Body Mass Index) 40.8 kg/m2 Ejection Fraction 45-50% Echo 04/01/2019 04/13/2019 11:07am Height 60 inches 5'0" Weight 210.00 lb with shoes Heart Rate 60 /min BP Systolic Sitting 120 mmHg Ra BP Diastolic Sitting 60 mmHg Ra BP Systolic Standing 120 mmHg Ra BP Diastolic Standing 58 mmHg Ra BMI (Body Mass Index) 41.0 kg/m2 Ejection Fraction 45-50% Echo 04/01/2019 Results Description No Information Available Procedures Date Code Description Status 04/13/2019 75502 Pace Maker Eval W/Iterative Adjment Dual Lead Completed 04/13/2019 99903 Pace Maker Eval W/Iterative Adjment Dual Lead Completed 04/13/2019 80169 EKG Tracing & Interpretation Completed 04/03/2019 35755 Perm Pacemaker Av Sequential Atrial And Ventricular Completed 04/01/2019 83224 ECHO Transthorasic Realtime 2D W Doppler & Color Flow Hosp Completed Medical Devices Description No Information Available Encounters Type Date Location Provider Dx Diagnosis Office Visit 05/01/2019 [facility] Yael Davis, Z95.0 Presence of 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 I48.0 Paroxysmal atrial Of Stock Broker Supervisor Foster, N.P. fibrillation Z95.0 Presence of cardiac pacemaker I49.5 Sick sinus syndrome I42.9 Cardiomyopathy, unspecified Office Visit 04/03/2019 11:28a [facility] Liane D50.9 Iron deficiency Assoc,daina Khalil, GEENA anemia, Hospitalists unspecified E11.22 Type 2 diabetes mellitus w diabetic chronic kidney disease N18.9 Chronic kidney disease, unspecified Office Visit 04/02/2019 11:28a Intensivists Chandrakant Castillo, I48.91 Unspecified atrial M.D. fibrillation E83.42 Hypomagnesemia Office Visit 04/01/2019 3:55p [facility] Sara Velasquez, R06.02 Shortness of Of [facility] M.D. 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, PROFESSOR OF LITERATURE disease, stage 4 (severe) D50.9 Iron deficiency anemia, unspecified R29.6 Repeated falls Assessments Date Code Description Provider 05/01/2019 Z95.0 Presence of cardiac pacemaker Yael S. Ryan, N.P. 05/01/2019 I48.0 Paroxysmal atrial fibrillation Yael S. Foster, N.P. 05/01/2019 I42.9 Cardiomyopathy, unspecified Yael S. Foster, N.P. 05/01/2019 I49.5 Sick sinus syndrome Yael S. Ryan, N.P. 05/01/2019 D50.9 Iron deficiency anemia, unspecified Yael S. Foster, N.P. 04/13/2019 Z95.0 Presence of cardiac pacemaker Sara Velasquez M.D. 04/13/2019 Z95.0 Presence of cardiac pacemaker Ica Pacer Schedule 04/13/2019 I48.0 Paroxysmal atrial fibrillation Yaelpola Davis, N.P. 04/13/2019 Z95.0 Presence of cardiac pacemaker Yael Davis, N.P. 04/13/2019 I49.5 Sick sinus syndrome Yael Davis, N.P. 04/13/2019 I42.9 Cardiomyopathy, unspecified Yael Davis, N.P. 04/04/2019 I48.0 Paroxysmal atrial fibrillation Liane O'bernice, PA-C 04/04/2019 D50.9 Iron deficiency anemia, unspecified Liane O'bernice, PA-C 04/04/2019 R29.6 Repeated falls Liane O'bernice, PA-C 04/04/2019 M25.551 Pain in right hip Liane O'bernice, PA-C 04/04/2019 E11.22 Type 2 diabetes mellitus with diabetic Liane O'bernice, PA -C chronic kidney disease 04/04/2019 N18.9 Chronic kidney disease, unspecified Liane O'bernice, PA-C 04/03/2019 I49.5 Sick sinus syndrome Darren Loving M.D. 04/03/2019 D50.9 Iron deficiency anemia, unspecified Liane O'bernice, PA-C 04/03/2019 E11.22 Type 2 diabetes mellitus with diabetic Liane O'bernice, PA -C chronic kidney disease 04/03/2019 N18.9 Chronic kidney disease, unspecified Liane O'bernice, PA-C 04/02/2019 I48.91 Unspecified atrial fibrillation Chandrakant Castillo M.D. 04/02/2019 E83.42 Hypomagnesemia Chandrakant Castillo M.D. 04/01/2019 R06.02 Shortness of breath Sara Velasquez M.D. 04/01/2019 I48.0 Paroxysmal atrial fibrillation Sara Velasquez M.D. 04/01/2019 I49.5 Sick sinus syndrome Sara Velasquez M.D. 04/01/2019 R29.6 Repeated falls Sara Velasquez M.D. 04/01/2019 N18.4 Chronic kidney disease, stage 4 Bailey Stout NP (severe) 04/01/2019 D50.9 Iron deficiency anemia, unspecified Bailey Stout, MARISA 04/01/2019 R29.6 Repeated falls Bailey Stout, MARISA 03/31/2019 M25.551 Pain in right hip Harman Lopez MD 03/31/2019 E83.42 Hypomagnesemia Harman Lopez MD 03/31/2019 R19.7 Diarrhea, unspecified Harman Lopez MD 03/31/2019 W19.xxxA Unspecified fall, initial encounter Harman Lopez MD Plan of Treatment Future Appointment(s):07/05/2019 2:00 pm - [facility] ECHO Schedule at [facility] Of [facility]07/17/2019 3:00 pm - Yael Davis, N.P. at [facility] Of [facility]05/01/2019 - Yael Davis, N.P.Z95.0 Presence of cardiac pacemakerFollow up:PO 3 months Echo 06/2019 Try to move OV w/ SF to for 2019Recommendations:Pacer working well. No afib on pacemaker.I48.0 Paroxysmal atrial bmlcwdnfanrkI55.9 Cardiomyopathy, fxnfwwmtikbU94.5 Sick sinus syndromeRecommendations:You can take Extra Strength Tylenol 500mg Take 2 tab 2- 3x daily for pain.D50.9 Iron deficiency anemia, unspecified Functional Status Description No Information Available Mental Status Description No Information Available Referrals Description No Information Available
--- OUTSIDE RECORDS SUMMARY | 2019-06-01 14:53 | XMS REPORT ---
:1940 Author Organization [facility] Care Team Providers Name Role Phone Unavailable [...] Latoya disorder, disorder, [place] unspecified unspecified RN prison prison Diagnosis Active Latoya (current) (current) [place] use of use of RN anticoagula anticoagula nts nts Pain frequent Pain Mgmt Resolve 2019-04-16 Julieta pain d 04-06 09:35:00 Vallely 09:15: 00 Pain knowledge/s Pain Mgmt Resolve 2019-04-16 Julieta kill d 04-06 09:35:00 Vallely deficit: pt 09:15: 00 Cardio knowledge/s Cardiovasc Active Julieta oneill ular 04-06 Vallely deficit: pt 09:15: 00 Cardio pacemaker/I Cardiovasc Resolve 2019-04-16 Julieta CASTELLANO ular d 04-06 09:35:00 Vallely 09:15: 00 Respiratory dyspnea Respirator Resolve 2019-04-12 Julieta present y d 04-06 12:50:00 Vallely 09:15: 00 Endo/Angelito knowledge/s Endo/Angelito Resolve 2019-04-12 Julieta kill d 04-06 12:50:00 Vallely deficit: pt 09:15: 00 Endo/Angelito anti-coagul Endo/Agnelito Resolve 2019-04-12 Julieta ation d 04-06 12:50:00 Vallely therapy 09:15: 00 Sensory impaired Sensory Active Julieta hearing 04-06 Vallely 09:15: 00 Integument surgical Integument Resolve 2019-04-12 Julieta wound d 04-06 12:50:00 Vallely present 09:15: 00 Integument knowledge/s Integument Resolve 2019-04-12 Julieta kill d 04-06 12:50:00 Vallely deficit: pt 09:15: 00 Nutrition knowledge/s Nutrition Resolve 2019-04-16 Juleita kill d 04-06 09:35:00 Vallely deficit: pt 09:15: 00 Nutrition nutritional Nutrition Resolve 2019-04-12 Julieta restriction d 04-06 12:50:00 Vallely s 09:15: 00 Elimination diarrhea Eliminatio Resolve 2019-04-12 Julieta n d 04-06 12:50:00 Vallely 09:15: 00 Elimination knowledge/s Eliminatio Resolve 2019-04-12 Julieta kill n d 04-06 12:50:00 Vallely deficit: pt 09:15: 00 Neuro confusion Neuro/Emot Active Julieta present ion 04-06 Vallely 09:15: 00 Neuro knowledge/s Neuro/Emot Resolve [...] Vallely required 09:15: 00 Medication knowledge/s Meds Active Julieta kill 04-06 Vallely deficit: pt 09:15: 00 Medication potential Meds Active Julieta clinically 04-06 Vallely significant 09:15: medication 00 issue Musculoskel [...] Services 09:15: 00 Cardio knowledge/s Cardiovasc Unknown Latoya kill ular 04-09 Malnoske deficit: pt 11:34: RN 00 Respiratory dyspnea Respirator Unknown Latoya present y 04-09 [place] 11:34: RN 00 Endo/Angelito knowledge/s Endo/Angelito [...] 11:34: RN 00 Safety knowledge/s Safety Unknown 2020-0 Latoya kill 2-24 [place] deficit: pt 11:34: RN 00 Safety can be left Safety Unknown 2019-0 Latoya alone for 2-24 Malnoske only short 11:34: RN periods 00 Medication oral med Meds Unknown 2019-0 Latoya assistance 2-24 [place] required 11:34: RN 00 Medication knowledge/s Meds Unknown 2019-0 Latoya kill 2-24 [place] deficit: pt 11:34: RN 00 Medication potential Meds Unknown 2019-0 Latoya clinically 2-24 [place] 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 Musculoskel transfer Musculoske Unknown 2020-0 Latoya etal assistance letal 04-09 Malnoske required 11:34: RN 00 Musculoskel knowledge/s Musculoske Unknown Latoya etal kill letal 04-09 Malnoske deficit: pt 11:34: RN 00 Safety risk for Safety Unknown Jonn hospitaliza 04-09 Lacey tion 15:15: [id number] Bed transfer PT/OT: Bed Active Jonn Mobility/Tr deficit: Mobility/T 2-24 Abhijit ansfer sit/stand ransfer 15:15: [id number] Bed transfer PT/OT: Bed Active Jonn Mobility/Tr deficit: Mobility/T 224 Abhijit ansfer shower/tub ransfer 15:15: [id number] Bed knowledge/s PT/OT: Bed Active Jonn Mobility/Tr kill Mobility/T 04-09 Lacey ansfer deficit: pt ransfer 15:15: [id number] 00 Bed bed PT/OT: Bed Active Jonn Mobility/Tr mobility Mobility/T 04-09 Lacey ansfer deficit ransfer 15:15: [id number] Balance/End balance/pharmacy care coordinator PT/OT: Active Jonn urance rdination Balance/En 2- Abhijit deficit durance 15:15: [id number] Balance/End endurance PT/OT: Active Jonn urance deficit Balance/En - Lacey durance 15:15: [id number] Balance/End knowledge/s PT/OT: Active Jonn urance kill Balance/En - Abhijit deficit: pt durance 15:15: [id number] Gait/Locomo knowledge/s PT/OT: Active Jonn tion kill Gait/Locom 2-24 Lacey problems deficit: pt otion 15:15: [id number] Gait/Locomo knowledge/s PT/OT: Active Jonn tion kill Gait/Locom 2-24 Lacey problems deficit: cg otion 15:15: [id number] Gait/Locomo gait PT/OT: Active Jonn tion deficit Gait/Locom 2-24 Lacey problems otion 15:15: [id number] Activity self-care Activity Unknown Latoya deficit 04-12 Malnoske 12:50: RN 00 Safety risk for Safety Resolve 2019-04-12 Latoya hospitaliza d 04-12 12:50:00 Malnoske tion 12:50: RN 00 Safety risk for Safety Resolve 2019-04-19 Sheila Raymond hospitaliza d 04-13 15:32:00 tion 10:45: 22 Safety fall risk Safety Resolve 2019-04-19 Sheila White factor d 04-13 15:32:00 present 10:45: 22 Endo/Angelito knowledge/s Endo/Angelito Resolve 2019-04-16 Jonn kill d 04-13 09:35:00 Lacey deficit: pt 15:50: [id number] Nutrition nutritional Nutrition Resolve 2019-04-16 Jonn restriction d 04-13 09:35:00 Lacey s 15:50: [id number] Neuro knowledge/s Neuro/Emot Resolve 2019-04-26 Jonn kill ion d 04-13 15:15:00 Lacey deficit: pt 15:50: [id number] Musculoskel knowledge/s Musculoske Resolve 2019-04-19 Jonn etal kill letal d 04-13 15:32:00 Lacey deficit: pt 15:50: [id number] Endo/Angelito anti-coagul Endo/Angelito Resolve 2019-04-19 Latoya ation d 04-15 15:32:00 Malnoske therapy 09:35: RN 00 Endo/Angelito knowledge/s Endo/Angelito Unknown Ngozi oneill 04-15 Hillebrand deficit: pt 14:00: t 00 [id number] Cardio pacemaker/I Cardiovasc Active Latoya CD ular 04-18 Malnoske 15:32: RN 00 Endo/Angelito knowledge/s Endo/Angelito Resolve 2019-04-19 Latoya kill d 04-18 15:32:00 Malnoske deficit: pt 15:32: RN 00 Neuro anxiety Neuro/Emot Active Latoya present ion 04-22 Malnoske 14:40: RN 00 Safety risk for [...] tion 15:05: RN 00 Musculoskel requires Musculoske Active Latoya etal human letal 04-29 Malnoske assist to 15:05: RN leave home 00 Allergies, Adverse Reactions, Alerts Allergy Allergy [...] mg tablet 04-06 Darren KATZ cephALEXin cephALEXin 2020- Yes Brand Unknown Unknown 250 mg 250 [...] mg iron) iron) tablet tablet metoprolol metoprolol Yes Brand Unknown Unknown succinate succinate 04-06 Darren KATZ ER 50 mg ER 50 mg tablet,exte tablet,exte nded nded release 24 release 24 hr hr divalproex divalproex Yes Gould Unknown Unknown 250 mg 250 mg 04-06 Miki KATZ tablet,sukhjinder tablet,sukhjinder yed release yed release buPROPion buPROPion 2020-0 Yes Gould Unknown Unknown HCl XL 300 HCl XL 300 - ,Miki mg 24 hr mg 24 hr tablet, tablet, extended extended release release atorvastati atorvastati 2019-0 Yes Gould Unknown Unknown n 10 mg n 10 mg 04-06 ,Miki tablet tablet glipiZIDE glipiZIDE 2020- Yes Gould Unknown Unknown ER 5 mg ER 5 mg 04-06- ,Miki tablet, tablet, extended extended release 24 release 24 hr hr omeprazole omeprazole 2019-0 Yes Gould Unknown Unknown 20 mg 20 mg 04-06 ,Miki capsule,del capsule,del ayed ayed release release metFORMIN metFORMIN 2019- Yes Gould Unknown Unknown 500 mg 500 mg 04-06 ,Mkii tablet tablet Tylenol 325 Tylenol 325 2019- Yes Gould Unknown Unknown mg tablet mg tablet 04-06 Miki KATZ oxyCODONE 5 oxyCODONE 5 2020- Yes Brand Unknown Unknown mg tablet mg tablet 04-06 Darren KATZ glipiZIDE glipiZIDE 2019-0 2020- Yes Gould Unknown Unknown ER 5 mg ER 5 mg 04-15- ,Miki tablet, tablet, extended extended release 24 release 24 hr hr gabapentin gabapentin 2019- Yes Gould Unknown Unknown 100 mg 100 mg - ,Miki capsule capsule glipiZIDE glipiZIDE 2019-0 Yes Gould Unknown Unknown ER 5 mg ER 5 mg - ,Miki tablet, tablet, extended extended release 24 release 24 hr hr Vital Signs Vital Name Observation Time Observation Value Comments SYSTOLIC mm[Hg] 2019-05-01 18:10:55 134 mm[Hg] mm[Hg] Method: Sit DIASTOLIC mm[Hg] 2019-05-01 18:10:55 70 mm[Hg] mm[Hg] Method: Sit PULSE 2019-05-01 18:10:55 60 /min /min RESP RATE 2019-05-01 18:10:55 16 /min /min TEMP 2019-05-01 18:10:55 98.2 [degF] Procedures This patient has no known procedures. Results This patient has no known results.
--- OUTSIDE RECORDS SUMMARY | 2019-06-01 14:53 | XMS REPORT | Continuity of Care Document ---
:1940 External Reference #:[id number] Author Name Yael Davis N.P. (transmitted by agent of provider Shelley Lucas) Address [address] 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 - Family Medicine Care Team Information Senior Wind Turbine Technician Problems Active Problems Provider Date Tachycardia-bradycardia Yael Davis N.PNorma Onset: 04/13/2019 Paroxysmal atrial fibrillation Yael Davis N.PNorma Onset: 04/13/2019 Cardiac pacemaker in situ Yael Davis N.PNorma Onset: 04/13/2019 Cardiomyopathy Yael Davis N.PNorma Onset: 04/13/2019 Social History Type Date [...] Information Available Procedures Date Code Description Status 05/01/2019 90457 Pace Maker Eval W/Iterative Adjment Dual Lead Completed 04/13/2019 26922 Pace Maker Eval W/Iterative Adjment Dual Lead Completed 04/13/2019 84334 Pace Maker Eval W/Iterative Adjment Dual Lead Completed 04/13/2019 82808 EKG Tracing & Interpretation Completed 04/04/2019 63852 EKG, Interpretation Only Completed 04/03/2019 09120 EKG, Interpretation Only Completed 04/03/2019 36155 Perm Pacemaker Av Sequential Atrial And Ventricular Completed 04/01/2019 65088 EKG, Interpretation Only Completed 04/01/2019 10866 ECHO Transthorasic Realtime 2D W Doppler & Color Flow Hosp Completed Medical Devices Description No Information Available Encounters Type Date Location Provider Dx Diagnosis Office Visit 05/01/2019 [facility] Yael Ortega. Foster, Z95.0 Presence of 3:00p Of Patient Support Assistant N.P. cardiac pacemaker I48.0 Paroxysmal atrial fibrillation I42.9 Cardiomyopathy, unspecified I49.5 Sick sinus syndrome D50.9 Iron deficiency anemia, unspecified Office Visit 04/13/2019 11:00a [facility] Yael S. I48.0 Paroxysmal atrial Of Patient Support Assistant Foster, N.P. fibrillation Z95.0 Presence of cardiac pacemaker I49.5 Sick sinus syndrome I42.9 Cardiomyopathy, unspecified Office Visit 04/04/2019 [facility] Liane I48.0 Paroxysmal atrial 11:30a Assoc,daina Khalil PA-C fibrillation Hospitalists D50.9 Iron deficiency anemia, unspecified R29.6 Repeated falls M25.551 Pain in right hip E11.22 Type 2 diabetes mellitus w diabetic chronic kidney disease N18.9 Chronic kidney disease, unspecified Office Visit 04/03/2019 11:28a [facility] Liane D50.9 Iron deficiency Assoc,daina Khalil PA-C anemia, Hospitalists unspecified E11.22 Type 2 diabetes mellitus w diabetic chronic kidney disease N18.9 Chronic kidney disease, unspecified Office Visit 04/02/2019 11:28a [facility] Chandrakant Castillo, I48.91 Unspecified atrial M.D. fibrillation E83.42 Hypomagnesemia Office Visit 04/01/2019 3:55p [facility] Sara Velasquez, R06.02 Shortness of Of Patient Support Assistant M.D. 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 Foster, N.P. 05/01/2019 I48.0 Paroxysmal atrial fibrillation Ica Pacer Schedule 05/01/2019 I48.0 Paroxysmal atrial fibrillation Yael S. Foster, N.P. 05/01/2019 I42.9 Cardiomyopathy, unspecified Ica Pacer Schedule 05/01/2019 I42.9 Cardiomyopathy, unspecified Yael S. Foster, N.P. 05/01/2019 I49.5 Sick sinus syndrome Ica Pacer Schedule 05/01/2019 I49.5 Sick sinus syndrome Yael S. Foster, N.P. 05/01/2019 D50.9 Iron deficiency anemia, unspecified Yael S. Foster, N.P. 04/13/2019 Z95.0 Presence of cardiac pacemaker Sara Velasquez M.D. 04/13/2019 Z95.0 Presence of cardiac pacemaker Ica Pacer Schedule 04/13/2019 I48.0 Paroxysmal atrial fibrillation Yael S. Foster, N.P. 04/13/2019 Z95.0 Presence of cardiac pacemaker Yael S. Foster, N.P. 04/13/2019 I49.5 Sick sinus syndrome Yael S. Foster, N.P. 04/13/2019 I42.9 Cardiomyopathy, unspecified Yael S. Foster, N.P. 04/04/2019 R94.31 Abnormal electrocardiogram [ECG] [EKG] Yovanny Castillo DO [facility] 04/04/2019 I48.0 Paroxysmal atrial fibrillation Liane Khalil PA-C 04/04/2019 D50.9 Iron deficiency anemia, unspecified Liane Khalil PA-C 04/04/2019 R29.6 Repeated falls Liane Khalil PA-C 04/04/2019 M25.551 Pain in right hip Liane Khalil PA-C 04/04/2019 E11.22 Type 2 diabetes mellitus with diabetic Liane O'bernice, PA -C chronic kidney disease 04/04/2019 N18.9 Chronic kidney disease, unspecified Liane O'bernice, PA-C 04/03/2019 I48.91 Unspecified atrial fibrillation Yovanny Castillo, DO [facility] 04/03/2019 I49.5 Sick sinus syndrome Darren Loving M.D. 04/03/2019 D50.9 Iron deficiency anemia, unspecified Liane O'bernice, PA-C 04/03/2019 E11.22 Type 2 diabetes mellitus with diabetic Liane O'bernice, PA -C chronic kidney disease 04/03/2019 N18.9 Chronic kidney disease, unspecified Liane O'bernice, PA-C 04/02/2019 I48.91 Unspecified atrial fibrillation Chandrakant Castillo M.D. 04/02/2019 E83.42 Hypomagnesemia Chandrakant Castillo M.D. 04/01/2019 I45.10 Unspecified right bundle-branch block Yovanny Castillo, DO [facility] 04/01/2019 R06.02 Shortness of breath Sara Velasquez M.D. 04/01/2019 I48.0 Paroxysmal atrial fibrillation Sara Velasquez M.D. 04/01/2019 I49.5 Sick sinus syndrome Sara Velasquez M.D. 04/01/2019 R29.6 Repeated falls Sara Velasquez M.D. 04/01/2019 N18.4 Chronic kidney disease, stage 4 Bailey Stout NP (severe) 04/01/2019 D50.9 Iron deficiency anemia, unspecified Bailey Stout NP 04/01/2019 R29.6 Repeated falls Bailey Stout NP 03/31/2019 M25.551 Pain in right hip Harman Lopez MD 03/31/2019 E83.42 Hypomagnesemia Harman Lopez MD 03/31/2019 R19.7 Diarrhea, unspecified Harman Lopez MD 03/31/2019 W19.xxxA Unspecified fall, initial encounter Harman Lopez MD Plan of Treatment Future Appointment(s):07/17/2019 11:00 am - [facility] Pacer Schedule at [facility]07/17/2019 11:30 am - Sara Velasquez M.D. at [facility]07/05/2019 2:00 pm - [facility] ECHO Schedule at [facility]2019 - Yael Davis N.P.I48.0 Paroxysmal atrial fibrillationRecommendations: Continue Metoprolol, Multaq and LcwcyhpJ89.0 Presence of cardiac pacemakerFollow up:PO/OV 3-4 weeks LS or SF OV LS 3 mo (echo prior) Recommendations:Pacing at the top 99% of the time; <0.1% at the bottom No arrhythmias seen. Keep arm at below level of elbow until pacer puwsoS32.5 Sick sinus tjtfqirlP59.9 Cardiomyopathy, unspecifiedNew Orders:Echocardiogram, Limited Study, Ordered: 04/13/19Recommendations:Heart function 45-50% in the hospital We will recheck this in a few months. Functional Status Description No Information Available Mental Status Description No Information Available Referrals Description No Information Available
--- OUTSIDE RECORDS SUMMARY | 2019-06-01 14:53 | XMS REPORT ---
:1940 Author Organization [facility] Care Team Providers Name Role Phone Unavailable Unavailable Unavailable Problems Condition Condition Condition Status Onset Resolution Last Treating Comments Name Details Category Date Date Treatment Clinician Date Sick sinus Sick sinus Diagnosis Active Latoya syndrome syndrome - Malnoske RN Presence of Presence of Diagnosis Active Latoya cardiac cardiac 2- Malnoske pacemaker pacemaker RN Essential Essential Diagnosis Active Latoya (primary) (primary) 04-06 Malnoske hypertensio hypertensio RN n n Type 2 Type 2 Diagnosis Active Latoya diabetes diabetes - Malnoske mellitus mellitus RN without without complicatio complicatio ns ns 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, disorder, RN recurrent, recurrent, unspecified unspecified Hyperlipide Hyperlipide Diagnosis Active Latoya dorina, dorina, 2- Malnoske unspecified unspecified RN Bipolar Bipolar Diagnosis Active Latoya disorder, disorder, Malnoske unspecified unspecified RN jail jail Diagnosis Active Latoya (current) (current) Malnoske use [...] 2019-0 Latoya clinically 2-24 Malnoske 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 Musculoskel transfer Musculoske Unknown 2020-0 Latoya etal assistance letal 04-09 Malnoske required 11:34: RN 00 Musculoskel knowledge/s Musculoske Unknown Latoya etal kill letal 04-09 Malnoske deficit: pt 11:34: RN 00 Safety risk for Safety Unknown Jonn hospitaliza 04-09 Lacey tion 15:15: [id number] Bed transfer PT/OT: Bed Active Jonn Mobility/Tr deficit: Mobility/T 2-24 Abhijit ansfer sit/stand ransfer 15:15: [id number] 00 Bed transfer PT/OT: Bed Active Jonn Mobility/Tr deficit: Mobility/T 224 Abhijti ansfer shower/tub ransfer 15:15: [id number] Bed knowledge/s PT/OT: Bed Active Jonn Mobility/Tr kill Mobility/T 04-09 Lacey ansfer deficit: pt ransfer 15:15: [id number] 00 Bed bed PT/OT: Bed Active Jonn Mobility/Tr mobility Mobility/T 04-09 Lacey ansfer deficit ransfer 15:15: [id number] 00 Balance/End balance/mailroom coordinator PT/OT: Active Jonn urance rdination Balance/En 2- Abhijit deficit durance 15:15: [id number] Balance/End endurance PT/OT: Active Jonn urance deficit Balance/En - Lacey durance 15:15: [id number] Balance/End knowledge/s PT/OT: Active Jonn urance kill Balance/En - Abhijit deficit: pt durance 15:15: [id number] Gait/Locomo knowledge/s PT/OT: Active Jonn tion kill Gait/Locom 2-24 Lacey problems deficit: pt otion 15:15: [id number] Gait/Locomo knowledge/s PT/OT: Active Jonn tion kill Gait/Locom 2-24 Lacey problems deficit: cg otion 15:15: [id number] 00 Gait/Locomo gait PT/OT: Active Jonn tion deficit Gait/Locom 2-24 Lacey problems otion 15:15: [id number] Activity self-care Activity Unknown Latoya deficit [...] d 04-13 09:35:00 Lacey deficit: pt 15:50: [id number] Nutrition nutritional Nutrition Resolve 2019-04-16 Jonn restriction d 04-13 09:35:00 Lacey s 15:50: [id number] Neuro knowledge/s Neuro/Emot Resolve 2019-04-26 Jonn kill ion d 04-13 15:15:00 Lacey deficit: pt 15:50: [id number] Musculoskel knowledge/s Musculoske Resolve 2019-04-19 Jonn etal kill letal d 04-13 15:32:00 Lacey deficit: pt 15:50: [id number] 00 Endo/Angelito anti-coagul Endo/Angelito Resolve 2019-04-19 Latoya ation d 04-15 15:32:00 Malnoske therapy 09:35: RN 00 Endo/Angelito knowledge/s Endo/Angelito Unknown Ngozi oneill 04-15 Hillebrand deficit: pt 14:00: t 00 [id number] Cardio pacemaker/I Cardiovasc Active Latoya CD ular [...] Unknown Unknown 500 mg 500 mg 04-06 ,Miki tablet tablet Tylenol 325 Tylenol 325 2019- [...]
--- OUTSIDE RECORDS SUMMARY | 2019-06-01 14:53 | XMS REPORT ---
:1940 Author Organization [facility] Care Team Providers Name Role [...] Latoya disorder, disorder, Malnoske unspecified unspecified RN nursing home nursing home Diagnosis Active Latoya (current) (current) [...] Cardio knowledge/s Cardiovasc Unknown Latoya kill ular 2-24 Malnoske deficit: pt 11:34: RN 00 Respiratory dyspnea Respirator Unknown 2019-0 Latoya present y 2-24 Malnoske 11:34: RN 00 Endo/Angelito knowledge/s Endo/Angelito Unknown 2020-0 Latoya kill 2-24 Malnoske deficit: pt 11:34: RN 00 Endo/Angelito anti-coagul Endo/Angelito Unknown 2019-0 Latoya ation 2-24 Malnoske therapy 11:34: RN 00 Integument surgical Integument Unknown 2020-0 Latoya wound 2-24 Malnoske present 11:34: RN [...] 11:34: RN 00 Activity self-care Activity Unknown 2020-0 Latoya deficit 2-24 Malnoske 11:34: RN 00 [...] 00 Medication potential Meds Unknown Latoya clinically 2-24 Malnoske 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 Musculoskel transfer Musculoske Unknown Latoya etal assistance letal 04-09 Malnoske required 11:34: RN 00 Musculoskel knowledge/s Musculoske Unknown Latoya etal kill letal 04-09 Malnoske deficit: pt 11:34: RN 00 Safety risk for Safety Unknown Jonn hospitaliza 04-09 Lacey tion 15:15: [id number] Bed transfer PT/OT: Bed Resolve 2019-05-02 Jonn Mobility/Tr deficit: Mobility/T d 2 15:45:00 Abhijit joel sit/stand ransfer 15:15: [id number] 00 Bed transfer PT/OT: Bed Resolve 2019-05-02 Jonn Mobility/Tr deficit: Mobility/T d 04-09 15:45:00 Abhijit joel shower/tub ransfer 15:15: [id number] 00 Bed knowledge/s PT/OT: Bed Resolve 2019-05-02 Jonn Mobility/Tr kill Mobility/T d 04-09 15:45:00 Abhijit joel deficit: pt ransfer 15:15: [id number] 00 Bed bed PT/OT: Bed Resolve 2019-05-02 Jonn Mobility/Tr mobility Mobility/T d 24 15:45:00 Abhijit joel deficit ransfer 15:15: [id number] Balance/End balance/patient service coordinator PT/OT: Resolve 2019-05-02 Jonn blake rdination Balance/En d 04-09 15:45:00 Abhijit deficit durance 15:15: [id number] 00 Balance/End endurance PT/OT: Resolve 2019-05-02 Jonn urance deficit Balance/En d 224 15:45:00 Lacey durance 15:15: [id number] Balance/End knowledge/s PT/OT: Resolve 2019-05-02 Jonn blake kill Balance/En d 24 15:45:00 Abhijit deficit: pt durance 15:15: [id number] Gait/Locomo knowledge/s PT/OT: Resolve 2019-05-02 Jonn hurd kill Gait/Locom d 04-09 15:45:00 Lacey problems deficit: pt otion 15:15: [id number] Gait/Locomo knowledge/s PT/OT: Resolve 2019-05-02 Jonn hurd kill Gait/Locom d 04-09 15:45:00 Lacey problems deficit: cg otion 15:15: [id number] 00 Gait/Locomo gait PT/OT: Resolve 2019-05-02 Jonn tirojelio deficit Gait/Locom d 04-09 15:45:00 Lacey problems otion 15:15: [id number] 00 Activity self-care Activity Unknown Latoya deficit [...] d 04-13 09:35:00 Lacey deficit: pt 15:50: [id number] Nutrition nutritional Nutrition Resolve 2019-04-16 Jonn restriction d 04-13 09:35:00 Lacey s 15:50: [id number] Neuro knowledge/s Neuro/Emot Resolve 2019-04-26 Jonn kill ion d 04-13 15:15:00 Abhijit deficit: pt 15:50: [id number] Musculoskel knowledge/s Musculoske Resolve 2019-04-19 Jonn etal kill letal d 04-13 15:32:00 Lacey deficit: pt 15:50: [id number] Endo/Angelito anti-coagul Endo/Angelito Resolve 2019-04-19 Latoya ation d 04-15 15:32:00 Malnoske therapy 09:35: RN 00 Endo/Angelito knowledge/s Endo/Angelito Unknown Ngozi oneill 04-15 Hillebrand deficit: pt 14:00: t 00 [id number] Cardio pacemaker/I Cardiovasc Resolve 2019-05-03 Latoya CD [...] hospitaliza d 05-01 14:20:00 Lacey tion 15:45: [id number] Allergies, Adverse Reactions, Alerts Allergy Allergy Type Status Severity Reaction(s) Onset Inactive Treating Comments Name Date Date Clinician nickel Base Active Unknown Blisters 2019-03 Venecia Pruett Medications Ordered Filled Start Stop Current Ordering Indication Dosage Frequency Signature Comments Components Medication Medication Date Date Medication? Clinician (SIG) Name Name apixaban 5 apixaban 5 2019- 2020- Yes Gould Unknown Unknown mg tablet mg tablet 04-06 Miki KATZ apixaban 5 apixaban 5 2020-0 Yes Brand Unknown Unknown mg tablet mg [...] 300 HCl XL 300 04-06 Miki KATZ mg 24 hr mg 24 hr tablet, [...] KATZ tablet tablet Tylenol 325 Tylenol 325 2019- Yes Gould Unknown Unknown mg tablet mg tablet 04-06 Miki KATZ oxyCODONE 5 oxyCODONE 5 2019-0 2020- Yes Brand Unknown Unknown mg tablet mg tablet 04-06 Darren KATZ glipiZIDE glipiZIDE 0 2020- Yes Gould Unknown Unknown ER 5 mg ER 5 mg 04-15 Miki KATZ tablet, tablet, extended extended release 24 release 24 hr hr gabapentin gabapentin 2019- Yes Gould Unknown Unknown 100 mg 100 mg 3- Miki KATZ capsule capsule glipiZIDE glipiZIDE 2019-0 Yes Gould Unknown Unknown ER 5 mg ER 5 mg 3 Miki KATZ tablet, tablet, extended extended release 24 release 24 hr hr metoprolol metoprolol 2019- Yes Brand Unknown Unknown succinate succinate - MDDarren ER 50 mg ER 50 mg tablet,exte tablet,exte nded nded release 24 release 24 hr hr Vital Signs Vital Name Observation Time Observation Value Comments SYSTOLIC mm[Hg] 2019-05-03 18:10:57 142 mm[Hg] mm[Hg] Method: Sit DIASTOLIC mm[Hg] 2019-05-03 18:10:57 65 mm[Hg] mm[Hg] Method: Sit PULSE 2019-05-03 18:10:57 62 /min /min RESP RATE 2019-05-03 18:10:57 16 /min /min TEMP 2019-05-07 18:11:01 98.0 [degF] Procedures This patient has no known procedures. Results This patient has no known results.
--- OUTSIDE RECORDS SUMMARY | 2019-06-01 14:53 | XMS REPORT | Continuity of Care Document ---
:1940 External Reference #:[id number] Author Name Yovanny Castillo DO FACC (transmitted by agent of provider Juani Rascon ) Address [address] [place] [address] Care Team Providers Name Role Phone Shree Fajardo MD - Internal Care Team Information Oil Exploration Engineer Medicine Miki Gould M.D. - Family Medicine Care Team Information Oil Exploration Engineer Problems Active Problems Provider Date Tachycardia-bradycardia Yael Davis, N.P. Onset: 04/13/2019 Paroxysmal atrial fibrillation Yael Davis, N.P. Onset: 04/13/2019 Cardiac pacemaker in situ Yael Davis, N.P. Onset: 04/13/2019 Cardiomyopathy Yael Davis, N.P. Onset: 04/13/2019 Social History Type Date Description [...] Available Procedures Date Code Description Status 05/01/2019 22283 Pace Maker Eval W/Iterative Adjment Dual Lead Completed 05/01/2019 99912 Pace Maker Eval W/Iterative Adjment Dual Lead Completed 04/13/2019 53468 Pace Maker Eval W/Iterative Adjment Dual Lead Completed 04/13/2019 17371 Pace Maker Eval W/Iterative Adjment Dual Lead Completed 04/13/2019 37442 EKG Tracing & Interpretation Completed 04/04/2019 54408 EKG, Interpretation Only Completed 04/03/2019 34321 EKG, Interpretation Only Completed 04/03/2019 85179 Perm Pacemaker Av Sequential Atrial And Ventricular Completed 04/01/2019 37869 EKG, Interpretation Only Completed 04/01/2019 73006 ECHO Transthorasic Realtime 2D W Doppler & Color Flow Hosp Completed Medical Devices Description No Information Available Encounters Type Date Location Provider Dx Diagnosis Office Visit 05/01/2019 [facility] Yael Davis, Z95.0 Presence of 3:00p Of [place] N.P. cardiac pacemaker I48.0 Paroxysmal atrial fibrillation I42.9 Cardiomyopathy, unspecified I49.5 Sick sinus syndrome D50.9 Iron deficiency anemia, unspecified Office Visit 04/13/2019 11:00a [facility] Yael Ortega. I48.0 Paroxysmal atrial Of [place] Foster, N.P. fibrillation Z95.0 Presence of cardiac pacemaker I49.5 Sick sinus syndrome I42.9 Cardiomyopathy, unspecified Office Visit 04/04/2019 [facility] Liane I48.0 Paroxysmal atrial 11:30a Assoc,daina Khalil PA-C fibrillation Hospitalists D50.9 Iron deficiency anemia, unspecified R29.6 Repeated falls M25.551 Pain in right hip E11.22 Type 2 diabetes mellitus w diabetic chronic kidney disease N18.9 Chronic kidney disease, unspecified Office Visit 04/03/2019 11:28a [facility] Liane D50.9 Iron deficiency Assoc,daina Khalil PA-C anemia, Hospitalists unspecified E11.22 Type 2 diabetes mellitus w diabetic chronic kidney disease N18.9 Chronic kidney disease, unspecified Office Visit 04/02/2019 11:28a [facility] Chandrakant Castillo, I48.91 Unspecified atrial M.D. fibrillation E83.42 Hypomagnesemia Office Visit 04/01/2019 3:55p [facility] Sara Velasquez, R06.02 Shortness of Of [place] M.D. 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, FLORAL DESIGN TEACHER disease, stage 4 (severe) D50.9 Iron deficiency anemia, unspecified R29.6 Repeated falls Office Visit 03/31/2019 11:21a [facility] Harman Lopez MD M25.551 Pain in right Assoc,pc hip Hospitalists E83.42 Hypomagnesemia R19.7 Diarrhea, unspecified W19.xxxA Unspecified fall, initial encounter Assessments Date Code Description Provider 05/01/2019 Z95.0 Presence of cardiac pacemaker Sara Velasquez M.D. 05/01/2019 Z95.0 Presence of cardiac pacemaker Ica Pacer Schedule 05/01/2019 I48.0 Paroxysmal atrial fibrillation Sara Velasquez M.D. 05/01/2019 Z95.0 Presence of cardiac pacemaker Yael S. Foster, N.P. 05/01/2019 I42.9 Cardiomyopathy, unspecified Sara Velasquez M.D. 05/01/2019 I48.0 Paroxysmal atrial fibrillation Ica Pacer Schedule 05/01/2019 I49.5 Sick sinus syndrome Sara Velasquez M.D. 05/01/2019 I48.0 Paroxysmal atrial fibrillation Yael S. [...] 04/04/2019 R94.31 Abnormal electrocardiogram [ECG] [EKG] Yovanny Castillo, DO [facility] 04/04/2019 I48.0 Paroxysmal atrial fibrillation Liane O'bernice, [...] I48.91 Unspecified atrial fibrillation Yovanny Castillo, DO [facility] 04/03/2019 I49.5 Sick sinus syndrome Darren Loving [...] Unspecified right bundle-branch block Yovanny Castillo, DO [facility] 04/01/2019 R06.02 Shortness of breath Sara Velasquez M.D. 04/01/2019 I48.0 Paroxysmal atrial fibrillation Sara Velasquez M.D. 04/01/2019 I49.5 Sick sinus syndrome Sara Velasquez M.D. 04/01/2019 R29.6 Repeated falls Sara Velasquez M.D. 04/01/2019 N18.4 Chronic kidney disease, stage 4 Bailey Stout FLORAL DESIGN TEACHER (severe) 04/01/2019 D50.9 Iron deficiency anemia, unspecified Bailey Stout FLORAL DESIGN TEACHER 04/01/2019 R29.6 Repeated falls Bailey Stanley Girish, MARISA 03/31/2019 M25.551 Pain in right hip Harman Lopez MD 03/31/2019 E83.42 Hypomagnesemia Harman Lopez MD 03/31/2019 R19.7 Diarrhea, unspecified Harman Lopez MD 03/31/2019 W19.xxxA Unspecified fall, initial encounter Harman Lopez MD Plan of Treatment Future Appointment(s):07/17/2019 11:00 am - Ica Pacer Schedule at [facility]07/17/2019 11:30 am - Sara Velasquez M.D. at [facility]07/05/2019 2:00 pm - [facility] ECHO Schedule at [facility]2019 - Yael Davis, N.P.Z95.0 Presence of cardiac pacemakerFollow up:PO 3 months Echo 06/2019 Try to move OV w/ SF to LS for 07/2019Recommendations:Pacer working well. No afib on pacemaker.I48.0 Paroxysmal atrial afqtkhlludrdR52.9 Cardiomyopathy, jngqtcexwpxO65.5 Sick sinus syndromeRecommendations:You can take Extra Strength Tylenol 500mg Take 2 tab 2-3x daily for pain.D50.9 Iron deficiency anemia, unspecified Functional Status Description No Information Available Mental Status Description No Information Available Referrals Description No Information Available
--- OUTSIDE RECORDS SUMMARY | 2019-06-01 14:53 | XMS REPORT | Continuity of Care Document ---
:1940 External Reference #:[id number] Author Name Ica Pacer Schedule (transmitted by agent of provider Marianne Warren) Address [address] [place] [address] Care Team Providers Name Role Phone Shree Fajardo MD - Internal Care Team Information [facility] Miki Gould M.D. - Family Medicine Care Team Information [facility] Problems Active Problems Provider Date Tachycardia-bradycardia Yael [...] Eliquis 1 by mouth twice 180tabs Yael SNorma Davis, 5mg Tablets a day N.P. Ferrous Gluconate 1 by mouth every Unknown day 324(38Fe) mg Tablets Divalproex Sodium 1 by mouth twice Unknown 250mg a day Tablets DR Cephalexin 1 tab 3 times a Unknown 250mg day for 3 days Capsules Glipizide take one tablet Unknown 5mg Tablets by mouth twice a day Tylenol 8 Hour take every 6 Unknown 650mg hours as needed Tablets ER for pain, headache or fever HM Esomeprazole take two capsules Unknown Magnesium Delayed 1/2 before Release breakfast 20mg Capsules DR Metoprolol Succinate 1 by mouth every 90tabs Yael Davis, ER day N.P. 50mg Tablets ER 24HR Citalopram 1 by mouth every Unknown Hydrobromide day 10mg Tablets Medications Administered in Office Medication SIG Qnty Indications Ordering Provider Date Celestone 3 mg and 3mg Juani Velazco, 04/28/2010 Injection MiSxto Immunizations Description No Information Available Vital Signs Date Vital Result Comment 05/01/2019 2:26pm Height 60 inches 5'0" Ejection Fraction 45-50% Echo 04/01/2019 04/13/2019 11:07am [...] Available Procedures Date Code Description Status 04/13/2019 92854 Pace Maker Eval W/Iterative Adjment Dual Lead Completed 04/13/2019 27218 Pace Maker Eval W/Iterative Adjment Dual Lead Completed 04/13/2019 30130 EKG Tracing & Interpretation Completed 04/03/2019 78278 Perm Pacemaker Av Sequential Atrial And Ventricular Completed 04/01/2019 56335 ECHO Transthorasic Realtime 2D W Doppler & Color Flow Hosp Completed Medical Devices Description No Information Available Encounters Type Date Location Provider Dx Diagnosis Office Visit 04/13/2019 [facility] Yael Davis, I48.0 Paroxysmal atrial 11:00a Of Compensation Programs Manager N.P. fibrillation Z95.0 Presence of cardiac pacemaker I49.5 Sick sinus syndrome I42.9 Cardiomyopathy, unspecified Office Visit 04/03/2019 11:28a [facility] Liane D50.9 Iron deficiency Assoc,daina Khalil PA-C anemia, Hospitalists unspecified E11.22 Type 2 diabetes mellitus w diabetic chronic kidney disease N18.9 Chronic kidney disease, unspecified Office Visit 04/02/2019 11:28a [facility] Chandrakant Castillo, I48.91 Unspecified atrial M.D. fibrillation E83.42 Hypomagnesemia Office Visit 04/01/2019 3:55p [facility] Sara Velasquez, R06.02 Shortness of Of Compensation Programs Manager M.D. 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 04/13/2019 Z95.0 Presence of cardiac pacemaker Ica Pacer Schedule 04/13/2019 I48.0 Paroxysmal atrial fibrillation Yael S. Foster, N.P. 04/13/2019 Z95.0 Presence of cardiac pacemaker Yael S. Foster, N.P. 04/13/2019 I49.5 Sick sinus syndrome Yael S. Foster, N.P. 04/13/2019 I42.9 Cardiomyopathy, unspecified Yael S. Foster, N.P. 04/04/2019 I48.0 Paroxysmal atrial fibrillation GRACE Wong-C 04/04/2019 D50.9 Iron deficiency anemia, unspecified GRACE Wong-C 04/04/2019 R29.6 Repeated falls GRACE Wong-C 04/04/2019 M25.551 Pain in right hip KELSEA WongC 04/04/2019 E11.22 Type 2 diabetes mellitus with diabetic GRACE Wong chronic kidney disease 04/04/2019 N18.9 Chronic kidney disease, unspecified GRACE Wong-C 04/03/2019 I49.5 Sick sinus syndrome Darren Loving M.D. 04/03/2019 D50.9 Iron deficiency anemia, unspecified Liane Khalil PA-C 04/03/2019 E11.22 Type 2 diabetes mellitus with diabetic GRACE Wong chronic kidney disease 04/03/2019 N18.9 Chronic kidney disease, unspecified Liane Khalil PA-C 04/02/2019 I48.91 Unspecified atrial fibrillation Chandrakant [...] 04/01/2019 D50.9 Iron deficiency anemia, unspecified Bailey Sotut NP 04/01/2019 R29.6 Repeated falls Bailey Stout NP 03/31/2019 M25.551 Pain in right hip Harman Lopez MD 03/31/2019 E83.42 Hypomagnesemia Harman Lopez MD 03/31/2019 R19.7 Diarrhea, unspecified Harman Lopez MD 03/31/2019 W19.xxxA Unspecified fall, initial encounter Harman Lopez MD Plan of Treatment Future Appointment(s):07/05/2019 2:00 pm - [facility] ECHO Schedule at [facility]07/17/2019 3:00 pm - Yael Davis N.P. at [facility] Functional Status Description No Information Available Mental Status Description No Information Available Referrals Description No Information Available
--- OUTSIDE RECORDS SUMMARY | 2019-06-01 14:53 | XMS REPORT | Continuity of Care Document ---
:1940 External Reference #:[id number] Author Name Yovanny Castillo DO FACC (transmitted by agent of provider Shelley Lucas) Address [address] [place] [address] Care Team Providers Name Role Phone Shree Fajardo MD - Internal Care Team Information Lithoduplicator Operator Medicine Miki Gould M.D. - Family Medicine Care Team Information Lithoduplicator Operator Problems Active Problems Provider Date Tachycardia-bradycardia Yael [...] Available Procedures Date Code Description Status 05/01/2019 35209 Pace Maker Eval W/Iterative Adjment Dual Lead Completed 04/13/2019 74652 Pace Maker Eval W/Iterative Adjment Dual Lead Completed 04/13/2019 61842 Pace Maker Eval W/Iterative Adjment Dual Lead Completed 04/13/2019 33297 EKG Tracing & Interpretation Completed 04/04/2019 13824 EKG, Interpretation Only Completed 04/03/2019 86194 EKG, Interpretation Only Completed 04/03/2019 41891 Perm Pacemaker Av Sequential Atrial And Ventricular Completed 04/01/2019 96520 EKG, Interpretation Only Completed 04/01/2019 29968 ECHO Transthorasic Realtime 2D W Doppler & Color Flow Hosp Completed Medical Devices Description No Information Available Encounters Type Date Location Provider Dx Diagnosis Office Visit 04/13/2019 [facility] Yael Davis, I48.0 Paroxysmal atrial 11:00a Of Aquatic Centre Manager N.P. fibrillation Z95.0 Presence of cardiac pacemaker I49.5 Sick sinus syndrome I42.9 Cardiomyopathy, unspecified Office Visit 04/04/2019 [facility] Liane I48.0 Paroxysmal atrial 11:30a Assoc,daina Khalil PA-C fibrillation Hospitalists D50.9 Iron deficiency anemia, unspecified R29.6 Repeated falls M25.551 Pain in right hip E11.22 Type 2 diabetes mellitus w diabetic chronic kidney disease N18.9 Chronic kidney disease, unspecified Office Visit 04/03/2019 11:28a [facility] Liane D50.9 Iron deficiency Assoc,daina Khalil PA-C anemia, Hospitalists unspecified E11.22 Type 2 diabetes mellitus w diabetic chronic kidney disease N18.9 Chronic kidney disease, unspecified Office Visit 04/02/2019 11:28a [facility] Chandrakant Castillo, I48.91 Unspecified atrial M.D. fibrillation E83.42 Hypomagnesemia Office Visit 04/01/2019 3:55p [facility] Sara Velasquez, R06.02 Shortness of Of Aquatic Centre Manager M.D. 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, FACTORY EXPERT disease, stage 4 (severe) D50.9 Iron deficiency anemia, unspecified R29.6 Repeated falls Office Visit 03/31/2019 11:21a [facility] Harman Lopez MD M25.551 Pain in right [...] Abnormal electrocardiogram [ECG] [EKG] Yovanny Castillo, DO [facility] 04/04/2019 I48.0 Paroxysmal atrial fibrillation Liane Khalil PA-C 04/04/2019 D50.9 Iron deficiency anemia, unspecified Liane Khalil, GRACE-C 04/04/2019 R29.6 Repeated falls GRACE Wong-C 04/04/2019 M25.551 Pain in right hip GRACE Wong-C 04/04/2019 E11.22 Type 2 diabetes mellitus with diabetic Liane Khalil PA -C chronic kidney disease 04/04/2019 N18.9 Chronic kidney disease, unspecified Liane Ingris'bernice PA-C 04/03/2019 I48.91 Unspecified atrial fibrillation Yovanny Castillo, DO [facility] 04/03/2019 I49.5 Sick sinus syndrome Darren Loving M.D. 04/03/2019 D50.9 Iron deficiency anemia, unspecified Liane Khalil PA-C 04/03/2019 E11.22 Type 2 diabetes mellitus with diabetic GRACE Wong chronic kidney disease 04/03/2019 N18.9 Chronic kidney disease, unspecified Liane Khalil PA-C 04/02/2019 I48.91 Unspecified atrial fibrillation Chandrakant Castillo M.D. 04/02/2019 E83.42 Hypomagnesemia Chandrakant Castillo M.D. 04/01/2019 I45.10 Unspecified right bundle-branch block Yovanny Castillo, DO [facility] 04/01/2019 R06.02 Shortness of breath Sara Velasquez [...] 11:00 am - Ica Pacer Schedule at [facility]07/17/2019 11:30 am - Sara Velasquez M.D. at [facility]07/05/2019 2:00 pm - Ica ECHO Schedule at [facility]2019 - Yael S. Foster, N.P.I48.0 Paroxysmal atrial fibrillationRecommendations: Continue Metoprolol, Multaq and GongmqvT92.0 Presence of cardiac pacemakerFollow up:PO/OV 3-4 weeks LS or SF OV LS 3 mo (echo prior) Recommendations:Pacing at the top 99% of the time; <0.1% at the bottom No arrhythmias seen. Keep arm at below level of elbow until pacer yotueB68.5 Sick sinus yxkkdiumD15.9 Cardiomyopathy, unspecifiedNew Orders:Echocardiogram, Limited Study, Ordered: 04/13/19Recommendations:Heart function 45-50% in the hospital We will recheck this in a few months. Functional Status Description No Information Available Mental Status Description No Information Available Referrals Description No Information Available
--- OUTSIDE RECORDS SUMMARY | 2019-06-01 14:53 | XMS REPORT ---
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 Musculoskel transfer Musculoske Unknown Latoya etal assistance letal - Malnoske required 11:34: RN 00 Musculoskel knowledge/s Musculoske Unknown Latoya etal kill letal - Malnoske deficit: pt 11:34: RN 00 Safety risk for Safety Unknown Jonn hospitaliza 2- Lacey tion 15:15: [id number] Bed transfer PT/OT: Bed Resolve 2019-05-02 Jonn Mobility/Tr deficit: Mobility/T d 224 15:45:00 Abhijit joel sit/stand ransfer 15:15: [id number] Bed transfer PT/OT: Bed Resolve 2019-05-02 Jonn Mobility/Tr deficit: Mobility/T d 224 15:45:00 Abhijit joel shower/tub ransfer 15:15: [id number] Bed knowledge/s PT/OT: Bed Resolve 2019-05-02 Jonn Mobility/Tr kill Mobility/T d 224 15:45:00 Abhijit joel deficit: pt ransfer 15:15: [id number] 00 Bed bed PT/OT: Bed Resolve 2019-05-02 Jonn Mobility/Tr mobility Mobility/T d 224 15:45:00 Abhijit joel deficit ransfer 15:15: [id number] Balance/End balance/cooper apprentice PT/OT: Resolve 2019-05-02 Jonn blake rdination Balance/En d 224 15:45:00 Abhijit deficit durance 15:15: [id number] Balance/End endurance PT/OT: Resolve 2019-05-02 Jonn urance deficit Balance/En d 224 15:45:00 Lacey durance 15:15: [id number] Balance/End knowledge/s PT/OT: Resolve 2019-05-02 Jnon urance kill Balance/En d 224 15:45:00 Abhijit deficit: pt durance 15:15: [id number] Gait/Locomo knowledge/s PT/OT: Resolve 2019-05-02 Jonn tion kill Gait/Locom d 24 15:45:00 Lacey problems deficit: pt otion 15:15: [id number] Gait/Locomo knowledge/s PT/OT: Resolve 2019-05-02 Jonn tion kill Gait/Locom d 24 15:45:00 Lacey problems deficit: cg otion 15:15: [id number] 00 Gait/Locomo gait PT/OT: Resolve 2019-05-02 Jonn tion deficit Gait/Locom d 04-09 15:45:00 Lacey problems otion 15:15: [id number] 00 Activity self-care Activity Unknown Latoya deficit [...] d 04-13 09:35:00 Lacey deficit: pt 15:50: [id number] Nutrition nutritional Nutrition Resolve 2019-04-16 Jonn restriction d 04-13 09:35:00 Lacey s 15:50: [id number] Neuro knowledge/s Neuro/Emot Resolve 2019-04-26 Jonn kill ion d 04-13 15:15:00 Lacey deficit: pt 15:50: [id number] Musculoskel knowledge/s Musculoske Resolve 2019-04-19 Jonn etal kill letal d 04-13 15:32:00 Lacey deficit: pt 15:50: [id number] 00 Endo/Angelito anti-coagul Endo/Angelito Resolve 2019-04-19 Latoya ation d 04-15 15:32:00 Malnoske therapy 09:35: RN 00 Endo/Angelito knowledge/s Endo/Angelito Unknown Ngozi kill 04-15 Hillebrand deficit: pt 14:00: t 00 [id number] Cardio pacemaker/I Cardiovasc Resolve 2019-05-03 Latoya CD [...] hospitaliza d 05-01 14:20:00 Lacey tion 15:45: [id number] 00 Cardio pacemaker/I Cardiovasc Active Latoya CD [...]
--- OUTSIDE RECORDS SUMMARY | 2019-06-01 14:53 | XMS REPORT | Continuity of Care Document ---
:1940 External Reference #:[id number] Author Name Ica Pacer Schedule (transmitted by agent of provider Shelley Lucas) Address [address] [place] [address] Care Team Providers Name Role Phone Shree Fajardo MD - Internal Care Team Information Crinkling Machine Operator Medicine Miki Gould M.D. - Family Medicine Care Team Information Crinkling Machine Operator Problems Active Problems Provider Date Tachycardia-bradycardia [...] 24HR Multaq 1 by mouth twice 180tabs Yaelpola Davis, 400mg Tablets a day N.P. Atorvastatin [...] Available Procedures Date Code Description Status 05/01/2019 84544 Pace Maker Eval W/Iterative Adjment Dual Lead Completed 05/01/2019 61417 Pace Maker Eval W/Iterative Adjment Dual Lead Completed 04/13/2019 43213 Pace Maker Eval W/Iterative Adjment Dual Lead Completed 04/13/2019 10218 Pace Maker Eval W/Iterative Adjment Dual Lead Completed 04/13/2019 32909 EKG Tracing & Interpretation Completed 04/04/2019 37617 EKG, Interpretation Only Completed 04/03/2019 78090 EKG, Interpretation Only Completed 04/03/2019 94204 Perm Pacemaker Av Sequential Atrial And Ventricular Completed 04/01/2019 36737 EKG, Interpretation Only Completed 04/01/2019 43459 ECHO Transthorasic Realtime 2D W Doppler & Color Flow Hosp Completed Medical Devices Description No Information Available Encounters Type Date Location Provider Dx Diagnosis Office Visit 05/01/2019 [facility] Yael Davis, Z95.0 Presence of 3:00p Of Remote Control Assembler N.P. cardiac pacemaker I48.0 Paroxysmal atrial fibrillation I42.9 Cardiomyopathy, unspecified I49.5 Sick sinus syndrome D50.9 Iron deficiency anemia, unspecified Office Visit 04/13/2019 11:00a [facility] Yael S. I48.0 Paroxysmal atrial Of Remote Control Assembler Foster, N.P. fibrillation Z95.0 Presence of cardiac pacemaker I49.5 Sick sinus syndrome I42.9 Cardiomyopathy, unspecified Office Visit 04/04/2019 [facility] Liane I48.0 Paroxysmal atrial 11:30a Assoc,daina Khalil PA-C fibrillation Hospitalists D50.9 Iron deficiency anemia, unspecified R29.6 Repeated falls M25.551 Pain in right hip E11.22 Type 2 diabetes mellitus w diabetic chronic kidney disease N18.9 Chronic kidney disease, unspecified Office Visit 04/03/2019 11:28a [facility] Liane D50.9 Iron deficiency Assoc,daina Khalil PA-C anemia, Hospitalists unspecified E11.22 Type 2 diabetes mellitus w diabetic chronic kidney disease N18.9 Chronic kidney disease, unspecified Office Visit 04/02/2019 11:28a [facility] Chandrakant Castillo, I48.91 Unspecified atrial M.D. fibrillation E83.42 Hypomagnesemia Office Visit 04/01/2019 3:55p [facility] Sara Velasquez, R06.02 Shortness of Of Remote Control Assembler M.D. 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, BARREL LATHE OPERATOR OUTSIDE disease, stage 4 (severe) D50.9 Iron deficiency anemia, unspecified R29.6 Repeated falls Office Visit 03/31/2019 11:21a [facility] Harman Lopez MD M25.551 Pain in [...] Abnormal electrocardiogram [ECG] [EKG] Yovanny Castillo DO [facility] 04/04/2019 I48.0 Paroxysmal atrial fibrillation Liane [...] I48.91 Unspecified atrial fibrillation Yovanny Castillo, DO [facility] 04/03/2019 I49.5 Sick sinus syndrome Darren [...] Unspecified right bundle-branch block Yovanny Castillo, DO [facility] 04/01/2019 R06.02 Shortness of breath Sara Velasquez M.D. 04/01/2019 I48.0 Paroxysmal atrial fibrillation Sara Velasquez M.D. 04/01/2019 I49.5 Sick sinus syndrome Sara Velasquez M.D. 04/01/2019 R29.6 Repeated falls Sara Velasquez M.D. 04/01/2019 N18.4 Chronic kidney disease, stage 4 Bailey Stout, MARISA (severe) 04/01/2019 D50.9 Iron deficiency anemia, unspecified Bailey Stout NP 04/01/2019 R29.6 Repeated falls Bailey Stout NP 03/31/2019 M25.551 Pain in right hip Harman Lopez MD 03/31/2019 E83.42 Hypomagnesemia Harman Lopez MD 03/31/2019 R19.7 Diarrhea, unspecified Harman Lopez MD 03/31/2019 W19.xxxA Unspecified fall, initial encounter Harman Lopez MD Plan of Treatment Future Appointment(s):07/17/2019 11:00 am - Ica Pacer Schedule at [facility]07/17/2019 11:30 am - Sara Velasquez M.D. at [facility]07/05/2019 2:00 pm - Ica ECHO Schedule at [facility]2019 - Yael Davis, N.P.Z95.0 Presence of cardiac pacemakerFollow up:PO 3 months Echo 06/2019 Try to move OV w/ SF to LS for 07/2019Recommendations:Pacer working well. No afib on pacemaker.I48.0 Paroxysmal atrial pxlxtsahyldsQ81.9 Cardiomyopathy, kzyolumikfdN31.5 Sick sinus syndromeRecommendations:You can take Extra Strength Tylenol 500mg Take 2 tab 2-3x daily for pain.D50.9 Iron deficiency anemia, unspecified Functional Status Description No Information Available Mental Status Description No Information Available Referrals Description No Information Available
--- OUTSIDE RECORDS SUMMARY | 2019-06-01 14:53 | XMS REPORT | Continuity of Care Document ---
:1940 External Reference #:[id number] Author Name Liane Khalil PA-C (transmitted by agent of provider Elvira Villalobos) Address [address] [place] [address] Care Team Providers Name Role Phone Shree Fajardo MD - Internal Care Team Information Quality Control Analyst [phone] Medicine Miki Gould M.D. - Family Medicine Care Team Information Quality Control Analyst [phone] Problems Active Problems Provider Date Tachycardia-bradycardia Yael [...] mg and 3mg Juani Velazco, 04/28/2010 Injection MSixto Immunizations Description No Information Available Vital Signs [...] Available Procedures Date Code Description Status 04/13/2019 97449 Pace Maker Eval W/Iterative Adjment Dual Lead Completed 04/13/2019 67072 Pace Maker Eval W/Iterative Adjment Dual Lead Completed 04/13/2019 02022 EKG Tracing & Interpretation Completed 04/03/2019 15437 Perm Pacemaker Av Sequential Atrial And Ventricular Completed 04/01/2019 02111 ECHO Transthorasic Realtime 2D W Doppler & Color Flow Hosp Completed Medical Devices Description No Information Available Encounters Type Date Location Provider Dx Diagnosis Office Visit 04/13/2019 [facility] Yael Davis, I48.0 Paroxysmal atrial 11:00a Of Support Dba N.P. fibrillation Z95.0 Presence of cardiac pacemaker I49.5 Sick sinus syndrome I42.9 Cardiomyopathy, unspecified Office Visit 04/03/2019 11:28a [facility] Liane D50.9 Iron deficiency Assoc,pc O'bernice, PA-C anemia, Hospitalists unspecified E11.22 Type 2 diabetes mellitus w diabetic chronic kidney disease N18.9 Chronic kidney disease, unspecified Office Visit 04/02/2019 11:28a [facility] Chandrakant Castillo, I48.91 Unspecified atrial M.D. fibrillation E83.42 Hypomagnesemia Office Visit 04/01/2019 3:55p [facility] Sara Velasquez, R06.02 Shortness of Of Support Dba M.D. 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, MANAGER NUCLEAR disease, stage 4 (severe) D50.9 Iron deficiency [...] Wong-C 04/04/2019 D50.9 Iron deficiency anemia, unspecified Liane Khalil PA-C 04/04/2019 R29.6 Repeated falls GRACE Wong-C 04/04/2019 M25.551 Pain in right hip GRACE Wong-C 04/04/2019 E11.22 Type 2 diabetes mellitus with diabetic GRACE WongC chronic kidney disease 04/04/2019 N18.9 Chronic kidney [...] D50.9 Iron deficiency anemia, unspecified Bailey Stout, MANAGER NUCLEAR 04/01/2019 R29.6 Repeated falls Bailey Stout NP 03/31/2019 M25.551 Pain in right hip Harman Lopez MD 03/31/2019 E83.42 Hypomagnesemia Harman Lopez MD 03/31/2019 R19.7 Diarrhea, unspecified Harman Lopez MD 03/31/2019 W19.xxxA Unspecified fall, initial encounter Harman Lopez MD Plan of Treatment Future Appointment(s):07/05/2019 2:00 pm - Ica ECHO Schedule at [facility]07/17/2019 3:00 pm - Yael Davis N.P. at [facility] Functional Status Description No Information Available Mental Status Description No Information Available Referrals Description No Information Available
--- OUTSIDE RECORDS SUMMARY | 2019-06-01 14:53 | XMS REPORT | Continuity of Care Document ---
:1940 External Reference #:[id number] Author Name Harman Lopez MD (transmitted by agent of provider Elvira Villalobos) Address [address] [place] [address] Care Team Providers Name Role Phone Shree Fajardo MD - Internal Care Team Information Religion Teacher Medicine Miki Gould M.D. - Family Medicine Care Team Information Religion Teacher [phone] Problems Active Problems Provider Date Tachycardia-bradycardia Yael [...] Available Procedures Date Code Description Status 05/01/2019 60970 Pace Maker Eval W/Iterative Adjment Dual Lead Completed 04/13/2019 63590 Pace Maker Eval W/Iterative Adjment Dual Lead Completed 04/13/2019 42499 Pace Maker Eval W/Iterative Adjment Dual Lead Completed 04/13/2019 55759 EKG Tracing & Interpretation Completed 04/04/2019 50133 EKG, Interpretation Only Completed 04/03/2019 85611 EKG, Interpretation Only Completed 04/03/2019 92891 Perm Pacemaker Av Sequential Atrial And Ventricular Completed 04/01/2019 64681 EKG, Interpretation Only Completed 04/01/2019 67843 ECHO Transthorasic Realtime 2D W Doppler & Color Flow Hosp Completed Medical Devices Description No Information Available Encounters Type Date Location Provider Dx Diagnosis Office Visit 04/13/2019 [facility] Yaelpola Davis, I48.0 Paroxysmal atrial 11:00a Of Principal Architect N.P. fibrillation Z95.0 Presence of cardiac pacemaker I49.5 Sick sinus syndrome I42.9 Cardiomyopathy, unspecified Office Visit 04/04/2019 [facility] Liane I48.0 Paroxysmal atrial 11:30a Assoc,daina Khalil PA-C fibrillation Hospitalists D50.9 Iron deficiency anemia, unspecified R29.6 Repeated falls M25.551 Pain in right hip E11.22 Type 2 diabetes mellitus w diabetic chronic kidney disease N18.9 Chronic kidney disease, unspecified Office Visit 04/03/2019 11:28a [facility] Liane D50.9 Iron deficiency Assoc,daina Khalil PA-C anemia, Hospitalists unspecified E11.22 Type 2 diabetes mellitus w diabetic chronic kidney disease N18.9 Chronic kidney disease, unspecified Office Visit 04/02/2019 11:28a [facility] Chandrakant Castillo, I48.91 Unspecified atrial M.D. fibrillation E83.42 Hypomagnesemia Office Visit 04/01/2019 3:55p [facility] Sara Velasquez, R06.02 Shortness of Of Principal Architect M.D. 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 Ryan, N.P. 04/13/2019 Z95.0 Presence of cardiac pacemaker Yael S. Foster, N.P. 04/13/2019 I49.5 Sick sinus syndrome Yael S. Foster, N.P. 04/13/2019 I42.9 Cardiomyopathy, unspecified Yael S. Foster, N.P. 04/04/2019 I48.0 Paroxysmal atrial fibrillation Liane Khalil PA-C 04/04/2019 D50.9 Iron deficiency anemia, unspecified KELSEA WongC 04/04/2019 R29.6 Repeated falls KELSEA WongC 04/04/2019 M25.551 Pain in right hip GRACE Wong-C 04/04/2019 E11.22 Type 2 diabetes mellitus with diabetic GRACE Wong chronic kidney disease 04/04/2019 N18.9 Chronic kidney disease, unspecified GRACE Wong-C 04/03/2019 I49.5 Sick sinus syndrome Darren Loving M.D. 04/03/2019 D50.9 Iron deficiency anemia, unspecified GRACE Wong-C 04/03/2019 E11.22 Type 2 diabetes mellitus with [...] 11:00 am - Ica Pacer Schedule at [facility]07/17/2019 11:30 am - Sara Velasquez M.D. at [facility]07/05/2019 2:00 pm - Ica ECHO Schedule at [facility]2019 - Yael Davis, N.P.Z95.0 Presence of cardiac pacemakerFollow up:PO 3 months Echo 06/2019 Try to move OV w/ SF to for 07/2019Recommendations:Pacer working well. No afib on pacemaker.I48.0 Paroxysmal atrial mqykribdpbwuJ95.9 Cardiomyopathy, mzwbjghermtB11.5 Sick sinus syndromeRecommendations:You can take Extra Strength Tylenol 500mg Take 2 tab 2-3x daily for pain.D50.9 Iron deficiency anemia, unspecified Functional Status Description No Information Available Mental Status Description No Information Available Referrals Description No Information Available
--- OUTSIDE RECORDS SUMMARY | 2019-06-01 14:53 | XMS REPORT ---
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 Musculoskel transfer Musculoske Unknown Latoya etal assistance letal 04-09 Malnoske required 11:34: RN 00 Musculoskel knowledge/s Musculoske Unknown Latoya etal kill letal 04-09 Malnoske deficit: pt 11:34: RN 00 Safety risk for Safety Unknown Jonn hospitaliza 04-09 Lacey tion 15:15: [id number] Bed transfer PT/OT: Bed Resolve 2019-05-02 Jonn Mobility/Tr deficit: Mobility/T d 2 15:45:00 Abhijit joel sit/stand ransfer 15:15: [id number] Bed transfer PT/OT: Bed Resolve 2019-05-02 Jonn Mobility/Tr deficit: Mobility/T d 04-09 15:45:00 Abhijit joel shower/tub ransfer 15:15: [id number] Bed knowledge/s PT/OT: Bed Resolve 2019-05-02 Jonn Mobility/Tr kill Mobility/T d 04-09 15:45:00 Abhijit joel deficit: pt ransfer 15:15: [id number] 00 Bed bed PT/OT: Bed Resolve 2019-05-02 Jonn Mobility/Tr mobility Mobility/T d 24 15:45:00 Abhijit joel deficit ransfer 15:15: [id number] Balance/End balance/international logistics coordinator PT/OT: Resolve 2019-05-02 Jonn blake rdination Balance/En d 04-09 15:45:00 Abhijit deficit durance 15:15: [id number] Balance/End endurance PT/OT: Resolve 2019-05-02 Jonn urance deficit Balance/En d 224 15:45:00 Lacey durance 15:15: [id number] Balance/End knowledge/s PT/OT: Resolve 2019-05-02 Jonn blake kill Balance/En d 24 15:45:00 Abhijit deficit: pt durance 15:15: [id number] Gait/Locomo knowledge/s PT/OT: Resolve 2019-05-02 Jonn hurd kill Gait/Locom d 04-09 15:45:00 Lacey problems deficit: pt otion 15:15: [id number] Gait/Locomo knowledge/s PT/OT: Resolve 2019-05-02 Jonn hurd kill Gait/Locom d 04-09 15:45:00 Lacey problems deficit: cg otion 15:15: [id number] Gait/Locomo gait PT/OT: Resolve 2019-05-02 Jonn tirojelio deficit Gait/Locom d 04-09 15:45:00 Lacey problems otion 15:15: [id number] Activity self-care Activity Unknown Latoya deficit [...] d 04-13 09:35:00 Lacey deficit: pt 15:50: [id number] Nutrition nutritional Nutrition Resolve 2019-04-16 Jonn restriction d 04-13 09:35:00 Lacey s 15:50: [id number] Neuro knowledge/s Neuro/Emot Resolve 2019-04-26 Jonn kill ion d 04-13 15:15:00 Abhijit deficit: pt 15:50: [id number] Musculoskel knowledge/s Musculoske Resolve 2019-04-19 Jonn etal kill letal d 04-13 15:32:00 Lacey deficit: pt 15:50: [id number] 00 Endo/Angelito anti-coagul Endo/Angelito Resolve 2019-04-19 Latoya ation d 04-15 15:32:00 Malnoske therapy 09:35: RN 00 Endo/Angelito knowledge/s Endo/Angelito Unknown Ngozi oneill 04-15 Hillebrand deficit: pt 14:00: t 00 [id number] Cardio pacemaker/I Cardiovasc Resolve 2019-05-03 Latoya CD [...] hospitaliza d 05-01 14:20:00 Lacey tion 15:45: [id number] 00 Allergies, Adverse Reactions, Alerts Allergy Allergy [...]
--- OUTSIDE RECORDS SUMMARY | 2019-06-01 14:53 | XMS REPORT ---
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 Musculoskel transfer Musculoske Unknown 2020-0 Latoya etal assistance letal 04-09 Malnoske required 11:34: RN 00 Musculoskel knowledge/s Musculoske Unknown Latoya etal kill letal 04-09 Malnoske deficit: pt 11:34: RN 00 Safety risk for Safety Unknown Jonn hospitaliza - Lacey tion 15:15: [id number] Bed transfer PT/OT: Bed Resolve 2019-05-02 Jonn Mobility/Tr deficit: Mobility/T d 2-24 15:45:00 Abhijit joel sit/stand ransfer 15:15: [id number] 00 Bed transfer PT/OT: Bed Resolve 2019-05-02 Jonn Mobility/Tr deficit: Mobility/T d 224 15:45:00 Abhijit joel shower/tub ransfer 15:15: [id number] Bed knowledge/s PT/OT: Bed Resolve 2019-05-02 Jonn Mobility/Tr kill Mobility/T d 224 15:45:00 Abhijit joel deficit: pt ransfer 15:15: [id number] 00 Bed bed PT/OT: Bed Resolve 2019-05-02 Jonn Mobility/Tr mobility Mobility/T d 24 15:45:00 Abhijit joel deficit ransfer 15:15: [id number] Balance/End balance/hospital coordinator PT/OT: Resolve 2019-05-02 Jonn ignacioance rdination Balance/En d 224 15:45:00 Abhijit deficit durance 15:15: [id number] Balance/End endurance PT/OT: Resolve 2019-05-02 Jonn urance deficit Balance/En d 224 15:45:00 Lacey durance 15:15: [id number] Balance/End knowledge/s PT/OT: Resolve 2019-05-02 Jonn urance kill Balance/En d 224 15:45:00 Abhijit deficit: pt durance 15:15: [id number] Gait/Locomo knowledge/s PT/OT: Resolve 2019-05-02 Jonn tion kill Gait/Locom d 2-24 15:45:00 Abhijit problems deficit: pt otion 15:15: [id number] Gait/Locomo knowledge/s PT/OT: Resolve 2019-05-02 Jonn tion kill Gait/Locom d 24 15:45:00 Lacey problems deficit: cg otion 15:15: [id number] Gait/Locomo gait PT/OT: Resolve 2019-05-02 Jonn tion deficit Gait/Locom d 24 15:45:00 Lacey problems otion 15:15: [id number] Activity self-care Activity Unknown Latoya deficit [...] d 04-13 09:35:00 Lacey deficit: pt 15:50: [id number] Nutrition nutritional Nutrition Resolve 2019-04-16 Jonn restriction d 04-13 09:35:00 Lacey s 15:50: [id number] Neuro knowledge/s Neuro/Emot Resolve 2019-04-26 Jonn kill ion d 04-13 15:15:00 Lacey deficit: pt 15:50: [id number] Musculoskel knowledge/s Musculoske Resolve 2019-04-19 Jonn etal kill letal d 04-13 15:32:00 Lacey deficit: pt 15:50: [id number] 00 Endo/Angelito anti-coagul Endo/Angelito Resolve 2019-04-19 Ltaoya ation d 04-15 15:32:00 Malnoske therapy 09:35: RN 00 Endo/Angelito knowledge/s Endo/Angelito Unknown Ngozi kill 04-15 Hillebrand deficit: pt 14:00: t 00 [id number] Cardio pacemaker/I Cardiovasc Active Latoya CD ular [...] leave home 00 Safety risk for Safety Active Jonn hospitaliza 05-01 Lacey tion 15:45: [id number] Allergies, Adverse Reactions, Alerts Allergy Allergy [...] KATZ tablet tablet Multaq 400 Multaq 400 2019-0 Yes Brand Unknown Unknown mg tablet mg tablet 04-06 Darren KATZ ferrous ferrous 2019-0 Yes Gould Unknown Unknown gluconate gluconate 04-06 Miki KATZ 324 mg 324 mg (37.5 mg (37.5 mg iron) iron) tablet tablet metoprolol metoprolol 2019-0 Yes Brand Unknown Unknown succinate succinate 04-06 Darren KATZ ER 50 mg ER 50 mg tablet,exte tablet,exte nded nded release 24 release 24 hr hr divalproex divalproex 2019-0 Yes Gould Unknown Unknown 250 mg 250 mg 04-06 Miki KATZ tablet,sukhjinder tablet,sukhjinder yed release yed release buPROPion buPROPion Yes Gould Unknown Unknown HCl XL 300 HCl XL 300 04-06 Miki KATZ mg 24 hr mg 24 hr tablet, tablet, extended extended release release atorvastati atorvastati Yes Gould Unknown Unknown n 10 mg n 10 mg 04-06 Miki KTAZ tablet tablet glipiZIDE glipiZIDE 2020- Yes Gould Unknown Unknown ER 5 mg ER 5 mg 04-06 Miki KATZ tablet, tablet, extended extended release 24 release 24 hr hr omeprazole omeprazole 2019-0 Yes Gould Unknown Unknown 20 mg 20 mg 04-06 Miki KATZ capsule,del capsule,del ayed ayed release release metFORMIN metFORMIN 2019-0 Yes Gould Unknown Unknown 500 mg 500 mg 04-06 Miki KATZ tablet tablet Tylenol 325 Tylenol 325 2019- Yes Gould Unknown Unknown mg tablet mg tablet 04-06 Miki KATZ oxyCODONE 5 oxyCODONE 5 2019- 2020- Yes Brand Unknown Unknown mg tablet mg tablet 04-06 Darren KATZ glipiZIDE glipiZIDE 0 2020- Yes Gould Unknown Unknown ER 5 mg ER 5 mg 04-15 Miki KATZ tablet, tablet, extended extended release 24 release 24 hr hr gabapentin gabapentin 2019- Yes Gould Unknown Unknown 100 mg 100 mg 04-25 Miki KATZ capsule capsule glipiZIDE glipiZIDE 2019-0 Yes Gould Unknown Unknown ER 5 mg ER 5 mg 04-26 Miki KTAZ tablet, tablet, extended extended release 24 release 24 hr hr Vital Signs Vital Name Observation Time Observation Value Comments SYSTOLIC mm[Hg] 2019-05-03 18:10:57 142 mm[Hg] mm[Hg] Method: Sit DIASTOLIC mm[Hg] 2019-05-03 18:10:57 65 mm[Hg] mm[Hg] Method: Sit PULSE 2019-05-03 18:10:57 62 /min /min RESP RATE 2019-05-03 18:10:57 16 /min /min TEMP 2019-05-01 18:10:55 98.2 [degF] Procedures This patient has no known procedures. Results This patient has no known results.
--- OUTSIDE RECORDS SUMMARY | 2019-06-01 14:53 | XMS REPORT ---
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 Musculoskel transfer Musculoske Unknown Latoya etal assistance letal 04-09 Malnoske required 11:34: RN 00 Musculoskel knowledge/s Musculoske Unknown Latoya etal kill letal 04-09 Malnoske deficit: pt 11:34: RN 00 Safety risk for Safety Unknown Jonn hospitaliza 04-09 Lacey tion 15:15: [id number] Bed transfer PT/OT: Bed Resolve 2019-05-02 Jonn Mobility/Tr deficit: Mobility/T d 2 15:45:00 Abhijit joel sit/stand ransfer 15:15: [id number] 00 Bed transfer PT/OT: Bed Resolve 2019-05-02 Jonn Mobility/Tr deficit: Mobility/T d 04-09 15:45:00 Abhijit joel shower/tub ransfer 15:15: [id number] Bed knowledge/s PT/OT: Bed Resolve 2019-05-02 Jonn Mobility/Tr kill Mobility/T d 04-09 15:45:00 Abhijit joel deficit: pt ransfer 15:15: [id number] 00 Bed bed PT/OT: Bed Resolve 2019-05-02 Jonn Mobility/Tr mobility Mobility/T d 24 15:45:00 Abhijit joel deficit ransfer 15:15: [id number] Balance/End balance/milieu coordinator PT/OT: Resolve 2019-05-02 Jonn blake rdination Balance/En d 04-09 15:45:00 Abhijit deficit durance 15:15: [id number] Balance/End endurance PT/OT: Resolve 2019-05-02 Jonn urance deficit Balance/En d 224 15:45:00 Lacey durance 15:15: [id number] 00 Balance/End knowledge/s PT/OT: Resolve 2019-05-02 Jonn blake kill Balance/En d 24 15:45:00 Abhijit deficit: pt durance 15:15: [id number] Gait/Locomo knowledge/s PT/OT: Resolve 2019-05-02 Jonn hurd kill Gait/Locom d 04-09 15:45:00 Lacey problems deficit: pt otion 15:15: [id number] Gait/Locomo knowledge/s PT/OT: Resolve 2019-05-02 Jonn hurd kill Gait/Locom d 04-09 15:45:00 Lacey problems deficit: cg otion 15:15: [id number] 00 Gait/Locomo gait PT/OT: Resolve 2019-05-02 Jonn tirojelio deficit Gait/Locom d 04-09 15:45:00 Lacey problems otion 15:15: [id number] 00 Activity self-care Activity Unknown Latoya deficit [...] d 04-13 09:35:00 Lacey deficit: pt 15:50: [id number] Nutrition nutritional Nutrition Resolve 2019-04-16 Jonn restriction d 04-13 09:35:00 Lacey s 15:50: [id number] 00 Neuro knowledge/s Neuro/Emot Resolve 2019-04-26 Jonn kill ion d 04-13 15:15:00 Abhijit deficit: pt 15:50: [id number] Musculoskel knowledge/s Musculoske Resolve 2019-04-19 Jonn etal kill letal d 04-13 15:32:00 Lacey deficit: pt 15:50: [id number] 00 Endo/Angelito anti-coagul Endo/Angelito Resolve 2019-04-19 Latoya ation d 04-15 15:32:00 Malnoske therapy 09:35: RN 00 Endo/Angelito knowledge/s Endo/Angelito Unknown Ngozi oneill 04-15 Hillebrand deficit: pt 14:00: t 00 [id number] Cardio pacemaker/I Cardiovasc Resolve 2019-05-03 Latoya CD [...] hospitaliza d 05-01 14:20:00 Lacey tion 15:45: [id number] 00 Cardio pacemaker/I Cardiovasc Active Latoya CD ular 05-08 Malnoske 10:15: RN 00 Safety risk for Safety Active Latoya hospitaliza 25 Malnoske tion 10:15: RN 00 Allergies, Adverse Reactions, Alerts Allergy Allergy Type Status Severity Reaction(s) Onset Inactive Treating Comments Name Date Date Clinician nickel Base Active Unknown Blisters 2019-03 Venecia Beam Medications Ordered Filled Start Stop Current Ordering Indication Dosage Frequency Signature Comments Components Medication Medication Date Date Medication? Clinician (SIG) Name Name apixaban 5 apixaban 5 2019-0 2020- Yes Gould Unknown Unknown mg tablet [...] Gould Unknown Unknown 20 mg 20 mg - Miki KATZ capsule,del capsule,del ayed ayed release [...] 18:11:03 64 mm[Hg] mm[Hg] Method: Sit PULSE 2019-05-03 18:10:57 62 /min /min RESP RATE 2019-05-09 18:11:03 16 /min /min TEMP 2019-05-09 18:11:03 97.1 [degF] Procedures This patient has no known procedures. Results This patient has no known results.
--- OUTSIDE RECORDS SUMMARY | 2019-06-01 14:53 | XMS REPORT ---
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 Musculoskel transfer Musculoske Unknown 2020-0 Latoya etal assistance letal 04-09 Malnoske required 11:34: RN 00 Musculoskel knowledge/s Musculoske Unknown Latoya etal kill letal 04-09 Malnoske deficit: pt 11:34: RN 00 Safety risk for Safety Unknown Jonn hospitaliza - Lacey tion 15:15: [id number] Bed transfer PT/OT: Bed Resolve 2019-05-02 Jonn Mobility/Tr deficit: Mobility/T d 2-24 15:45:00 Abhijit joel sit/stand ransfer 15:15: [id number] 00 Bed transfer PT/OT: Bed Resolve 2019-05-02 Jonn Mobility/Tr deficit: Mobility/T d 224 15:45:00 Abhijit joel shower/tub ransfer 15:15: [id number] 00 Bed knowledge/s PT/OT: Bed Resolve 2019-05-02 Jonn Mobility/Tr kill Mobility/T d 224 15:45:00 Abhijit joel deficit: pt ransfer 15:15: [id number] 00 Bed bed PT/OT: Bed Resolve 2019-05-02 Jonn Mobility/Tr mobility Mobility/T d 24 15:45:00 Abhijit joel deficit ransfer 15:15: [id number] 00 Balance/End balance/e learning coordinator PT/OT: Resolve 2019-05-02 Jonn ignacioance rdination Balance/En d 224 15:45:00 Abhijit deficit durance 15:15: [id number] 00 Balance/End endurance PT/OT: Resolve 2019-05-02 Jonn urance deficit Balance/En d 224 15:45:00 Lacey durance 15:15: [id number] 00 Balance/End knowledge/s PT/OT: Resolve 2019-05-02 Jonn urance kill Balance/En d 224 15:45:00 Abhijit deficit: pt durance 15:15: [id number] 00 Gait/Locomo knowledge/s PT/OT: Resolve 2019-05-02 Jonn tion kill Gait/Locom d 2-24 15:45:00 Abhijit problems deficit: pt otion 15:15: [id number] 00 Gait/Locomo knowledge/s PT/OT: Resolve 2019-05-02 Jonn tion kill Gait/Locom d 24 15:45:00 Lacey problems deficit: cg otion 15:15: [id number] Gait/Locomo gait PT/OT: Resolve 2019-05-02 Jonn tion deficit Gait/Locom d 24 15:45:00 Lacey problems otion 15:15: [id number] 00 Activity self-care Activity Unknown Latoya deficit [...] d 04-13 09:35:00 Lacey deficit: pt 15:50: [id number] Nutrition nutritional Nutrition Resolve 2019-04-16 Jonn restriction d 04-13 09:35:00 Lacey s 15:50: [id number] Neuro knowledge/s Neuro/Emot Resolve 2019-04-26 Jonn kill ion d 04-13 15:15:00 Lacey deficit: pt 15:50: [id number] Musculoskel knowledge/s Musculoske Resolve 2019-04-19 Jonn etal kill letal d 04-13 15:32:00 Lacey deficit: pt 15:50: [id number] 00 Endo/Angelito anti-coagul Endo/Angelito Resolve 2019-04-19 Latoya ation d 04-15 15:32:00 Malnoske therapy 09:35: RN 00 Endo/Angelito knowledge/s Endo/Angelito Unknown Ngozi kill 04-15 Hillebrand deficit: pt 14:00: t 00 [id number] Cardio pacemaker/I Cardiovasc Active Latoya CD ular [...] Active Jonn hospitaliza 05-01 Lacey tion 15:45: [id number] 00 Allergies, Adverse Reactions, Alerts Allergy Allergy [...]
--- OUTSIDE RECORDS SUMMARY | 2019-06-01 14:53 | XMS REPORT | Continuity of Care Document ---
:1940 External Reference #:[id number] Author Name Yovanny Castillo DO FACC (transmitted by agent of provider Shelley Lucas) Address [address] [place] [address] Care Team Providers Name Role Phone Shree Fajardo MD - Internal Care Team Information Jacker Feeder Medicine Miki Gould M.D. - Family Medicine Care Team Information Jacker Feeder Problems Active Problems Provider Date Tachycardia-bradycardia Yael [...] Available Procedures Date Code Description Status 05/01/2019 89071 Pace Maker Eval W/Iterative Adjment Dual Lead Completed 04/13/2019 92613 Pace Maker Eval W/Iterative Adjment Dual Lead Completed 04/13/2019 66174 Pace Maker Eval W/Iterative Adjment Dual Lead Completed 04/13/2019 11825 EKG Tracing & Interpretation Completed 04/04/2019 48575 EKG, Interpretation Only Completed 04/03/2019 77817 EKG, Interpretation Only Completed 04/03/2019 35182 Perm Pacemaker Av Sequential Atrial And Ventricular Completed 04/01/2019 54278 EKG, Interpretation Only Completed 04/01/2019 14612 ECHO Transthorasic Realtime 2D W Doppler & Color Flow Hosp Completed Medical Devices Description No Information Available Encounters Type Date Location Provider Dx Diagnosis Office Visit 04/13/2019 [facility] Yael Davis, I48.0 Paroxysmal atrial 11:00a Of Laminating Machine Feeder N.P. fibrillation Z95.0 Presence of cardiac pacemaker I49.5 Sick sinus syndrome I42.9 Cardiomyopathy, unspecified Office Visit 04/04/2019 [facility] Liane I48.0 Paroxysmal atrial 11:30a Assoc,daina Khalil PA-C fibrillation Hospitalists D50.9 Iron deficiency anemia, unspecified R29.6 Repeated falls M25.551 Pain in right hip E11.22 Type 2 diabetes mellitus w diabetic chronic kidney disease N18.9 Chronic kidney disease, unspecified Office Visit 04/03/2019 11:28a [facility] Liane D50.9 Iron deficiency Assoc,daina Khalil PA-C anemia, Hospitalists unspecified E11.22 Type 2 diabetes mellitus w diabetic chronic kidney disease N18.9 Chronic kidney disease, unspecified Office Visit 04/02/2019 11:28a [facility] Chandrakant Castillo, I48.91 Unspecified atrial M.D. fibrillation E83.42 Hypomagnesemia Office Visit 04/01/2019 3:55p [facility] Sara Velasquez, R06.02 Shortness of Of Laminating Machine Feeder M.D. 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, CHILDCARE AIDE disease, stage 4 (severe) D50.9 Iron deficiency anemia, unspecified R29.6 Repeated falls Office Visit 03/31/2019 11:21a [facility] Harman Lopez MD M25.551 Pain in [...] electrocardiogram [ECG] [EKG] Yovanny Castillo, DO [facility] 04/04/2019 I48.0 Paroxysmal atrial fibrillation Liane Khalil [...] Unspecified atrial fibrillation Yovanny Castillo, DO [facility] 04/03/2019 I49.5 Sick sinus syndrome Darren [...] right bundle-branch block Yovanny Castillo, DO [facility] 04/01/2019 R06.02 Shortness of breath Sara [...] 11:00 am - Ica Pacer Schedule at [facility]07/17/2019 11:30 am - Sara Velasquez M.D. at [facility]07/05/2019 2:00 pm - Ica ECHO Schedule at [facility]2019 - Yael S. Foster, N.P.I48.0 Paroxysmal atrial fibrillationRecommendations: Continue Metoprolol, Multaq and KxsrfbeQ84.0 Presence of cardiac pacemakerFollow up:PO/OV 3-4 weeks LS or SF OV LS 3 mo (echo prior) Recommendations:Pacing at the top 99% of the time; <0.1% at the bottom No arrhythmias seen. Keep arm at below level of elbow until pacer pavrjJ44.5 Sick sinus ecqqotnxT33.9 Cardiomyopathy, unspecifiedNew Orders:Echocardiogram, Limited Study, Ordered: 04/13/19Recommendations:Heart function 45-50% in the hospital We will recheck this in a few months. Functional Status Description No Information Available Mental Status Description No Information Available Referrals Description No Information Available
--- OUTSIDE RECORDS SUMMARY | 2019-06-01 14:53 | XMS REPORT | Continuity of Care Document ---
:1940 External Reference #:[id number] Author Name Liane Khalil PA-C (transmitted by agent of provider Elvira Villalobos) Address [address] [place] [address] Care Team Providers Name Role Phone Shree Fajardo MD - Internal Care Team Information Financial Health Counselor Medicine Miki Gould M.D. - Family Medicine Care Team Information Financial Health Counselor Problems Active Problems Provider Date Tachycardia-bradycardia Yael [...] Available Procedures Date Code Description Status 05/01/2019 45246 Pace Maker Eval W/Iterative Adjment Dual Lead Completed 04/13/2019 78054 Pace Maker Eval W/Iterative Adjment Dual Lead Completed 04/13/2019 51812 Pace Maker Eval W/Iterative Adjment Dual Lead Completed 04/13/2019 90679 EKG Tracing & Interpretation Completed 04/03/2019 41554 Perm Pacemaker Av Sequential Atrial And Ventricular Completed 04/01/2019 34631 ECHO Transthorasic Realtime 2D W Doppler & Color Flow Hosp Completed Medical Devices Description No Information Available Encounters Type Date Location Provider Dx Diagnosis Office Visit 04/13/2019 [facility] Yael Davis, I48.0 Paroxysmal atrial 11: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 fibrillation Z95.0 Presence of cardiac pacemaker I49.5 Sick sinus syndrome I42.9 Cardiomyopathy, unspecified Office Visit 04/04/2019 [facility] I48.0 Paroxysmal atrial 11:30a Assoc,daina Khalil PA-C fibrillation Hospitalists D50.9 Iron deficiency anemia, unspecified R29.6 Repeated falls M25.551 Pain in right hip E11.22 Type 2 diabetes mellitus w diabetic chronic kidney disease N18.9 Chronic kidney disease, unspecified Office Visit 04/03/2019 11:28a [facility] Liane D50.9 Iron deficiency Assoc,daina Khalil PA-C anemia, Hospitalists unspecified E11.22 Type 2 diabetes mellitus w diabetic chronic kidney disease N18.9 Chronic kidney disease, unspecified Office Visit 04/02/2019 11:28a [facility] Chandrakant Castillo, I48.91 Unspecified atrial M.D. fibrillation E83.42 Hypomagnesemia Office Visit 04/01/2019 3:55p [facility] Sara Velasquez, R06.02 Shortness of Of Electric Truck Operator M.D. 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 Ryan, N.P. 05/01/2019 I48.0 Paroxysmal atrial fibrillation Ica Pacer Schedule 05/01/2019 I48.0 Paroxysmal atrial fibrillation Yael S. Ryan, N.P. 05/01/2019 I42.9 Cardiomyopathy, unspecified Ica Pacer Schedule 05/01/2019 I42.9 Cardiomyopathy, unspecified Yael S. Ryan, N.P. 05/01/2019 I49.5 Sick sinus syndrome Ica Pacer Schedule 05/01/2019 I49.5 Sick sinus syndrome Yael SNorma Davis, N.P. 05/01/2019 D50.9 Iron deficiency anemia, unspecified Yael SNorma Davis, N.P. 04/13/2019 Z95.0 Presence of cardiac pacemaker Sara Velasquez M.D. 04/13/2019 Z95.0 Presence of cardiac pacemaker Ica Pacer Schedule 04/13/2019 I48.0 Paroxysmal atrial fibrillation Yaelpola Davis, N.P. 04/13/2019 Z95.0 Presence of cardiac pacemaker Yael Davis, N.P. 04/13/2019 I49.5 Sick sinus syndrome Yael Sukh Davis, N.P. 04/13/2019 I42.9 Cardiomyopathy, unspecified Yael SNorma Davis, N.P. 04/04/2019 I48.0 Paroxysmal atrial fibrillation [...] 04/01/2019 N18.4 Chronic kidney disease, stage 4 Baileybreann Stout NP (severe) 04/01/2019 D50.9 Iron deficiency anemia, unspecified Bailey Stout NP 04/01/2019 R29.6 Repeated falls Bailey Cuellofield Stout, ROUTE DELIVERY SUPERVISOR 03/31/2019 M25.551 Pain in right hip Harman Lopez MD 03/31/2019 E83.42 Hypomagnesemia Harman Lopez MD 03/31/2019 R19.7 Diarrhea, unspecified Harman Lopez MD 03/31/2019 W19.xxxA Unspecified fall, initial encounter Harman Lopez MD Plan of Treatment Future Appointment(s):07/17/2019 11:00 am - Ica Pacer Schedule at [facility]07/17/2019 11:30 am - Sara Velasquez M.D. at [facility]07/05/2019 2:00 pm - Ica ECHO Schedule at [facility]2019 - Yael Davis, N.P.Z95.0 Presence of cardiac pacemakerFollow up:PO 3 months Echo 06/2019 Try to move OV w/ SF to for 07/2019Recommendations:Pacer working well. No afib on pacemaker.I48.0 Paroxysmal atrial itrcqkdyoezjA17.9 Cardiomyopathy, rothjimtmcsJ83.5 Sick sinus syndromeRecommendations:You can take Extra Strength Tylenol 500mg Take 2 tab 2-3x daily for pain.D50.9 Iron deficiency anemia, unspecified Functional Status Description No Information Available Mental Status Description No Information Available Referrals Description No Information Available
[2019-06-01] MEDS ORDERED: Albuterol/Ipratropium NEB.SOL* (2.5/0.5 MG) 3 ML NEB.SOLN INH SCH (15:00)
[2019-06-01] MEDS ORDERED: Dronedarone TAB* 400 MG PO ONE (16:38)
[2019-06-01 17:47] LABS: ABS Basophils 0.1 10^3/ul (0-0.2); ABS Eosinophils 0.1 10^3/ul (0-0.6); ABS Lymphocytes 1.7 10^3/ul (1.0-4.8); ABS Monocytes 0.7 10^3/ul (0-0.8); ABS Neutrophils 4.8 10^3/ul (1.5-7.7); Eosinophil % 1.1 %; Hematocrit 34 % (35-47); Hemoglobin 10.8 g/dL (12.0-16.0); Lymphocyte % 22.6 %; Mean Corpuscular HGB Conc 32 g/dL (31-36); Mean Corpuscular Hemoglobin 24 pg (27-31); Mean Corpuscular Volume 74 fL (80-97); Nucleated Red Blood Cells % 0.1; Platelet Count 221 10^3/uL (150-450); Red Blood Count 4.56 10^6 /uL (3.70-4.87); Red Cell Distribution Width 18 % (10-15); White Blood Count 7.3 10^3/uL (3.5-10.8)
[2019-06-01 17:57] LABS: ALT 16 U/L (7-52); Albumin 3.6 g/dL (3.2-5.2); Albumin/Globulin Ratio 1.2 (1-3); Alkaline Phosphatase 86 U/L (34-104); BUN/Creatinine Ratio 19.1 (8-20); Blood Urea Nitrogen 25 mg/dL (6-24); CO2 Carbon Dioxide 23 mmol/L (22-32); Calcium 8.5 mg/dL (8.6-10.3); Chloride 105 mmol/L (101-111); EGFR African American 47.8 (>60); EGFR Non-African American 39.5 (>60); Glucose 74 mg/dL (70-100); Sodium 136 mmol/L (135-145); Total Protein 6.6 g/dL (6.4-8.9)
[2019-06-01 17:59] LABS: Anion Gap 8 mmol/L (2-11); Troponin I 0.01 ng/mL (<0.03)
[2019-06-01 18:33] LABS: Potassium Redraw 3.9 mmol/L (3.5-5.0)
[2019-06-01 18:42] LABS: Free T4 0.94 ng/dL (0.61-1.12)
[2019-06-01 19:07] VITALS: BP 116/63
== END 2019-06-01 19:06 | disposition home or self-care (01) ==
LOC: ED 13:57
DX: I48.92 Unspecified atrial flutter (principal); R06.02 Shortness of breath; R07.9 Chest pain, unspecified; F32.9 Major depressive disorder, single episode, unspecified; I48.91 Unspecified atrial fibrillation; I45.10 Unspecified right bundle-branch block; I10 Essential (primary) hypertension; R94.31 Abnormal electrocardiogram [ECG] [EKG]; K21.9 Gastro-esophageal reflux disease without esophagitis; Z79.899 Other long term (current) drug therapy; E78.00 Pure hypercholesterolemia, unspecified; E11.9 Type 2 diabetes mellitus without complications; Z79.84 Long term (current) use of oral hypoglycemic drugs; Z79.01 Long term (current) use of anticoagulants
CPT/HCPCS: 36415; 71045; 80053; 83605; 84439; 84443; 84484; 85025; 85060; 85379; 93005; 99284; A9270-GY

== ENCOUNTER 2020-07-02 16:13 | Observation (INO) ==
[2020-07-02 18:36] LABS: ABS Basophils 0.1 10^3/ul (0-0.2); ABS Eosinophils 0.1 10^3/ul (0-0.6); ABS Lymphocytes 1.8 10^3/ul (1.0-4.8); ABS Monocytes 0.4 10^3/ul (0-0.8); ABS Neutrophils 3.2 10^3/ul (1.5-7.7); Eosinophil % 1.6 %; Hematocrit 36 % (35-47); Hemoglobin 11.9 g/dL (12.0-16.0); Lymphocyte % 32.5 %; Mean Corpuscular HGB Conc 33 g/dL (31-36); Mean Corpuscular Hemoglobin 28 pg (27-31); Mean Corpuscular Volume 85 fL (80-97); Mean Platelet Volume 8.5 fL (7.4-10.4); Nucleated Red Blood Cells % 0.1; Platelet Count 166 10^3/uL (150-450); Red Cell Distribution Width 16 % (10-15); White Blood Count 5.6 10^3/uL (3.5-10.8)
[2020-07-02 18:54] LABS: Albumin 3.7 g/dL (3.2-5.2); Albumin/Globulin Ratio 1.4 (1-3); Calcium 9.1 mg/dL (8.6-10.3); EGFR African American 55.4 (>60); EGFR Non-African American 45.8 (>60); Globulin 2.6 g/dL (2-4); Potassium 4.5 mmol/L (3.5-5.0); Total Bilirubin 0.3 mg/dL (0.2-1.0); Total Protein 6.3 g/dL (6.4-8.9)
[2020-07-02] MEDS ORDERED: Al Hydrox/Mg Hydrox/Simet LIQ 30 ML UDC PO ONE (21:51)
[2020-07-02] MEDS ORDERED: Dextrose 50% Syringe 50 ml 25 GM/50 ML SYRINGE IV PUSH PRN (22:40)
[2020-07-02] MEDS ORDERED: Lactated Ringers 1000 ml BAG 1,000 ML IV SCH (23:45)
[2020-07-03 08:28] LABS: Magnesium 1.4 mg/dL (1.9-2.7)
[2020-07-03] MEDS ORDERED: Fluticasone NASAL SPRAY 50MCG 16 gm SPRAY BTL INTRANASAL SCH (09:00)
[2020-07-03] MEDS ORDERED: Magnesium Sulf 4 GM/100 ML IV 4,000 MG/100 ML BAG IVPB ONE (09:11)
[2020-07-03] MEDS ORDERED: Aminophylline 25 MG/ML VIAL ONE ×2 (09:34→11:11)
[2020-07-03] MEDS ORDERED: Regadenoson 0.4 MG/5 ML SYRINGE ONE (09:34)
[2020-07-03 16:20] VITALS: BP 146/68
== END 2020-07-03 16:25 | disposition home or self-care (01) ==
LOC: ED 16:13 → INTOOBSV 21:40 → MEDTELE 21:40
PROVIDERS: ADMIT Internal Medicine; ATTEND Pediatrics

== ENCOUNTER 2023-09-15 05:27 | Observation (INO) ==
[2023-09-15 06:13] LABS: ABS Basophils 0.1 10^3/uL (0.0-0.1); ABS Eosinophils 0.3 10^3/uL (0.0-0.5); ABS Lymphocytes 1.5 10^3/uL (1.0-4.8); ABS Monocytes 0.4 10^3/uL (0.0-0.9); ABS Neutrophils 3.4 10^3/uL (1.5-7.6); ABS Nucleated RBC 0.01 10^3/ul; Eosinophil % 4.9 %; Hemoglobin 12.6 g/dL (11.5-14.3); Lymphocyte % 26.6 %; Mean Corpuscular Hemoglobin 28.8 pg (27-33); Mean Corpuscular Hgb Conc 33.3 g/dL (31-36); Mean Corpuscular Volume 86.7 fL (80-97); Mean Platelet Volume 8.2 fL (7.5-11.2); Nucleated Red Blood Cells % 0.1 %/100WBC (0.0-0.8); Platelet Count 180 10^3/uL (150-450); Red Blood Count 4.39 10^6/uL (3.63-4.92); Red Cell Distribution Width 14.3 % (12-17); White Blood Count 5.5 10^3/uL (3.8-11.8)
[2023-09-15 06:41] LABS: INR 1.22 (0.83-1.13)
[2023-09-15 06:58] LABS: Albumin 3.7 g/dL (3.2-5.2); Albumin/Globulin Ratio 1.5 (1-3); Calcium 9.2 mg/dL (8.6-10.3); Creatinine, Serum 1.41 mg/dL (0.51-0.95); Globulin 2.4 g/dL (2-4); Potassium 4.5 mmol/L (3.5-5.0); Total Bilirubin 0.4 mg/dL (0.2-1.0); Total Protein 6.1 g/dL (6.4-8.9); eGFR CKD-EPI 37.7 (>60)
[2023-09-15 07:47] LABS: High Sensitivity Troponin 1 Hr 5 pg/mL (<15)
[2023-09-15 08:13] LABS: Magnesium 1.7 mg/dL (1.9-2.7)
[2023-09-15] MEDS: Iodixanol (CONTRAST) 320 MG/ML 100 ML SDV IV ONE (08:17)
[2023-09-15] MEDS: Lactated Ringers 1000 ml BAG IV.FLUID IV ONE (08:26)
[2023-09-15] MEDS: Magnesium Sulfate 2 gm BAG 2 GM/50 ML BAG IVPB ONE (10:42)
[2023-09-15] MEDS: Metformin ER 500 mg TAB (NF) PO SCH (15:12)
[2023-09-16 06:20] LABS: ABS Eosinophils 0.2 10^3/uL (0.0-0.5); ABS Lymphocytes 1.7 10^3/uL (1.0-4.8); ABS Monocytes 0.5 10^3/uL (0.0-0.9); ABS Neutrophils 2.6 10^3/uL (1.5-7.6); ABS Nucleated RBC 0.01 10^3/ul; Eosinophil % 4.8 %; Hematocrit 35.2 % (35-45); Hemoglobin 11.6 g/dL (11.5-14.3); Lymphocyte % 33.6 %; Mean Corpuscular Hemoglobin 28.7 pg (27-33); Mean Corpuscular Hgb Conc 32.9 g/dL (31-36); Mean Corpuscular Volume 87.2 fL (80-97); Mean Platelet Volume 8.2 fL (7.5-11.2); Nucleated Red Blood Cells % 0.1 %/100WBC (0.0-0.8); Platelet Count 159 10^3/uL (150-450); Red Blood Count 4.04 10^6/uL (3.63-4.92); Red Cell Distribution Width 13.9 % (12-17)
[2023-09-16 06:38] LABS: Calcium 8.8 mg/dL (8.6-10.3); Creatinine, Serum 1.31 mg/dL (0.51-0.95); Phosphorus 3.2 mg/dL (2.5-5.0); Potassium 4.5 mmol/L (3.5-5.0); eGFR CKD-EPI 41.2 (>60)
[2023-09-16] MEDS ORDERED: Aminophylline 25 MG/ML VIAL ONE (08:01)
[2023-09-16] MEDS ORDERED: Regadenoson 0.4 MG/5 ML SYRINGE ONE (08:01)
[2023-09-16] MEDS: Empagliflozin 25 MG TAB PO SCH (11:03)
[2023-09-16 13:32] VITALS: BP 98/80
== END 2023-09-16 15:35 | disposition home or self-care (01) ==
LOC: EDHOLD 05:27 → ED 05:27 → SUATTDRO 10:35 → EDHOLD 15:47 → MED 16:43
PROVIDERS: ADMIT Internal Medicine; ATTEND Hospitalist